=== PATIENT | female | born 1950 | race African-American/Black ===

== ENCOUNTER 2016-09-15 13:21 | Inpatient (IN) | payer MEDICARE, OTHER ==
[~2016-09-15] VITALS: Ht 167.6 cm; Wt 78.3 kg
[2016-09-15] MEDS ORDERED: NITROGLYCERIN 2% 1 GM OINT PKT TD STA (13:30)
[2016-09-15] MEDS ORDERED: ASPIRIN 81 MG TAB PO STA (13:30)
--- NOTE | 2016-09-15 13:49 | ERA ---
ER Documentation Chief Complaint Date/Time DATE: 09/15/16 TIME: 13:42 Chief Complaint HPI 65-year-old female history of coronary artery disease, pulmonary hypertension, mitral valve prolapse who presents emergency room with chest pain. She states that prior to arrival she was sitting in her car and started no pressure-like squeezing chest pain that was substernal and alleviated by her nitroglycerin. The patient also received aspirin and nitroglycerin prior to arrival via EMS. The patient now has 0 out of 10 pain. She denies any pleuritic pain travel or calf swelling. No mid back pain. ROS All systems reviewed and are negative except as per history of present illness. Medications Home Meds Reported Medications Tramadol Hcl* (Ultram*) 50 Mg Tablet, 50 MG PO Q6H Y for PAIN, TAB 09/15/16 Carbamide Peroxide* (Debrox*) 6.5% - 15 Ml Drops, 10 DROP BOTH EARS BID, BOTTLE 09/15/16 Atorvastatin* (Atorvastatin*) 40 Mg Tablet, 40 MG PO QHS, #30 TAB 09/15/16 Promethazine Hcl* (Phenergan*) 25 Mg Tablet, 25 MG PO Q6H Y for NAUSEA AND/OR VOMITING, TAB 09/15/16 Ibuprofen* (Ibuprofen*) 800 Mg Tablet, 800 MG PO Q4 Y for WHEEZING AND SOB, TAB 09/15/16 Mometasone Furoate* (Nasonex*) 50 Mcg/[place] - 17 Gm [place].pump, 2 SPRAY NASAL DAILY, #1 BOTTLE TO EACH NOSTRIL 09/15/16 Albuterol Sulfate* (Ventolin HFA*) 18 Gm Hfa.aer.ad, 2 PUFF INHALATION Q6H, #1 INHALER 09/15/16 Aclidinium [place] (Tudorza Pressair) 400 Mcg Aer.pow.ba, 400 MCG IH BID, EA 09/15/16 Albuterol Sulfate* (Albuterol Sulfate* Neb) 0.083%-3 Ml Neb, 2.5 MG NEB Q3H Y for WHEEZING AND SOB, #30 VIAL 09/15/16 Diphenhydramine Hcl* (Benadryl*) 50 Mg Cap, 50 MG PO Q8 Y for ITCHING, CAP 09/15/16 Esomeprazole Mag Trihydrate (Nexium) 40 Mg Capsule.dr, 40 MG PO DAILY, #30 CAP 09/15/16 Lubiprostone* (Amitiza*) 24 Mcg Capsule, 24 MCG PO BID, #60 CAP 09/15/16 Hydrocodone/Acetaminophen ([place] 10-325 Tablet) 1 Each Tablet, 1 EACH PO Q6 Y for SEVERE PAIN LEVEL 7-10, TAB 09/15/16 Aspirin* (Aspirin* EC) 81 Mg Tablet.dr, 81 MG PO DAILY, TAB 09/15/16 Gabapentin* (Neurontin*) 300 Mg Capsule, 300 MG PO BID, #60 CAP 09/15/16 Baclofen* (Baclofen*) 10 Mg Tablet, 10-20 MG PO BID, TAB 09/15/16 Spironolactone* (Aldactone*) 25 Mg Tablet, 25 MG PO DAILY, #30 TAB 09/15/16 Furosemide* (Furosemide*) 40 Mg Tablet, 40 MG PO DAILY, TAB 09/15/16 Isosorbide Mononitrate* (Isosorbide Mononitrate*) 60 Mg Tab.er.24h, 60 MG PO DAILY, TAB 09/15/16 Atenolol* (Atenolol*) 25 Mg Tablet, 25 MG PO BID, #60 TAB 09/15/16 Allergies Allergies: Coded Allergies: adalimumab (Verified Allergy, Severe, CHEST FLUID RETENTION, 09/15/16) PER PT "HUMIRA GIVES ME PNEUMONIA" azithromycin (Verified Allergy, Severe, HEART CONDITION, 09/15/16) methotrexate (Verified Allergy, Severe, LOW WBC, 09/15/16) PER PT "IT LOWER MY WHITE BLOOD CELL COUNT". rofecoxib (Verified Allergy, Severe, RASH, 09/15/16) aspirin (Verified Adverse Reaction, Unknown, STOMACH PAIN, 09/15/16) celecoxib (Verified Adverse Reaction, Unknown, STOMACH PAIN, 09/15/16) codeine (Verified Adverse Reaction, Unknown, STOMACH PAIN, 09/15/16) FmHx Family History: No diabetes Physical Exam Vitals Vital Signs Date Time Temp Pulse Resp B/P Pulse Ox O2 Delivery O2 Flow Rate FiO2 09/15/16 15:20 86 18 113/70 95 Room Air 09/15/16 14:25 95 17 115/101 97 Room Air 09/15/16 14:03 98.6 98 17 112/78 98 Physical Exam General: Well developed, well nourished, no acute distress Head: Normocephalic, atraumatic. Eyes: Pupils equally reactive, EOM intact ENT: Moist mucous membranes Neck: Supple, no lymphadenopathy Respiratory: Lungs clear bilaterally, no distress Cardiovascular: RRR, no murmurs, rubs, or gallops Abdominal: Soft, non-tender, non-distended, no peritoneal signs : Deferred MSK: No edema, no unilateral swelling, 5/5 strength Neurologic: Alert and oriented, moving all extremities, normal speech, no focal weakness, no cerebellar signs Skin: No rash Psych: Slightly anxious Result Diagram: 09/15/16 1415 09/15/16 1415 Results 24 hrs Laboratory Tests Test 09/15/16 14:15 White Blood Count 8.110^3/ul Red Blood Count 4.7510^6/ul Hemoglobin 13.1g/dl Hematocrit 41.3% Mean Corpuscular Volume 86.9fl Mean Corpuscular Hemoglobin 27.6pg Mean Corpuscular Hemoglobin Concent 31.7g/dl Red Cell Distribution Width 14.4% Platelet Count 11091^3/UL Mean Platelet Volume 9.1fl Neutrophils % 64.1% Lymphocytes % 25.7% Monocytes % 6.7% Eosinophils % 1.9% Basophils % 0.2% Nucleated Red Blood Cells % 0.0/100WBC Neutrophils # 5.210^3/ul Lymphocytes # 2.110^3/ul Monocytes # 0.510^3/ul Eosinophils # 0.210^3/ul Basophils # 0.010^3/ul Nucleated Red Blood Cells # 0.010^3/ul Prothrombin Time 12.6Sec Prothrombin Time Ratio 1.0 INR International Normalized Ratio 0.94 Activated Partial Thromboplast Time 31.3Sec Sodium Level 137mmol/L Potassium Level 2.7mmol/L Chloride Level 96mmol/L Carbon Dioxide Level 33mmol/L Anion Gap 11 Blood Urea Nitrogen 9mg/dl Creatinine 0.82mg/dl Glucose Level 95mg/dl Calcium Level 8.8mg/dl Troponin I < 0.012ng/ml B-Type Natriuretic Peptide 56PG/ML Current Medications Medications (Trade) Dose Ordered Sig/Julius Route PRN Reason Start Time Stop Time Status Last Admin Dose Admin Aspirin (Aspirin) 162 mg ONCE STAT PO 09/15/16 13:30 09/15/16 13:31 DC 09/15/16 14:24 Nitroglycerin (Nitroglycerin 2% Oint) 1 inch ONCE STAT TD 09/15/16 13:30 09/15/16 13:31 DC 09/15/16 14:24 Ondansetron HCl (Zofran Inj) 4 mg ER BRIDGE PRN IV NAUSEA AND/OR VOMITING 09/15/16 16:00 09/16/16 15:59 Acetaminophen (Tylenol Tab) 650 mg ER BRIDGE PRN PO MILD PAIN/FEVER 09/15/16 16:00 09/16/16 15:59 Procedures/MDM EKG, MONITORS, & DIAGNOSTIC IMAGING: EKG: I reviewed and interpreted a 12-lead EKG. Rhythm: Normal sinus rhythm Ectopy: None Intervals: No abnormalities ST segments: No elevations or depressions T waves: No contiguous inversions Repeat EKG: EKG: I reviewed and interpreted a 12-lead EKG. Rhythm: Normal sinus rhythm Ectopy: None Intervals: No abnormalities ST segments: No elevations or depressions T waves: No contiguous inversions Chest x-ray: I reviewed and interpreted a 1 view of the chest Mediastinum: No enlargement Cardiac silhouette: No cardiomegaly Airspace: Clear lung lau bilaterally without evidence of pneumothorax Bones: No evidence of fracture LAB INTERPRETATION: Negative troponin, hypokalemia MEDICAL DECISION MAKING: The patient's history, physical exam and clinical presentation is concerning for possible cardiogenic etiology and acute coronary syndrome. Based on the patient's clinical exam and history and risk factors, I have a much lower clinical concern for pulmonary embolism, acute aortic dissection, pneumothorax, pneumonia, cardiac tamponade HEART Score: 4 MACE Rate: 16.6% Shared Decision Making: We had a conversation regarding risk stratification, MACE rate, and the risks, benefits, alternatives of disposition planning options. Disposition planning: Given the patient's age, comorbidities and description of symptoms I strongly recommend hospitalization and rule out ACS. She states a potential lesion during an angiogram several years ago. No current stents. ER COURSE: Aspirin completed, nitro paste applied. Potassium repleted and patient remains chest pain-free. The patient will be admitted for further management. I kept the patient and/or family informed of laboratory and diagnostic imaging results throughout the emergency room course. DISPOSITION PLAN: Telemetry admission for management of chest pain and rule out of acute coronary syndrome, risk stratification, provocative testing is needed CONSULTATION: Accepting care team and consultations: I discussed the current laboratory data, diagnostic imaging and emergency care provided. Admitting team: Dr. Walker Admitting team indication: Insurance directed Departure Diagnosis: Primary Impression: Chest pain Qualified Code: R07.9 - Chest pain, unspecified type Additional Impression: Hypokalemia Condition: ALLEY Mcfarland MD Sep 15, 2016 13:49
--- NOTE | 2016-09-15 14:12 | RADRPT ---
PROCEDURE: XR Chest. CLINICAL INDICATION: Chest pain and shortness of breath. TECHNIQUE: Single frontal view. COMPARISON: None. FINDINGS: There is a right subclavian vein catheter with the tip in the lower superior vena cava. There is mi ld atelectasis at the lung bases. The lungs are otherwise clear. The heart size is normal. There is no pleural effusion. There is no pneumothorax. IMPRESSION: 1. Right subclavian vein catheter in satisfactory position. 2. Mild atelectasis at the lung bases. 3. Otherwise normal chest x-ray. RPTAT: QQ .Josafat Monteiro MD, Date Time Electronically viewed and signed by .Josafat Monteiro MD, on 09/15/2016 14:12 .R/
[2016-09-15 14:39] LABS: ADD SCAN DIFF NO
[2016-09-15] MEDS ORDERED: ATEN-51 PO (14:41)
[2016-09-15 14:42] LABS: BASOPHILS % 0.2 % (0.0-2.0); EOSINOPHILS # 0.2 10^3/ul (0.0-0.5); EOSINOPHILS % 1.9 % (0.0-7.0); HEMATOCRIT 41.3 % (37.0-47.0); HEMOGLOBIN 13.1 g/dl (12.0-16.0); LYMPHOCYTES # 2.1 10^3/ul (0.8-2.9); LYMPHOCYTES % 25.7 % (15.0-51.0); MEAN CORPUSCULAR HEMOGLOBIN 27.6 pg (29.0-33.0); MEAN CORPUSCULAR HGB CONC 31.7 g/dl (32.0-37.0); MEAN CORPUSCULAR VOLUME 86.9 fl (82.0-101.0); MEAN PLATELET VOLUME 9.1 fl (7.4-10.4); MONOCYTE # 0.5 10^3/ul (0.3-0.9); MONOCYTES % 6.7 % (0.0-11.0); NEUTROPHIL # 5.2 10^3/ul (1.6-7.5); NEUTROPHILS % 64.1 % (39.0-77.0); PLATELET COUNT 310 10^3/UL (140-415); RED BLOOD COUNT 4.75 10^6/ul (4.20-5.40); RED CELL DISTRIBUTION WIDTH 14.4 % (11.5-14.5); WHITE BLOOD COUNT 8.1 10^3/ul (4.8-10.8)
[2016-09-15] MEDS ORDERED: SPIR25TA PO (14:42)
[2016-09-15] MEDS ORDERED: FURO40TA4 PO (14:42)
[2016-09-15] MEDS ORDERED: ISOS60TA PO (14:42)
[2016-09-15] MEDS ORDERED: ASPI-664 PO (14:43)
[2016-09-15] MEDS ORDERED: BACL10TA PO (14:43)
[2016-09-15] MEDS ORDERED: GABA300C PO (14:43)
[2016-09-15] MEDS ORDERED: HYDR-902 PO (14:44)
[2016-09-15] MEDS ORDERED: LUBI24CA7 PO (14:46)
[2016-09-15] MEDS ORDERED: ESOM40CA PO (14:47)
[2016-09-15] MEDS ORDERED: ALBU2.5V3 NEB (14:48)
[2016-09-15] MEDS ORDERED: BEN50 PO (14:48)
[2016-09-15] MEDS ORDERED: NASO17 NASAL (14:49)
[2016-09-15] MEDS ORDERED: ACLI400A2 IH (14:49)
[2016-09-15] MEDS ORDERED: ALBU18HF INHALATION (14:49)
[2016-09-15] MEDS ORDERED: PROM25TA14 PO (14:50)
[2016-09-15] MEDS ORDERED: ATOR40TA68 PO (14:50)
[2016-09-15] MEDS ORDERED: IBUP800T25 PO (14:50)
[2016-09-15] MEDS ORDERED: CARB15DR48 BOTH EARS (14:51)
[2016-09-15] MEDS ORDERED: TRAM-40 PO (14:51)
[2016-09-15 14:57] LABS: INR 0.94; PROTIME 12.6 Sec (12.2-14.2)
[2016-09-15 14:58] LABS: PARTIAL THROMBOPLASTIN TIME 31.3 Sec (25.0-35.0)
[2016-09-15 15:06] LABS: ANION GAP 11 (8-16); BLOOD UREA NITROGEN 9 mg/dl (7-20); CALCIUM 8.8 mg/dl (8.4-10.2); CARBON DIOXIDE 33 mmol/L (21-31); CHLORIDE 96 mmol/L (97-110); CREATININE 0.82 mg/dl (0.44-1.00); GLUCOSE 95 mg/dl (70-220); SODIUM 137 mmol/L (135-144)
[2016-09-15 15:26] LABS: B-TYPE NATRIURETIC PEPTIDE 56 PG/ML (0-125)
[2016-09-15 15:28] LABS: TROPONIN-I < 0.012 ng/ml (0.00-0.12)
[2016-09-15 15:29] LABS: POTASSIUM 2.7 mmol/L (3.5-5.1)
[2016-09-15] MEDS ORDERED: POTASSIUM CHLORIDE (SR) 20 MEQ TAB PO STA (15:46)
[2016-09-15] MEDS ORDERED: ONDANSETRON 4 MG INJ IV PRN (16:00)
[2016-09-15] MEDS ORDERED: ACETAMINOPHEN 325 MG TAB PO PRN ×2 (16:00→18:00)
[2016-09-15] MEDS ORDERED: NACL 0.9% 3 ML SYG IV SCH (18:00)
[2016-09-15] MEDS: ALBUTEROL 18 GM INHALER INH SCH (18:00)
[2016-09-15] MEDS ORDERED: ALBUTEROL 0.083% (NEB) 2.5 MG/3 ML AMP NEB PRN (18:00)
[2016-09-15] MEDS ORDERED: NITROGLYCERIN (SL) 0.4 MG TAB SL PRN (18:00)
[2016-09-15] MEDS ORDERED: IBUPROFEN 800 MG TAB PO PRN (18:00)
[2016-09-15] MEDS ORDERED: HYDROCODONE/APAP (10/325) TAB PO ONE (18:00)
[2016-09-15] MEDS ORDERED: DOCUSATE SODIUM 100 MG CAP PO PRN (18:00)
[2016-09-15] MEDS ORDERED: PROMETHAZINE 25 MG TAB PO PRN (18:00)
[2016-09-15] MEDS ORDERED: NA PHOSPHATE/BIPHOS 133 ML ENEMA PR PRN (18:00)
[2016-09-15] MEDS ORDERED: MAGNESIUM HYDROXIDE 30ML CUP PO PRN (18:00)
[2016-09-15] MEDS ORDERED: morphine 2 MG INJ IV PRN (18:00)
[2016-09-15] MEDS ORDERED: LORAZEPAM 2 MG INJ IV PRN (18:00)
[2016-09-15] MEDS ORDERED: ALBUTEROL/IPRATROPIUM (NEB) 3 ML AMP HHN PRN (18:00)
[2016-09-15 18:33] VITALS: PULSE 92
[2016-09-15 19:57] VITALS: Ht 167.6 cm; Wt 78.3 kg
[2016-09-15 20:14] VITALS: BP 121/69; RESP 18
[2016-09-15 20:18] VITALS: PULSE 84
[2016-09-15 20:19] LABS: CREATINE KINASE 31 IU/L (23-200)
[2016-09-15 20:42] LABS: CK-MB < 0.22 ng/ml (0.0-2.4); TROPONIN-I < 0.012 ng/ml (0.00-0.12)
[2016-09-15] MEDS: GABAPENTIN 300 MG CAP PO SCH (20:52)
[2016-09-15] MEDS: ATENOLOL 25 MG TAB PO SCH (20:52)
[2016-09-15] MEDS: ATORVASTATIN 40 MG TAB PO SCH (20:52)
[2016-09-15] MEDS: HEPARIN 5,000 UNIT/0.5 ML VIAL SC SCH (20:55)
[2016-09-15] MEDS: LUBIPROSTONE 24 MCG CAP PO SCH (21:58)
[2016-09-15] MEDS: CARBAMIDE PEROXIDE 6.5% 15ML OTIC BOTH EARS SCH (21:59)
[2016-09-15] MEDS: traMADol 50 MG TAB PO PRN (22:02)
--- NOTE | 2016-09-15 23:03 | HP ---
Date/Time of Note Date/Time of Note DATE: 09/15/16 TIME: 23:02 Assessment/Plan VTE Prophylaxis VTE Prophylaxis Intervention: heparin Lines/Catheters IV Catheter Type (from [facility]): VINCE CATH Urinary Cath still in place: No Assessment/Plan Chief Complaint/Hosp Course This is a 65 year female being admitted to the telemetry floor for: #1 chest pain: Rule out ACS. Patient does have an extensive cardiac history as well as pulmonary history as well. The current time will trend troponins. Will check 2D echocardiogram. Will replete electrolytes especially potassium as it was 2.7 on admission. Consult cardiology. #2 CHF: The current time there are no signs of CHF exacerbation. Will order an echocardiogram. Consultation to cardiology is in place. #3 pulmonary hypertension: Currently not on any phosphodiesterase inhibitors. On home oxygen of approximately 2-3 L depending on home oxygen saturation. 2D echocardiogram ordered. Will consult pulmonary for any further recommendations #4 pulmonary fibrosis: Continue home inhalers. #4 COPD: Continue home inhalers. #5 hypokalemia: Likely secondary to diuretic use and/or poor p.o. intake. Kidney function right now appears within normal with creatinine of 0.8. Will hold Lasix at this time, continue spironolactone. Replete potassium. recheck BMP in the a.m. #6 rheumatoid arthritis: Continue home medications. #7 history of CVA: Continue home medications. #9 coronary artery disease: Continue home medications please see #1 for further information. #10 rheumatoid arthritis: Continue home medications. #11 DVT and GI prophylaxis: Heparin, Protonix. Further treatment strategy will be implemented as per the clinical course Problems: HPI/ROS Admit Date/Time Admit Date/Time Sep 15, 2016 at 15:43 Hx of Present Illness Chief complaint: Chest pain 65-year-old female history of coronary artery disease, pulmonary hypertension, mitral valve prolapse who presents emergency room with chest pain. She states that prior to arrival she was sitting in her car and started to have pressure- like squeezing chest pain that was substernal and alleviated by her nitroglycerin. The patient also received aspirin and nitroglycerin prior to arrival via EMS. The patient now has 0 out of 10 pain. She denies any pleuritic pain, no recent travel travel or calf swelling. No mid back pain. She does report that over the last few days she has been not having much of an appetite. She has been using her Lasix daily. Allergies: Adalimumab, aspirin, azithromycin, celecoxib, codeine, methotrexate, rofecoxib Medications: See MAR ROS Const: As per HPI Eyes : No pain discharge or redness or change in visual acuity ENT: No pain, sore throat, congestion, congestion, dysphagia or discharge Respiratory: As per HPI Cardiovascular: As per H GI : no change in appetite, abdominal pain, nausea, vomiting, diarrhea, constipation, or change in the color his stool Genitourinary: No dysuria, hematuria, flank pain , discharge or CVA tenderness Musculoskeletal: No joint pain, back pain, neck pain, restricted range of motion in neck or joints Skin: No rash, bruising or hives Neuro: No headache, dizziness, syncope, seizure, focal weakness Endocrine: No polyuria, polydipsia, temperature intolerance Psych: No hallucination, depression, anxiety or suicidal ideation PMH/Family/Social Past Medical History Rheumatoid arthritis, coronary artery disease, COPD, pulmonary fibrosis, mitral valve prolapse, congestive heart failure, CVA in 2004, herniated disc, prediabetes, pelvic tumor status post MAXIME Past Surgical History Cholecystectomy, total abdominal hysterectomy Family History Significant Family History: cancer (Lung cancer: Father) Social History Alcohol Use: none Smoking Status: Former smoker (2 packs per day 35 years, quit 15 years ago) Drug Use: none Exam/Review of Systems Vital Signs Vitals Vital Signs Date Time Temp Pulse Resp B/P Pulse Ox O2 Delivery O2 Flow Rate FiO2 09/15/16 20:18 84 09/15/16 20:14 98.1 18 121/69 93 09/15/16 20:00 Nasal Cannula 2.0 Exam Exam General: Patient is a pleasant and well-developed female lying in bed in no acute distress. HEENT: Atraumatic, normocephalic. The pupils are equal, round and reactive. Extraocular motor are intact, wearing nasal cannula Neck: Supple with full range of motion. No rigidity or meningismus Chest: Nontender Lungs: Clear to auscultation bilaterally no crackles rales or wheezing Heart: Normal S1-S2, Regular rhythm and rate. No overt murmur appreciated Abdomen: Soft , nontender, nondistended , bowel sounds are present. No guarding no rebound tenderness , No masses or organomegaly. No costovertebral temporal angle mass Extremities: Normal to inspection, no edema no cyanosis Neurologic: Normal mental status, speech normal, cranial nerves II through XII are intact, motor and sensory are intact, patient does state that she has some weakness at times on the right lower extremity secondary to her CVA however on exam her strength is 5 out of 5 in bilateral upper and lower extremities while lying down. Additional Comments EKG: Rhythm: Normal sinus rhythm Ectopy: None Intervals: No abnormalities ST segments: No elevations or depressions T waves: No contiguous inversions As per ED physician documented PROCEDURE: XR Chest. CLINICAL INDICATION: Chest pain and shortness of breath. TECHNIQUE: Single frontal view. COMPARISON: None. FINDINGS: There is a right subclavian vein catheter with the tip in the lower superior vena cava. There is mild atelectasis at the lung bases. The lungs are otherwise clear. The heart size is normal. There is no pleural effusion. There is no pneumothorax. IMPRESSION: 1. Right subclavian vein catheter in satisfactory position. 2. Mild atelectasis at the lung bases. 3. Otherwise normal chest x-ray. RPTAT: QQ .Josafat Monteiro MD, MD Date Time Electronically viewed and signed by .Josafat Monteiro MD, MD on 09/15/2016 14:12 Labs Result Diagram: 09/15/16 1415 09/15/16 1415 Medications Medications Current Medications Ondansetron HCl (Zofran Inj) 4 mg Q6H PRN IV NAUSEA AND/OR VOMITING; Start 09/15 at 18:00 Acetaminophen (Tylenol Tab) 650 mg Q6H PRN PO PAIN LEVEL 1-3 OR FEVER; Start at 18:00 Acetaminophen/ Hydrocodone Bitart ([place] (5/325)) 1 tab Q6H PRN PO MODERATE PAIN LEVEL 4-6; Start 09/15/16 at 18:00 Morphine Sulfate (morphine) 2 mg Q4H PRN IV SEVERE PAIN LEVEL 7-10; Start at 18:00 Docusate Sodium (Colace) 100 mg Q12H PRN PO CONSTIPATION; Start 09/15/16 at 18: 00 Magnesium Hydroxide (Milk Of Mag) 30 ml DAILY PRN PO CONSTIPATION; Start at 18:00 Sodium Biphosphate/ Sodium Phosphate (Fleet Enema) 133 ml DAILY PRN [place] CONSTIPATION; Start 09/15/16 at 18:00 Heparin Sodium (Porcine) (Heparin (5000 Units/0.5 ml)) 5,000 unit Q12 SC Last administered on 09/15/16 20:55; Admin Dose 5,000 UNIT; Start 09/15/16 at 21:00 Lorazepam (Ativan) 0.5 mg Q6H PRN IV ANXIETY; Start 09/15/16 at 18:00 Nitroglycerin (Nitroglycerin (Sl Tab) 0.4 Mg) 1 tab Q5M PRN SL ANGINA; Start at 18:00 Albuterol (Ventolin Hfa) 2 puff Q6 INH ; Start 09/15/16 at 18:00 Atenolol (Tenormin) 25 mg BID PO Last administered on 09/15/16 20:52; Admin Dose 25 MG; Start 09/15/16 at 21:00 Atorvastatin Calcium (Lipitor) 40 mg QHS PO Last administered on 09/15/16 20:52 ; Admin Dose 40 MG; Start 09/15/16 at 21:00 Carbamide Peroxide (Debrox Otic) 10 drop BID BOTH EARS Last administered on 09/15 21:59; Admin Dose 10 DROP; Start 09/15/16 at 21:00 Diphenhydramine HCl (Benadryl) 50 mg Q8 PRN PO ITCHING; Start 09/15/16 at 18:00 Furosemide (Lasix) 40 mg DAILY PO ; Start 09/16/16 at 09:00 Gabapentin (Neurontin) 300 mg BID PO Last administered on 09/15/16 20:52; Admin Dose 300 MG; Start 09/15/16 at 21:00 Ibuprofen (Motrin) 800 mg Q4 PRN PO WSOB; Start 09/15/16 at 18:00 Isosorbide Mononitrate (Imdur) 60 mg DAILY PO ; Start 09/16/16 at 09:00 Lubiprostone (Amitiza) 24 mcg BID PO Last administered on 09/15/16 21:58; Admin Dose 24 MCG; Start 09/15/16 at 21:00 Promethazine HCl (Phenergan) 25 mg Q6H PRN PO NAUSEA AND/OR VOMITING; Start 09/15/16 at 18:00 Spironolactone (Aldactone) 25 mg DAILY PO ; Start 09/16/16 at 09:00 Tramadol HCl (Ultram) 50 mg Q6H PRN PO PAIN Last administered on 09/15/16t 22:02 ; Admin Dose 50 MG; Start 09/15/16 at 18:00 Pantoprazole (Protonix Tab) 40 mg DAILY@06 PO ; Start 09/16/16 at 06:00 TREY EUGENE Sep 15, 2016 23:03
[2016-09-16] VITALS (13 sets, daily range): BP systolic 95–126; BP diastolic 53–66; PULSE 66–81; RESP 16–22
[2016-09-16] MEDS: ALBUTEROL 18 GM INHALER INH SCH ×5 (01:06→17:59)
[2016-09-16] MEDS ORDERED: POTASSIUM CHLORIDE (SR) 20 MEQ TAB PO STA (01:36)
[2016-09-16] MEDS: HYDROCODONE/APAP (5/325) TAB PO PRN ×4 (02:05→22:20)
[2016-09-16] MEDS: ONDANSETRON 4 MG INJ IV PRN ×4 (02:06→22:20)
[2016-09-16 02:08] LABS: CREATINE KINASE 30 IU/L (23-200)
[2016-09-16 02:19] LABS: CK-MB 0.33 ng/ml (0.0-2.4)
[2016-09-16 02:20] LABS: TROPONIN-I < 0.012 ng/ml (0.00-0.12)
[2016-09-16] MEDS: PANTOPRAZOLE (EC) 40 MG TAB PO SCH (05:34)
[2016-09-16 06:52] LABS: CHOL/HDL RATIO 3.5 RATIO
[2016-09-16 07:09] LABS: THYROID STIMULATING HORMONE 1.72 MIU/L (0.465-4.680)
[2016-09-16] MEDS ORDERED: PE/SHARK OIL/MO/PETROL 30 GM OINT PR ONE ×2 (09:00→10:00)
[2016-09-16] MEDS ORDERED: MOMETASONE FUROATE NASAL SCH (09:00)
[2016-09-16] MEDS ORDERED: FUROSEMIDE 40 MG TAB PO SCH (09:00)
[2016-09-16] MEDS: LUBIPROSTONE 24 MCG CAP PO SCH ×2 (09:12→20:11)
[2016-09-16] MEDS: CARBAMIDE PEROXIDE 6.5% 15ML OTIC BOTH EARS SCH ×2 (09:12→20:14)
[2016-09-16] MEDS: FLUTICASONE 0.05% 16 GM NAS SPRAY NASAL SCH (09:13)
[2016-09-16] MEDS: SPIRONOLACTONE 25 MG TAB PO SCH (09:14)
[2016-09-16] MEDS: GABAPENTIN 300 MG CAP PO SCH ×2 (09:15→20:11)
[2016-09-16] MEDS: ATENOLOL 25 MG TAB PO SCH ×2 (09:16→21:00)
[2016-09-16] MEDS: ISOSORBIDE MONONITRATE(SR)60 MG TAB PO SCH (09:16)
[2016-09-16] MEDS: HEPARIN 5,000 UNIT/0.5 ML VIAL SC SCH ×2 (09:24→20:13)
[2016-09-16] MEDS: [UNRECOGNIZED DRUG - REMARK] XX SCH ×2 (09:30→17:30)
[2016-09-16] MEDS: traMADol 50 MG TAB PO PRN ×2 (09:35→17:54)
[2016-09-16 10:06] LABS: ADD SCAN DIFF NO
[2016-09-16 10:15] LABS: BASOPHILS % 0.6 % (0.0-2.0); EOSINOPHILS # 0.2 10^3/ul (0.0-0.5); EOSINOPHILS % 4.4 % (0.0-7.0); HEMOGLOBIN 11.9 g/dl (12.0-16.0); MEAN CORPUSCULAR HEMOGLOBIN 28.1 pg (29.0-33.0); MEAN CORPUSCULAR HGB CONC 31.3 g/dl (32.0-37.0); MEAN CORPUSCULAR VOLUME 89.6 fl (82.0-101.0); MEAN PLATELET VOLUME 9.4 fl (7.4-10.4); MONOCYTE # 0.4 10^3/ul (0.3-0.9); MONOCYTES % 8.8 % (0.0-11.0); NEUTROPHIL # 2.3 10^3/ul (1.6-7.5); NEUTROPHILS % 45.6 % (39.0-77.0); PLATELET COUNT 281 10^3/UL (140-415); RED BLOOD COUNT 4.24 10^6/ul (4.20-5.40); RED CELL DISTRIBUTION WIDTH 14.6 % (11.5-14.5)
[2016-09-16 10:31] LABS: CALCIUM 8.8 mg/dl (8.4-10.2); CREATININE 0.81 mg/dl (0.44-1.00); POTASSIUM 4.2 mmol/L (3.5-5.1)
--- NOTE | 2016-09-16 11:12 | PN ---
Date/Time of Note Date/Time of Note DATE: 09/16/16 TIME: 11:09 Assessment/Plan VTE Prophylaxis VTE Prophylaxis Intervention: SCD's Lines/Catheters IV C[facility]ter Type [facility]from [facility] [place] Cath Urinary Cath still in place: No Assessment/Plan Chief Complaint/Hosp Course 1. Chest pain. To rule out acute coronary syndrome. Serial troponins negative so far. Pending 2D echocardiogram. Pending cardiology evaluation. No aspirin since the patient is allergic to aspirin. 2. History of congestive heart failure. No evidence of CHF exacerbation. Pending 2D echocardiogram. Pending cardiology evaluation. 3. Pulmonary hypertension. Continue supplemental oxygen. Pending 2D echocardiogram. 4. COPD. Continue continue inhaled bronchodilators. Continue supplemental oxygen. No evidence of any exacerbation. 5. Hypokalemia. Resolved. 6. Prediabetes. Hemoglobin A1c 6.2. Random blood glucose stable. 7. Dyslipidemia. Continue statins. Fasting lipid panel suboptimal. 8. Essential hypertension. Continue antihypertensives. 9. CAD. Continue statins. The patient is allergic to aspirin. 10. History of stroke. Continue statins. 11. History of rheumatoid arthritis. Monitor. 12. Fluids, electrolytes, and nutrition. Low-cholesterol diet. 13. DVT prophylaxis. Bilateral sequential compression devices. 14. Gastrointestinal prophylaxis. Proton pump inhibitors. 15. Plan. Continue current management. Await pulmonary and cardiology evaluation. Case discussed with Dr. Walker. Problems: Subjective 24 Hr Interval Summary Free Text/Dictation Complains of dyspnea with minimal exertion. Denies any chest pain. Exam/Review of Systems Vital Signs Vitals Vital Signs Date Time Temp Pulse Resp B/P Pulse Ox O2 Delivery O2 Flow Rate FiO2 09/16/16 08:05 79 09/16/16 07:49 98.3 20 109/58 92 09/16/16 01:00 Nasal Cannula 2.0 Intake and Output 09/15/16 09/15/16 09/16/16 15:00 23:00 07:00 Intake Total 840 ml Balance 840 ml Exam General: Adequately build 65 year-old female lying in bed in no apparent distress. HEENT: Normocephalic, atraumatic. Eyes: Anicteric sclerae, conjunctivae clear. ENT: Nasal septum midline, oral mucosa moist. Neck supple, no JVD noticed. Respiratory: Bilaterally diminished breath sounds. Minimal use of accessory muscles of respiration. Cardiovascular: S1, S2 heard. No murmurs or gallops. Abdomen: Soft, nontender, and nondistended. Bowel sounds positive in all 4 quadrants. Genitourinary: Deferred. Extremities: No cyanosis, no edema. Clubbing of fingers. Peripheral pulses palpable. Neurologic: Cranial nerves II through XII grossly intact. The patient is awake, alert, and oriented. Skin: Normal skin turgor. No skin rashes. Results Result Diagram: 09/16/16 0920 09/16/16 0944 Results 24 hrs Laboratory Tests Test 09/15/16 14:15 09/15/16 19:40 09/16/16 01:30 09/16/16 05:50 White Blood Count 8.1 Red Blood Count 4.75 Hemoglobin 13.1 Hematocrit 41.3 Mean Corpuscular Volume 86.9 Mean Corpuscular Hemoglobin 27.6 L Mean Corpuscular Hemoglobin Concent 31.7 L Red Cell Distribution Width 14.4 Platelet Count 310 Mean Platelet Volume 9.1 Neutrophils % 64.1 Lymphocytes % 25.7 Monocytes % 6.7 Eosinophils % 1.9 Basophils % 0.2 Nucleated Red Blood Cells % 0.0 Neutrophils # 5.2 Lymphocytes # 2.1 Monocytes # 0.5 Eosinophils # 0.2 Basophils # 0.0 Nucleated Red Blood Cells # 0.0 Prothrombin Time 12.6 Prothrombin Time Ratio 1.0 INR International Normalized Ratio 0.94 Activated Partial Thromboplast Time 31.3 Sodium Level 137 Potassium Level 2.7 *L Chloride Level 96 L Carbon Dioxide Level 33 H Anion Gap 11 Blood Urea Nitrogen 9 Creatinine 0.82 Glucose Level 95 Calcium Level 8.8 Troponin I < 0.012 < 0.012 < 0.012 B-Type Natriuretic Peptide 56 Creatine Kinase 31 30 Creatine Kinase Index 0.7 1.1 Creatinine Kinase MB (Mass) < 0.22 0.33 Free Thyroxine 1.23 Hemoglobin A1c 6.2 H Triglycerides Level 133 Cholesterol Level 171 LDL Cholesterol, Calculated 96 HDL Cholesterol 48 Cholesterol/HDL Ratio 3.5 Thyroid Stimulating Hormone (TSH) 1.720 Test 09/16/16 09:20 09/16/16 09:44 White Blood Count 5.0 # Red Blood Count 4.24 Hemoglobin 11.9 L Hematocrit 38.0 Mean Corpuscular Volume 89.6 Mean Corpuscular Hemoglobin 28.1 L Mean Corpuscular Hemoglobin Concent 31.3 L Red Cell Distribution Width 14.6 H Platelet Count 281 Mean Platelet Volume 9.4 Neutrophils % 45.6 Lymphocytes % 40.0 Monocytes % 8.8 Eosinophils % 4.4 Basophils % 0.6 Nucleated Red Blood Cells % 0.0 Neutrophils # 2.3 Lymphocytes # 2.0 Monocytes # 0.4 Eosinophils # 0.2 Basophils # 0.0 Nucleated Red Blood Cells # 0.0 Sodium Level 143 Potassium Level 4.2 Chloride Level 100 Carbon Dioxide Level 32 H Anion Gap 15 Blood Urea Nitrogen 12 Creatinine 0.81 Glucose Level 121 Calcium Level 8.8 Medications Medications Current Medications Ondansetron HCl (Zofran Inj) 4 mg Q6H PRN IV NAUSEA AND/OR VOMITING Last administered on 09/16/16 08:19; Admin Dose 4 MG; Start 09/15/16 at 18:00 Acetaminophen (Tylenol Tab) 650 mg Q6H PRN PO PAIN LEVEL 1-3 OR FEVER; Start at 18:00 Acetaminophen/ Hydrocodone Bitart ([place] (5/325)) 1 tab Q6H PRN PO MODERATE PAIN LEVEL 4-6 Last administered on 09/16/16 08:19; Admin Dose 1 TAB; Start 09/15 at 18:00 Morphine Sulfate (morphine) 2 mg Q4H PRN IV SEVERE PAIN LEVEL 7-10; Start at 18:00 Docusate Sodium (Colace) 100 mg Q12H PRN PO CONSTIPATION; Start 09/15/16 at 18: 00 Magnesium Hydroxide (Milk Of Mag) 30 ml DAILY PRN PO CONSTIPATION; Start at 18:00 Sodium Biphosphate/ Sodium Phosphate (Fleet Enema) 133 ml DAILY PRN [place] CONSTIPATION; Start 09/15/16 at 18:00 Heparin Sodium (Porcine) (Heparin (5000 Units/0.5 ml)) 5,000 unit Q12 SC Last administered on 09/16/16 09:24; Admin Dose 5,000 UNIT; Start 09/15/16 at 21:00 Lorazepam (Ativan) 0.5 mg Q6H PRN IV ANXIETY; Start 09/15/16 at 18:00 Nitroglycerin (Nitroglycerin (Sl Tab) 0.4 Mg) 1 tab Q5M PRN SL ANGINA; Start at 18:00 Albuterol (Ventolin Hfa) 2 puff Q6 INH Last administered on 09/16/16 05:35; Admin Dose 2 PUFF; Start 09/15/16 at 18:00 Atenolol (Tenormin) 25 mg BID PO Last administered on 09/16/16 09:16; Admin Dose 25 MG; Start 09/15/16 at 21:00 Atorvastatin Calcium (Lipitor) 40 mg QHS PO Last administered on 09/15/16 20:52 ; Admin Dose 40 MG; Start 09/15/16 at 21:00 Carbamide Peroxide (Debrox Otic) 10 drop BID BOTH EARS Last administered on 09/16 09:12; Admin Dose 10 DROP; Start 09/15/16 at 21:00 Diphenhydramine HCl (Benadryl) 50 mg Q8 PRN PO ITCHING; Start 09/15/16 at 18:00 Furosemide (Lasix) 40 mg DAILY PO ; Start 09/16/16 at 09:00; Status Future Hold Gabapentin (Neurontin) 300 mg BID PO Last administered on 09/16/16 09:15; Admin Dose 300 MG; Start 09/15/16 at 21:00 Ibuprofen (Motrin) 800 mg Q4 PRN PO WSOB; Start 09/15/16 at 18:00 Isosorbide Mononitrate (Imdur) 60 mg DAILY PO Last administered on 09/16/16 09: 16; Admin Dose 60 MG; Start 09/16/16 at 09:00 Lubiprostone (Amitiza) 24 mcg BID PO Last administered on 09/16/16 09:12; Admin Dose 24 MCG; Start 09/15/16 at 21:00 Promethazine HCl (Phenergan) 25 mg Q6H PRN PO NAUSEA AND/OR VOMITING; Start 09/15/16 at 18:00 Spironolactone (Aldactone) 25 mg DAILY PO Last administered on 09/16/16 09:14; Admin Dose 25 MG; Start 09/16/16 at 09:00 Tramadol HCl (Ultram) 50 mg Q6H PRN PO PAIN Last administered on 09/16/16 09:35 ; Admin Dose 50 MG; Start 09/15/16 at 18:00 Pantoprazole (Protonix Tab) 40 mg DAILY@06 PO Last administered on 09/16/16 05: 34; Admin Dose 40 MG; Start 09/16/16 at 06:00 Miscellaneous Information 400 mcg BID IH ; Start 09/16/16 at 09:00; Status UNV Fluticasone Propionate (Flonase 0.05% Nasal) 2 spray DAILY NASAL Last administered on 09/16/16 09:13; Admin Dose 2 SPRAY; Start 09/16/16 at 09:00 Miscellaneous Information (*Order Clarification Bulletin) Tad Castillo) 400 MCG: PLE... Q8H XX ; Start 09/16/16 at 09:30 JESSI VARGAS NP Sep 16, 2016 11:11
[2016-09-16] MEDS: DIPHENHYDRAMINE 50 MG CAP PO PRN ×2 (12:38→20:11)
--- NOTE | 2016-09-16 13:08 | RADRPT ---
Echocardiogram Report Patient Name: SHAHID CHIN Gender: Female Date: 1950 Study Date: 16-Sep-2016 Carousel Operator: Tho [facility] Location: 5545 Ref. Physician: KEIRA VASQUEZ Quality: Adequate Procedures: Transthoracic echocardiogram with complete 2D, M-Mode, and doppler examination. Indications: Chest Pain, Hx of MVP. STEMI. 2D/M Mode Doppler Measurement Value Normal Ranges Measurement Value Normal Ranges LVIDd 2D 4.1 3.5 - 5.6 cm AV Peak Sam 1.2 m/sec LVIDs 2D 2.8 2.1 - 4.1 cm AV Peak PG 6.0 mmHg FS 2D 33.1 % LVOT Peak Sam 0.8 m/sec LVPWd 2D 1.0 0.6 - 1.1 cm LVOT Peak PG 3.0 mmHg IVSd 2D 0.8 0.6 - 1.1 cm MV E Peak Sam 0.9 m/sec IVS/LVPW 2D 0.8 MV A Peak Sam 1.1 m/sec AoR Diam 2D 2.3 2.0 - 3.7 cm MV E/A 0.8 LA/Ao 2D 1 0 - 1 MV Decel Time 204 msec EDV 2D 71.0 cm3 MV E/A 0.8 ESV 2D 21.3 cm3 TR Peak Sam 2.7 m/sec LA Dimen 2D 3.2 2.3 - 4.0 cm TR Peak PG 30.0 mmHg RVSP 40.0 mmHg Findings Left Ventricle: Normal left ventricular systolic function. Normal left ventricular wall thickness. Ejection fraction is visually estimated at 60 %. Tissue Doppler/Mitral Doppler indices are consistent with impaired relaxation (Stage I diastolic dysfunction). Right Ventricle: Normal right ventricular size. Normal right ventricular systolic function. Left Atrium: The left atrium is normal in size. Right Atrium: The right atrium is normal in size. Mitral Valve: Mitral valve leaflets appear mildly thickened. Mild mitral annular calcification. Trace mitral regurgitation. Aortic Valve: Normal appearance of the aortic valve. No significant aortic stenosis or insufficiency. Tricuspid Valve: Normal appearance of the tricuspid valve. Estimated peak PA systolic pressure 40 mmHg. There is mild tricuspid regurgitation. Pulmonic Valve: Pulmonic valve not well visualized. There is trace pulmonic regurgitation. Pericardium: Normal pericardium with no significant pericardial effusion. Aorta: Normal aortic root. IVC: Normal size and normal respiratory collapse consistent with normal right atrial pressure. Conclusions 1.Normal left ventricular systolic function. Normal left ventricular wall thickness. Ejection fraction is visually estimated at 60 %. Tissue Doppler/Mitral Doppler indices are consistent with impaired relaxation (Stage I diastolic dysfunction). 2.Normal appearance of the aortic valve. No significant aortic stenosis or insufficiency. 3.Normal appearance of the tricuspid valve. Estimated peak PA systolic pressure 40 mmHg. There is mild tricuspid regurgitation. 4.Mitral valve leaflets appear mildly thickened. Mild mitral annular calcification. Trace mitral regurgitation. Electronically Signed By: Yordy Jean Baptiste 16-Sep-2016 13:07:36 -0700 Patient Name: SHAHID CHIN Study Date: 16-Sep-2016 [id number]
--- NOTE | 2016-09-16 14:25 | CONS ---
Date/Time of Note Date/Time of Note DATE: 09/16/16 TIME: 14:18 Assessment/Plan Assessment/Plan Additional Assessment/Plan A/P: 1.Chest pain: appears atypical R/O CAD 2. reported hx of CAD/ AR 3. reported history of CVA 4. reported hx of pulmonary fibrosis 5. COPD 6. HTN 7. dyslipidemia 8. reported hx of CHF, Mitral valve prolapse: not confirmed by echo though. ASA R/O AR LEXISCAN TOMORROW. Dr Rodas will f/u tomorrow. tele for now. Consultation Date/Type/Reason Admit Date/Time Sep 15, 2016 at 15:43 Date of Consultation: Sep 16, 2016 Reason for Consultation Chest pain Hx of Present Illness Thank you for this referral. This is a 65-year-old -[place] female with reported history of congestive heart failure mitral valve prolapse and coronary artery disease AR CVA who presented to emergency room with complaint of chest pain. Patient says he was driving through when she had chest pressure anteriorly. There was mild to moderate and lasted for a few minutes probably. Patient took nitroglycerin did not help came to emergency room. Patient currently chest pain-free. Family history patient father probably had an AR. Past medical history: Patient reported that she has had 2 heart attack. Per her report she has had 2 angiogram both of which did not show any major block artery that will require intervention. She also stated she has had a stroke about 10 years ago. She reports history of rheumatoid arthritis hypertension mitral valve prolapse congestive heart failure. Pulmonary fibrosis. Review of system as above only. Social History Alcohol Use: none Smoking Status: Former smoker (2 packs per day 35 years, quit 15 years ago) Drug Use: none Exam/Review of Systems Vital Signs Vitals Vital Signs Date Time Temp Pulse Resp B/P Pulse Ox O2 Delivery O2 Flow Rate FiO2 09/16/16 12:08 80 09/16/16 11:25 98.0 20 118/66 96 09/16/16 07:45 Nasal Cannula 2.0 Intake and Output 09/15/16 09/15/16 09/16/16 15:00 23:00 07:00 Intake Total 840 ml Balance 840 ml Exam General: no acute distress HEENT: NC/AT. pupils are equal. round. NECK: NO JVD. no stridor. CV: RRR. systolic murmur; no gallop or rubs. PULM: no wheezing or rhonchi. GI: SOFT, NT, ND, no rebound or guarding Extremity: trace B/L LE edema. no clubbing. neuro: awake and alert, OX3. Psych: anxious but pleasant rectal: deferred : normal ECH NSR nonspecific T wave abn ECHO reviewed. Results Result Diagram: 09/16/16 0920 09/16/16 0944 Results 24 hrs Laboratory Tests Test 09/15/16 19:40 09/16/16 01:30 09/16/16 05:50 09/16/16 09:20 Creatine Kinase 31 30 Creatine Kinase Index 0.7 1.1 Creatinine Kinase MB (Mass) < 0.22 0.33 Troponin I < 0.012 < 0.012 Free Thyroxine 1.23 Hemoglobin A1c 6.2 H Triglycerides Level 133 Cholesterol Level 171 LDL Cholesterol, Calculated 96 HDL Cholesterol 48 Cholesterol/HDL Ratio 3.5 Thyroid Stimulating Hormone (TSH) 1.720 White Blood Count 5.0 # Red Blood Count 4.24 Hemoglobin 11.9 L Hematocrit 38.0 Mean Corpuscular Volume 89.6 Mean Corpuscular Hemoglobin 28.1 L Mean Corpuscular Hemoglobin Concent 31.3 L Red Cell Distribution Width 14.6 H Platelet Count 281 Mean Platelet Volume 9.4 Neutrophils % 45.6 Lymphocytes % 40.0 Monocytes % 8.8 Eosinophils % 4.4 Basophils % 0.6 Nucleated Red Blood Cells % 0.0 Neutrophils # 2.3 Lymphocytes # 2.0 Monocytes # 0.4 Eosinophils # 0.2 Basophils # 0.0 Nucleated Red Blood Cells # 0.0 Test 09/16/16 09:44 Sodium Level 143 Potassium Level 4.2 Chloride Level 100 Carbon Dioxide Level 32 H Anion Gap 15 Blood Urea Nitrogen 12 Creatinine 0.81 Glucose Level 121 Calcium Level 8.8 Medications Medications Current Medications Ondansetron HCl (Zofran Inj) 4 mg Q6H PRN IV NAUSEA AND/OR VOMITING Last administered on 09/16/16t 08:19; Admin Dose 4 MG; Start 09/15/16 at 18:00 Acetaminophen (Tylenol Tab) 650 mg Q6H PRN PO PAIN LEVEL 1-3 OR FEVER; Start at 18:00 Acetaminophen/ Hydrocodone Bitart ([place] (5/325)) 1 tab Q6H PRN PO MODERATE PAIN LEVEL 4-6 Last administered on 09/16/16 08:19; Admin Dose 1 TAB; Start 09/15 at 18:00 Morphine Sulfate (morphine) 2 mg Q4H PRN IV SEVERE PAIN LEVEL 7-10; Start at 18:00 Docusate Sodium (Colace) 100 mg Q12H PRN PO CONSTIPATION; Start 09/15/16 at 18: 00 Magnesium Hydroxide (Milk Of Mag) 30 ml DAILY PRN PO CONSTIPATION; Start at 18:00 Sodium Biphosphate/ Sodium Phosphate (Fleet Enema) 133 ml DAILY PRN [place] CONSTIPATION; Start 09/15/16 at 18:00 Heparin Sodium (Porcine) (Heparin (5000 Units/0.5 ml)) 5,000 unit Q12 SC Last administered on 09/16/16 09:24; Admin Dose 5,000 UNIT; Start 09/15/16 at 21:00 Lorazepam (Ativan) 0.5 mg Q6H PRN IV ANXIETY; Start 09/15/16 at 18:00 Nitroglycerin (Nitroglycerin (Sl Tab) 0.4 Mg) 1 tab Q5M PRN SL ANGINA; Start at 18:00 Albuterol (Ventolin Hfa) 2 puff Q6 INH Last administered on 09/16/16 12:39; Admin Dose 2 PUFF; Start 09/15/16 at 18:00 Atenolol (Tenormin) 25 mg BID PO Last administered on 09/16/16 09:16; Admin Dose 25 MG; Start 09/15/16 at 21:00 Atorvastatin Calcium (Lipitor) 40 mg QHS PO Last administered on 09/15/16 20:52 ; Admin Dose 40 MG; Start 09/15/16 at 21:00 Carbamide Peroxide (Debrox Otic) 10 drop BID BOTH EARS Last administered on 09/16 09:12; Admin Dose 10 DROP; Start 09/15/16 at 21:00 Diphenhydramine HCl (Benadryl) 50 mg Q8 PRN PO ITCHING Last administered on 09/16 12:38; Admin Dose 50 MG; Start 09/15/16 at 18:00 Furosemide (Lasix) 40 mg DAILY PO ; Start 09/16/16 at 09:00; Status Future Hold Gabapentin (Neurontin) 300 mg BID PO Last administered on 09/16/16 09:15; Admin Dose 300 MG; Start 09/15/16 at 21:00 Ibuprofen (Motrin) 800 mg Q4 PRN PO WSOB; Start 09/15/16 at 18:00 Isosorbide Mononitrate (Imdur) 60 mg DAILY PO Last administered on 09/16/16 09: 16; Admin Dose 60 MG; Start 09/16/16 at 09:00 Lubiprostone (Amitiza) 24 mcg BID PO Last administered on 09/16/16 09:12; Admin Dose 24 MCG; Start 09/15/16 at 21:00 Promethazine HCl (Phenergan) 25 mg Q6H PRN PO NAUSEA AND/OR VOMITING; Start 09/15/16 at 18:00 Spironolactone (Aldactone) 25 mg DAILY PO Last administered on 09/16/16 09:14; Admin Dose 25 MG; Start 09/16/16 at 09:00 Tramadol HCl (Ultram) 50 mg Q6H PRN PO PAIN Last administered on 09/16/16 09:35 ; Admin Dose 50 MG; Start 09/15/16 at 18:00 Pantoprazole (Protonix Tab) 40 mg DAILY@06 PO Last administered on 09/16/16 05: 34; Admin Dose 40 MG; Start 09/16/16 at 06:00 Miscellaneous Information 400 mcg BID IH ; Start 09/16/16 at 09:00; Status UNV Fluticasone Propionate (Flonase 0.05% Nasal) 2 spray DAILY NASAL Last administered on 09/16/16 09:13; Admin Dose 2 SPRAY; Start 09/16/16 at 09:00 Miscellaneous Information (*Order Clarification Bulletin) Tudorza Pressair) 400 MCG: PLE... Q8H XX ; Start 09/16/16 at 09:30 MAHENDRA JACOME MD Sep 16, 2016 14:25
[2016-09-16] MEDS: ATORVASTATIN 40 MG TAB PO SCH (20:11)
[2016-09-16] MEDS: NYSTATIN SUSP 5 ML CUP PO PRN (23:13)
[2016-09-17] VITALS (12 sets, daily range): BP systolic 96–121; BP diastolic 52–78; PULSE 72–92; RESP 20–21
[2016-09-17] MEDS: [UNRECOGNIZED DRUG - REMARK] XX SCH (01:30)
[2016-09-17] MEDS: DIPHENHYDRAMINE 50 MG CAP PO PRN ×2 (04:11→22:58)
[2016-09-17] MEDS: ONDANSETRON 4 MG INJ IV PRN ×3 (05:17→18:48)
[2016-09-17] MEDS: PANTOPRAZOLE (EC) 40 MG TAB PO SCH (05:18)
[2016-09-17] MEDS: HYDROCODONE/APAP (5/325) TAB PO PRN ×3 (05:18→18:48)
[2016-09-17] MEDS: ALBUTEROL 18 GM INHALER INH SCH ×4 (06:45→17:30)
[2016-09-17] MEDS: NYSTATIN SUSP 5 ML CUP PO PRN ×2 (06:49→17:38)
[2016-09-17 07:37] LABS: ADD SCAN DIFF NO
[2016-09-17 07:41] LABS: BASOPHILS % 0.4 % (0.0-2.0); EOSINOPHILS # 0.2 10^3/ul (0.0-0.5); EOSINOPHILS % 4.5 % (0.0-7.0); HEMATOCRIT 34.2 % (37.0-47.0); HEMOGLOBIN 10.9 g/dl (12.0-16.0); LYMPHOCYTES # 2.1 10^3/ul (0.8-2.9); LYMPHOCYTES % 38.8 % (15.0-51.0); MEAN CORPUSCULAR HGB CONC 31.9 g/dl (32.0-37.0); MEAN PLATELET VOLUME 9.7 fl (7.4-10.4); MONOCYTE # 0.6 10^3/ul (0.3-0.9); NEUTROPHIL # 2.3 10^3/ul (1.6-7.5); NEUTROPHILS % 44.4 % (39.0-77.0); PLATELET COUNT 253 10^3/UL (140-415); RED BLOOD COUNT 3.76 10^6/ul (4.20-5.40); RED CELL DISTRIBUTION WIDTH 14.5 % (11.5-14.5); WHITE BLOOD COUNT 5.3 10^3/ul (4.8-10.8)
[2016-09-17 08:04] LABS: CALCIUM 8.9 mg/dl (8.4-10.2); CREATININE 0.89 mg/dl (0.44-1.00); MAGNESIUM 1.8 mg/dl (1.7-2.5); PHOSPHORUS 3.8 mg/dl (2.5-4.9); POTASSIUM 4.1 mmol/L (3.5-5.1)
[2016-09-17] MEDS: traMADol 50 MG TAB PO PRN ×3 (08:29→21:28)
[2016-09-17] MEDS: GABAPENTIN 300 MG CAP PO SCH ×2 (08:29→21:18)
[2016-09-17] MEDS: CARBAMIDE PEROXIDE 6.5% 15ML OTIC BOTH EARS SCH ×3 (09:00→21:18)
[2016-09-17] MEDS: FLUTICASONE 0.05% 16 GM NAS SPRAY NASAL SCH ×2 (09:00→13:05)
[2016-09-17] MEDS: HEPARIN 5,000 UNIT/0.5 ML VIAL SC SCH ×3 (09:00→21:26)
[2016-09-17] MEDS: TIOTROPIUM 18 MCG CAPSULE INHA DEV INH SCH ×2 (09:00→13:04)
[2016-09-17] MEDS: ATENOLOL 25 MG TAB PO SCH ×3 (09:00→21:20)
[2016-09-17] MEDS: SPIRONOLACTONE 25 MG TAB PO SCH ×2 (09:00→13:05)
[2016-09-17] MEDS: LUBIPROSTONE 24 MCG CAP PO SCH ×3 (09:00→21:18)
[2016-09-17] MEDS: ISOSORBIDE MONONITRATE(SR)60 MG TAB PO SCH ×2 (09:00→13:06)
[2016-09-17] MEDS ORDERED: REGADENOSON 0.4 MG/5 ML SYG ONE (09:58)
--- NOTE | 2016-09-17 12:54 | RADRPT ---
PROCEDURE: Nuclear medicine myocardial stress and rest scan. CLINICAL INDICATION: Chest pain. TECHNIQUE: The patient was stressed with 0.4 mg IV Lexiscan. 10.3 mCi technetium 99m Tetrofosmin (Myoview) was administered rest. 29.0 mCi technetium 99m Tetrofosmin (Myoview) was administered du ring stress. Images were obtained and reconstructed in the short axis, horizontal long axis, and ve rtical long axis. Gated images were obtained and ejection fraction was calculated. COMPARISON: No prior study is available for comparison. FINDINGS: The stress and rest images demonstrate normal uptake throughout. There is no fixed abnormality or r eversible abnormality. There is no evidence of transient ischemic dilatation. Wall motion is normal. There is normal wall thickening during systole. Ejection fraction at stress is 62%. IMPRESSION: 1. No evidence of stress induced myocardial ischemia. 2. Ejection fraction at stress is 62%. RPTAT: QQ .Josafat Monteiro MD, MD Date Time Electronically viewed and signed by .Josafat Monteiro MD, on 09/17/2016 12:54 .R/
--- NOTE | 2016-09-17 13:38 | PN ---
Date/Time of Note Date/Time of Note DATE: 09/17/16 TIME: 13:36 Assessment/Plan VTE Prophylaxis VTE Prophylaxis Intervention: SCD's Lines/Catheters IV Catheter Type (from [facility]): mary cath Urinary Cath still in place: No Assessment/Plan Chief Complaint/Hosp Course 1. Chest pain. Acute coronary syndrome ruled out. 2D echocardiogram showing preserved left ventricular ejection fraction. Nuclear medicine cardiac stress test negative for any reversible perfusion defects. 2. Pulmonary hypertension. Continue supplemental oxygen. Pending 2D echocardiogram. 3. COPD. Continue continue inhaled bronchodilators. Continue supplemental oxygen. No evidence of any exacerbation. 4. Hypokalemia. Resolved. 5. Prediabetes. Hemoglobin A1c 6.2. Random blood glucose stable. 6. Dyslipidemia. Continue statins. Fasting lipid panel suboptimal. 7. Essential hypertension. Continue antihypertensives. 8. Reported history of CAD. Continue statins. The patient is allergic to aspirin. 9. History of stroke. Continue statins. 10. History of rheumatoid arthritis. Monitor. 11. Fluids, electrolytes, and nutrition. Low-cholesterol diet. 12. DVT prophylaxis. Bilateral sequential compression devices. 13. Gastrointestinal prophylaxis. Proton pump inhibitors. 14. Plan. Continue current management. Await pulmonary evaluation. Case discussed with Dr. Walker. Problems: Subjective 24 Hr Interval Summary Free Text/Dictation Denies any chest pain. Exam/Review of Systems Vital Signs Vitals Vital Signs Date Time Temp Pulse Resp B/P Pulse Ox O2 Delivery O2 Flow Rate FiO2 09/17/16 12:22 82 09/17/16 12:07 97.7 20 121/78 93 09/17/16 08:30 Nasal Cannula 2.0 Intake and Output 09/16/16 09/16/16 09/17/16 15:00 23:00 07:00 Intake Total 750 ml 240 ml Output Total 700 ml Balance 750 ml -460 ml Exam General: Adequately build 65 year-old female lying in bed in no apparent distress. HEENT: Normocephalic, atraumatic. Eyes: Anicteric sclerae, conjunctivae clear. ENT: Nasal septum midline, oral mucosa moist. Neck supple, no JVD noticed. Respiratory: Bilaterally diminished breath sounds. Minimal use of accessory muscles of respiration. Cardiovascular: S1, S2 heard. No murmurs or gallops. Abdomen: Soft, nontender, and nondistended. Bowel sounds positive in all 4 quadrants. Genitourinary: Deferred. Extremities: No cyanosis, no edema. Clubbing of fingers. Peripheral pulses palpable. Neurologic: Cranial nerves II through XII grossly intact. The patient is awake, alert, and oriented. Skin: Normal skin turgor. No skin rashes. Results Result Diagram: 09/17/16 0641 09/17/16 0641 Results 24 hrs Laboratory Tests Test 09/17/16 06:41 White Blood Count 5.3 Red Blood Count 3.76 L Hemoglobin 10.9 L Hematocrit 34.2 L Mean Corpuscular Volume 91.0 Mean Corpuscular Hemoglobin 29.0 Mean Corpuscular Hemoglobin Concent 31.9 L Red Cell Distribution Width 14.5 Platelet Count 253 Mean Platelet Volume 9.7 Neutrophils % 44.4 Lymphocytes % 38.8 Monocytes % 11.0 Eosinophils % 4.5 Basophils % 0.4 Nucleated Red Blood Cells % 0.0 Neutrophils # 2.3 Lymphocytes # 2.1 Monocytes # 0.6 Eosinophils # 0.2 Basophils # 0.0 Nucleated Red Blood Cells # 0.0 Sodium Level 140 Potassium Level 4.1 Chloride Level 97 Carbon Dioxide Level 31 Anion Gap 16 Blood Urea Nitrogen 13 Creatinine 0.89 Glucose Level 97 Calcium Level 8.9 Phosphorus Level 3.8 Magnesium Level 1.8 Medications Medications Current Medications Ondansetron HCl (Zofran Inj) 4 mg Q6H PRN IV NAUSEA AND/OR VOMITING Last administered on 09/17/16 12:56; Admin Dose 4 MG; Start 09/15/16 at 18:00 Acetaminophen (Tylenol Tab) 650 mg Q6H PRN PO PAIN LEVEL 1-3 OR FEVER; Start at 18:00 Acetaminophen/ Hydrocodone Bitart ([place] (5/325)) 1 tab Q6H PRN PO MODERATE PAIN LEVEL 4-6 Last administered on 09/17/16 12:56; Admin Dose 1 TAB; Start 09/15 at 18:00 Morphine Sulfate (morphine) 2 mg Q4H PRN IV SEVERE PAIN LEVEL 7-10; Start at 18:00 Docusate Sodium (Colace) 100 mg Q12H PRN PO CONSTIPATION; Start 09/15/16 at 18: 00 Magnesium Hydroxide (Milk Of Mag) 30 ml DAILY PRN PO CONSTIPATION; Start at 18:00 Sodium Biphosphate/ Sodium Phosphate (Fleet Enema) 133 ml DAILY PRN [place] CONSTIPATION; Start 09/15/16 at 18:00 Heparin Sodium (Porcine) (Heparin (5000 Units/0.5 ml)) 5,000 unit Q12 SC Last administered on 09/17/16 13:12; Admin Dose 5,000 UNIT; Start 09/15/16 at 21:00 Lorazepam (Ativan) 0.5 mg Q6H PRN IV ANXIETY; Start 09/15/16 at 18:00 Nitroglycerin (Nitroglycerin (Sl Tab) 0.4 Mg) 1 tab Q5M PRN SL ANGINA; Start at 18:00 Albuterol (Ventolin Hfa) 2 puff Q6 INH Last administered on 09/17/16 12:55; Admin Dose 2 PUFF; Start 09/15/16 at 18:00 Atenolol (Tenormin) 25 mg BID PO Last administered on 09/17/16 13:04; Admin Dose 25 MG; Start 09/15/16 at 21:00 Atorvastatin Calcium (Lipitor) 40 mg QHS PO Last administered on 09/16/16 20:11 ; Admin Dose 40 MG; Start 09/15/16 at 21:00 Carbamide Peroxide (Debrox Otic) 10 drop BID BOTH EARS Last administered on 09/17 13:02; Admin Dose 10 DROP; Start 09/15/16 at 21:00 Diphenhydramine HCl (Benadryl) 50 mg Q8 PRN PO ITCHING Last administered on 09/17 04:11; Admin Dose 50 MG; Start 09/15/16 at 18:00 Furosemide (Lasix) 40 mg DAILY PO ; Start 09/16/16 at 09:00; Status Future Hold Gabapentin (Neurontin) 300 mg BID PO Last administered on 09/17/16 08:29; Admin Dose 300 MG; Start 09/15/16 at 21:00 Ibuprofen (Motrin) 800 mg Q4 PRN PO WSOB; Start 09/15/16 at 18:00 Isosorbide Mononitrate (Imdur) 60 mg DAILY PO Last administered on 09/17/16 13: 06; Admin Dose 60 MG; Start 09/16/16 at 09:00 Lubiprostone (Amitiza) 24 mcg BID PO Last administered on 09/17/16 13:03; Admin Dose 24 MCG; Start 09/15/16 at 21:00 Promethazine HCl (Phenergan) 25 mg Q6H PRN PO NAUSEA AND/OR VOMITING; Start 09/15/16 at 18:00 Spironolactone (Aldactone) 25 mg DAILY PO Last administered on 09/17/16 13:05; Admin Dose 25 MG; Start 09/16/16 at 09:00 Tramadol HCl (Ultram) 50 mg Q6H PRN PO PAIN Last administered on 09/17/16 08:29 ; Admin Dose 50 MG; Start 09/15/16 at 18:00 Pantoprazole (Protonix Tab) 40 mg DAILY@06 PO Last administered on 09/17/16 05: 18; Admin Dose 40 MG; Start 09/16/16 at 06:00 Tiotropium [place] (Spiriva) 1 inh DAILY INH Last administered on 09/17/16 13: 04; Admin Dose 1 INH; Start 09/17/16 at 09:00 Fluticasone Propionate (Flonase 0.05% Nasal) 2 spray DAILY NASAL Last administered on 09/17/16 13:05; Admin Dose 2 SPRAY; Start 09/16/16 at 09:00 Nystatin (Nystatin Susp) 5 ml Q6 PRN PO DRY MOUTH Last administered on 06:49; Admin Dose 5 ML; Start 09/16/16 at 23:00 JESSI VARGAS NP Sep 17, 2016 13:38
--- NOTE | 2016-09-17 14:21 | EN ---
Date/Time of Note Date/Time of Note DATE: 09/17/16 TIME: 14:19 Event Note Cardiology Cardiology Event Note Lexiscan cardiac nuclear perfusion report 09/17/2016 This is a 65-year-old female who presents with chest pain Baseline ECG sinus rhythm at 66 bpm, normal QRS, nonspecific STT wave abnormalities Baseline blood pressure 123/79 Lexiscan was administered as per protocol No symptos No significant STT wave abnormalities No arrhythmias Peak heart rate was 1 31 bpm, peak blood pressure was 123/79 Nonischemic ECG interpretation The nuclear portion will be interpreted by our radiology colleagues Erick Ibrahim DO Sep 17, 2016 14:21
--- NOTE | 2016-09-17 14:25 | CONS ---
Date/Time of Note Date/Time of Note DATE: 09/17/16 TIME: 14:23 Assessment/Plan Assessment/Plan Additional Assessment/Plan Chest pain, resolved Normal nuclear cardiac perfusion study 09/17/2016 Preserved ejection fraction Diastolic dysfunction Pulmonary disease -Patient with no further episodes of chest discomfort. Cardiac nuclear perfusion study was negative for any significant defects. Given atypical nature of symptoms and no further symptoms as well as negative nuclear perfusion study, no further inpatient cardiac workup needed at the current time. Consultation Date/Type/Reason Admit Date/Time Sep 15, 2016 at 15:43 Initial Consult Date 09/16/16 Type of Consultation: cv 24 HR Interval Summary Free Text/Dictation Denies any shortness of breath or further chest pain. Feeling better. Chest pain complaining of was sharp in nature Exam/Review of Systems Vital Signs Vitals Vital Signs Date Time Temp Pulse Resp B/P Pulse Ox O2 Delivery O2 Flow Rate FiO2 09/17/16 12:22 82 09/17/16 12:07 97.7 20 121/78 93 09/17/16 08:30 Nasal Cannula 2.0 Intake and Output 09/16/16 09/16/16 09/17/16 15:00 23:00 07:00 Intake Total 750 ml 240 ml Output Total 700 ml Balance 750 ml -460 ml Exam No apparent distress Constitutional: alert, oriented Head: normocephalic Neck: supple Respiratory: other (Coarse breath sounds bilaterally, no wheezing) Cardiovascular: other (S1-S2 heard), regular rate and rhythm Gastrointestinal: bowel sounds, non-tender, soft Extremities: edema Results Result Diagram: 09/17/16 0641 09/17/16 0641 Results 24 hrs Laboratory Tests Test 09/17/16 06:41 White Blood Count 5.3 Red Blood Count 3.76 L Hemoglobin 10.9 L Hematocrit 34.2 L Mean Corpuscular Volume 91.0 Mean Corpuscular Hemoglobin 29.0 Mean Corpuscular Hemoglobin Concent 31.9 L Red Cell Distribution Width 14.5 Platelet Count 253 Mean Platelet Volume 9.7 Neutrophils % 44.4 Lymphocytes % 38.8 Monocytes % 11.0 Eosinophils % 4.5 Basophils % 0.4 Nucleated Red Blood Cells % 0.0 Neutrophils # 2.3 Lymphocytes # 2.1 Monocytes # 0.6 Eosinophils # 0.2 Basophils # 0.0 Nucleated Red Blood Cells # 0.0 Sodium Level 140 Potassium Level 4.1 Chloride Level 97 Carbon Dioxide Level 31 Anion Gap 16 Blood Urea Nitrogen 13 Creatinine 0.89 Glucose Level 97 Calcium Level 8.9 Phosphorus Level 3.8 Magnesium Level 1.8 Medications Medications Current Medications Ondansetron HCl (Zofran Inj) 4 mg Q6H PRN IV NAUSEA AND/OR VOMITING Last administered on 09/17/16 12:56; Admin Dose 4 MG; Start 09/15/16 at 18:00 Acetaminophen (Tylenol Tab) 650 mg Q6H PRN PO PAIN LEVEL 1-3 OR FEVER; Start at 18:00 Acetaminophen/ Hydrocodone Bitart ([place] (5/325)) 1 tab Q6H PRN PO MODERATE PAIN LEVEL 4-6 Last administered on 09/17/16 12:56; Admin Dose 1 TAB; Start 09/15 at 18:00 Morphine Sulfate (morphine) 2 mg Q4H PRN IV SEVERE PAIN LEVEL 7-10; Start at 18:00 Docusate Sodium (Colace) 100 mg Q12H PRN PO CONSTIPATION; Start 09/15/16 at 18: 00 Magnesium Hydroxide (Milk Of Mag) 30 ml DAILY PRN PO CONSTIPATION; Start at 18:00 Sodium Biphosphate/ Sodium Phosphate (Fleet Enema) 133 ml DAILY PRN [place] CONSTIPATION; Start 09/15/16 at 18:00 Heparin Sodium (Porcine) (Heparin (5000 Units/0.5 ml)) 5,000 unit Q12 SC Last administered on 09/17/16 13:12; Admin Dose 5,000 UNIT; Start 09/15/16 at 21:00 Lorazepam (Ativan) 0.5 mg Q6H PRN IV ANXIETY; Start 09/15/16 at 18:00 Nitroglycerin (Nitroglycerin (Sl Tab) 0.4 Mg) 1 tab Q5M PRN SL ANGINA; Start at 18:00 Albuterol (Ventolin Hfa) 2 puff Q6 INH Last administered on 09/17/16 12:55; Admin Dose 2 PUFF; Start 09/15/16 at 18:00 Atenolol (Tenormin) 25 mg BID PO Last administered on 09/17/16 13:04; Admin Dose 25 MG; Start 09/15/16 at 21:00 Atorvastatin Calcium (Lipitor) 40 mg QHS PO Last administered on 09/16/16 20:11 ; Admin Dose 40 MG; Start 09/15/16 at 21:00 Carbamide Peroxide (Debrox Otic) 10 drop BID BOTH EARS Last administered on 09/17 13:02; Admin Dose 10 DROP; Start 09/15/16 at 21:00 Diphenhydramine HCl (Benadryl) 50 mg Q8 PRN PO ITCHING Last administered on 09/17 04:11; Admin Dose 50 MG; Start 09/15/16 at 18:00 Furosemide (Lasix) 40 mg DAILY PO ; Start 09/16/16 at 09:00; Status Future Hold Gabapentin (Neurontin) 300 mg BID PO Last administered on 09/17/16 08:29; Admin Dose 300 MG; Start 09/15/16 at 21:00 Ibuprofen (Motrin) 800 mg Q4 PRN PO WSOB; Start 09/15/16 at 18:00 Isosorbide Mononitrate (Imdur) 60 mg DAILY PO Last administered on 09/17/16 13: 06; Admin Dose 60 MG; Start 09/16/16 at 09:00 Lubiprostone (Amitiza) 24 mcg BID PO Last administered on 09/17/16 13:03; Admin Dose 24 MCG; Start 09/15/16 at 21:00 Promethazine HCl (Phenergan) 25 mg Q6H PRN PO NAUSEA AND/OR VOMITING; Start 09/15/16 at 18:00 Spironolactone (Aldactone) 25 mg DAILY PO Last administered on 09/17/16 13:05; Admin Dose 25 MG; Start 09/16/16 at 09:00 Tramadol HCl (Ultram) 50 mg Q6H PRN PO PAIN Last administered on 09/17/16 08:29 ; Admin Dose 50 MG; Start 09/15/16 at 18:00 Pantoprazole (Protonix Tab) 40 mg DAILY@06 PO Last administered on 09/17/16 05: 18; Admin Dose 40 MG; Start 09/16/16 at 06:00 Tiotropium [place] (Spiriva) 1 inh DAILY INH Last administered on 09/17/16 13: 04; Admin Dose 1 INH; Start 09/17/16 at 09:00 Fluticasone Propionate (Flonase 0.05% Nasal) 2 spray DAILY NASAL Last administered on 09/17/16 13:05; Admin Dose 2 SPRAY; Start 09/16/16 at 09:00 Nystatin (Nystatin Susp) 5 ml Q6 PRN PO DRY MOUTH Last administered on 06:49; Admin Dose 5 ML; Start 09/16/16 at 23:00 Erick Ibrahim DO Sep 17, 2016 14:25
[2016-09-17] MEDS ORDERED: LORAZEPAM 0.5 MG TAB PO PRN (15:30)
--- NOTE | 2016-09-17 15:34 | CONS ---
Date/Time of Note Date/Time of Note DATE: 09/17/16 TIME: 15:27 Assessment/Plan Assessment/Plan Additional Assessment/Plan Assessment 1. Chest pain rule out coronary artery disease. Patient underwent nuclear stress test today pending these results 2. History of pulmonary fibrosis patient confirmed from lung biopsy 3. History of COPD remote tobacco use. 4. Chronic hypoxemic respiratory failure secondary to above Plan 1. Await nuclear stress test results cardiac recommendations 2. Continue supplemental O2 3. Continue bronchodilators 4. Outpatient pulmonary function test and CT of the chest to evaluate lung parenchyma Disposition Stable for discharge once cleared by cardiology. Consultation Date/Type/Reason Admit Date/Time Sep 15, 2016 at 15:43 Date of Consultation: Sep 17, 2016 Type of Consultation: Pulmonary Reason for Consultation Shortness of breath Hx of Present Illness 65-year-old lady who presented to [facility] for evaluation of central chest pain. She describes her pain is central no radiation no nausea no vomiting no hemoptysis no hematemesis she did have mild associated shortness of breath but no diaphoresis. No prior history of coronary artery disease no history of stent placements no history of angina. She has a history of pulmonary fibrosis and COPD confirmed from lung biopsy performed at [facility], [place]. She was seen by pulmonary physician maintained on inhalers. Unclear whether she has a history of pulmonary hypertension however echocardiogram performed here shows mild to moderate pulmonary hypertension with mild tricuspid regurgitation. She has a preserved ejection fraction. She is on supplemental oxygen and has been so for the past 7 + years. She is an ex-smoker quit smoking 17 years ago has no history of inhalational injury. She has limited exertion secondary to her dyspnea. Negative other than that mentioned above Past Medical History Pulmonary hypertension COPD Chronic tobacco use Social History Alcohol Use: none Smoking Status: Former smoker (2 packs per day 35 years, quit 15 years ago) Drug Use: none Exam/Review of Systems Vital Signs Vitals Vital Signs Date Time Temp Pulse Resp B/P Pulse Ox O2 Delivery O2 Flow Rate FiO2 09/17/16 12:22 82 09/17/16 12:07 97.7 20 121/78 93 09/17/16 08:30 Nasal Cannula 2.0 Intake and Output 09/16/16 09/16/16 09/17/16 15:00 23:00 07:00 Intake Total 750 ml 240 ml Output Total 700 ml Balance 750 ml -460 ml Exam GENERAL: Elderly lady well-nourished well-developed comfortable at rest VITAL SIGNS: per chart NECK: Supple. No JVD or lymphadenopathy. CARDIAC EXAM: S1, S2. No added sounds or murmurs. CHEST: diminished air entry both lung bases few rales ABDOMEN: Soft, nontender. No guarding or rebound. EXTREMITIES: No cyanosis, clubbing or edema. NEUROLOGIC: Generalized weakness. No focal deficits. Results Result Diagram: 09/17/16 0641 09/17/16 0641 Results 24 hrs Laboratory Tests Test 09/17/16 06:41 White Blood Count 5.3 Red Blood Count 3.76 L Hemoglobin 10.9 L Hematocrit 34.2 L Mean Corpuscular Volume 91.0 Mean Corpuscular Hemoglobin 29.0 Mean Corpuscular Hemoglobin Concent 31.9 L Red Cell Distribution Width 14.5 Platelet Count 253 Mean Platelet Volume 9.7 Neutrophils % 44.4 Lymphocytes % 38.8 Monocytes % 11.0 Eosinophils % 4.5 Basophils % 0.4 Nucleated Red Blood Cells % 0.0 Neutrophils # 2.3 Lymphocytes # 2.1 Monocytes # 0.6 Eosinophils # 0.2 Basophils # 0.0 Nucleated Red Blood Cells # 0.0 Sodium Level 140 Potassium Level 4.1 Chloride Level 97 Carbon Dioxide Level 31 Anion Gap 16 Blood Urea Nitrogen 13 Creatinine 0.89 Glucose Level 97 Calcium Level 8.9 Phosphorus Level 3.8 Magnesium Level 1.8 Medications Medications Current Medications Ondansetron HCl (Zofran Inj) 4 mg Q6H PRN IV NAUSEA AND/OR VOMITING Last administered on 09/17/16 12:56; Admin Dose 4 MG; Start 09/15/16 at 18:00 Acetaminophen (Tylenol Tab) 650 mg Q6H PRN PO PAIN LEVEL 1-3 OR FEVER; Start at 18:00 Acetaminophen/ Hydrocodone Bitart ([place] (5/325)) 1 tab Q6H PRN PO MODERATE PAIN LEVEL 4-6 Last administered on 09/17/16 12:56; Admin Dose 1 TAB; Start 09/15 at 18:00 Morphine Sulfate (morphine) 2 mg Q4H PRN IV SEVERE PAIN LEVEL 7-10; Start at 18:00 Docusate Sodium (Colace) 100 mg Q12H PRN PO CONSTIPATION; Start 09/15/16 at 18: 00 Magnesium Hydroxide (Milk Of Mag) 30 ml DAILY PRN PO CONSTIPATION; Start at 18:00 Sodium Biphosphate/ Sodium Phosphate (Fleet Enema) 133 ml DAILY PRN [place] CONSTIPATION; Start 09/15/16 at 18:00 Heparin Sodium (Porcine) (Heparin (5000 Units/0.5 ml)) 5,000 unit Q12 SC Last administered on 09/17/16 13:12; Admin Dose 5,000 UNIT; Start 09/15/16 at 21:00 Nitroglycerin (Nitroglycerin (Sl Tab) 0.4 Mg) 1 tab Q5M PRN SL ANGINA; Start at 18:00 Albuterol (Ventolin Hfa) 2 puff Q6 INH Last administered on 09/17/16 12:55; Admin Dose 2 PUFF; Start 09/15/16 at 18:00 Atenolol (Tenormin) 25 mg BID PO Last administered on 09/17/16 13:04; Admin Dose 25 MG; Start 09/15/16 at 21:00 Atorvastatin Calcium (Lipitor) 40 mg QHS PO Last administered on 09/16/16 20:11 ; Admin Dose 40 MG; Start 09/15/16 at 21:00 Carbamide Peroxide (Debrox Otic) 10 drop BID BOTH EARS Last administered on 09/17 13:02; Admin Dose 10 DROP; Start 09/15/16 at 21:00 Diphenhydramine HCl (Benadryl) 50 mg Q8 PRN PO ITCHING Last administered on 09/17 04:11; Admin Dose 50 MG; Start 09/15/16 at 18:00 Furosemide (Lasix) 40 mg DAILY PO ; Start 09/16/16 at 09:00; Status Future Hold Gabapentin (Neurontin) 300 mg BID PO Last administered on 09/17/16 08:29; Admin Dose 300 MG; Start 09/15/16 at 21:00 Ibuprofen (Motrin) 800 mg Q4 PRN PO WSOB; Start 09/15/16 at 18:00 Isosorbide Mononitrate (Imdur) 60 mg DAILY PO Last administered on 09/17/16 13: 06; Admin Dose 60 MG; Start 09/16/16 at 09:00 Lubiprostone (Amitiza) 24 mcg BID PO Last administered on 09/17/16 13:03; Admin Dose 24 MCG; Start 09/15/16 at 21:00 Promethazine HCl (Phenergan) 25 mg Q6H PRN PO NAUSEA AND/OR VOMITING; Start 09/15/16 at 18:00 Spironolactone (Aldactone) 25 mg DAILY PO Last administered on 09/17/16 13:05; Admin Dose 25 MG; Start 09/16/16 at 09:00 Tramadol HCl (Ultram) 50 mg Q6H PRN PO PAIN Last administered on 09/17/16 08:29 ; Admin Dose 50 MG; Start 09/15/16 at 18:00 Pantoprazole (Protonix Tab) 40 mg DAILY@06 PO Last administered on 09/17/16 05: 18; Admin Dose 40 MG; Start 09/16/16 at 06:00 Tiotropium [place] (Spiriva) 1 inh DAILY INH Last administered on 09/17/16 13: 04; Admin Dose 1 INH; Start 09/17/16 at 09:00 Fluticasone Propionate (Flonase 0.05% Nasal) 2 spray DAILY NASAL Last administered on 09/17/16 13:05; Admin Dose 2 SPRAY; Start 09/16/16 at 09:00 Nystatin (Nystatin Susp) 5 ml Q6 PRN PO DRY MOUTH Last administered on 06:49; Admin Dose 5 ML; Start 09/16/16 at 23:00 Lorazepam (Ativan) 0.5 mg Q6H PRN PO ANXIETY; Start 09/17/16 at 15:30 CHELSEY CASILLAS MD, [facility] Sep 17, 2016 15:33
[2016-09-17] MEDS: ATORVASTATIN 40 MG TAB PO SCH (21:19)
[2016-09-18] VITALS (10 sets, daily range): BP systolic 94–130; BP diastolic 50–88; PULSE 69–87; RESP 14–21
[2016-09-18] MEDS: HYDROCODONE/APAP (5/325) TAB PO PRN ×3 (01:10→14:08)
[2016-09-18] MEDS: ALBUTEROL 18 GM INHALER INH SCH ×3 (01:10→12:00)
[2016-09-18] MEDS: ONDANSETRON 4 MG INJ IV PRN ×3 (01:10→14:11)
[2016-09-18] MEDS: NYSTATIN SUSP 5 ML CUP PO PRN (01:15)
[2016-09-18] MEDS: traMADol 50 MG TAB PO PRN ×2 (04:30→11:31)
[2016-09-18] MEDS: DIPHENHYDRAMINE 50 MG CAP PO PRN (06:47)
[2016-09-18] MEDS: PANTOPRAZOLE (EC) 40 MG TAB PO SCH (06:48)
[2016-09-18] MEDS: LUBIPROSTONE 24 MCG CAP PO SCH (09:15)
[2016-09-18] MEDS: GABAPENTIN 300 MG CAP PO SCH (09:15)
[2016-09-18] MEDS: SPIRONOLACTONE 25 MG TAB PO SCH (09:16)
[2016-09-18] MEDS: ISOSORBIDE MONONITRATE(SR)60 MG TAB PO SCH (09:16)
[2016-09-18] MEDS: ATENOLOL 25 MG TAB PO SCH (09:16)
[2016-09-18] MEDS: TIOTROPIUM 18 MCG CAPSULE INHA DEV INH SCH (09:18)
[2016-09-18] MEDS: FLUTICASONE 0.05% 16 GM NAS SPRAY NASAL SCH (09:19)
[2016-09-18 09:35] LABS: ADD SCAN DIFF NO
[2016-09-18] MEDS: HEPARIN 5,000 UNIT/0.5 ML VIAL SC SCH (09:35)
[2016-09-18] MEDS: CARBAMIDE PEROXIDE 6.5% 15ML OTIC BOTH EARS SCH (09:35)
[2016-09-18 09:58] LABS: CALCIUM 9.3 mg/dl (8.4-10.2); POTASSIUM 4.3 mmol/L (3.5-5.1)
[2016-09-18 10:45] LABS: BASOPHILS % 0.4 % (0.0-2.0); EOSINOPHILS # 0.2 10^3/ul (0.0-0.5); EOSINOPHILS % 3.1 % (0.0-7.0); HEMATOCRIT 35.5 % (37.0-47.0); HEMOGLOBIN 10.8 g/dl (12.0-16.0); LYMPHOCYTES # 2.4 10^3/ul (0.8-2.9); LYMPHOCYTES % 31.1 % (15.0-51.0); MEAN CORPUSCULAR HEMOGLOBIN 27.6 pg (29.0-33.0); MEAN CORPUSCULAR HGB CONC 30.4 g/dl (32.0-37.0); MEAN CORPUSCULAR VOLUME 90.6 fl (82.0-101.0); MEAN PLATELET VOLUME 9.8 fl (7.4-10.4); MONOCYTE # 0.7 10^3/ul (0.3-0.9); MONOCYTES % 8.5 % (0.0-11.0); NEUTROPHIL # 4.3 10^3/ul (1.6-7.5); NEUTROPHILS % 56.1 % (39.0-77.0); PLATELET COUNT 273 10^3/UL (140-415); RED BLOOD COUNT 3.92 10^6/ul (4.20-5.40); RED CELL DISTRIBUTION WIDTH 14.6 % (11.5-14.5); WHITE BLOOD COUNT 7.6 10^3/ul (4.8-10.8)
--- NOTE | 2016-09-18 12:16 | CONS ---
Date/Time of Note Date/Time of Note DATE: 09/18/16 TIME: 12:15 Assessment/Plan Assessment/Plan Additional Assessment/Plan Chest pain, resolved Normal nuclear cardiac perfusion study 09/17/2016 Preserved ejection fraction Diastolic dysfunction Pulmonary disease -Patient with no further episodes of chest discomfort. Cardiac nuclear perfusion study was negative for any significant defects. Given atypical nature of symptoms and no further symptoms as well as negative nuclear perfusion study, no further inpatient cardiac workup needed at the current time. Consultation Date/Type/Reason Admit Date/Time Sep 15, 2016 at 18:14 Initial Consult Date 09/16/16 Type of Consultation: cv 24 HR Interval Summary Free Text/Dictation Denies chest pain or shortness of breath currently. Exam/Review of Systems Vital Signs Vitals Vital Signs Date Time Temp Pulse Resp B/P Pulse Ox O2 Delivery O2 Flow Rate FiO2 09/18/16 12:12 98.4 71 14 130/88 93 09/18/16 08:30 Nasal Cannula 2.0 Intake and Output 09/17/16 09/17/16 09/18/16 15:00 23:00 07:00 Intake Total 1050 ml 850 ml Output Total 350 ml 1000 ml Balance 700 ml -150 ml Exam No apparent distress, no dyspnea with speaking Constitutional: alert, oriented Head: normocephalic Respiratory: other (Coarse breath sounds bilaterally, no wheezing) Cardiovascular: other (S1-S2 heard), regular rate and rhythm Gastrointestinal: bowel sounds, non-tender, soft Extremities: edema (Trace) Results Result Diagram: 09/18/16 0910 09/18/16 0910 Results 24 hrs Laboratory Tests Test 09/18/16 09:10 White Blood Count 7.6 # Red Blood Count 3.92 L Hemoglobin 10.8 L Hematocrit 35.5 L Mean Corpuscular Volume 90.6 Mean Corpuscular Hemoglobin 27.6 L Mean Corpuscular Hemoglobin Concent 30.4 L Red Cell Distribution Width 14.6 H Platelet Count 273 Mean Platelet Volume 9.8 Neutrophils % 56.1 Lymphocytes % 31.1 Monocytes % 8.5 Eosinophils % 3.1 Basophils % 0.4 Nucleated Red Blood Cells % 0.0 Neutrophils # 4.3 Lymphocytes # 2.4 Monocytes # 0.7 Eosinophils # 0.2 Basophils # 0.0 Nucleated Red Blood Cells # 0.0 Sodium Level 139 Potassium Level 4.3 Chloride Level 94 L Carbon Dioxide Level 34 H Anion Gap 15 Blood Urea Nitrogen 14 Creatinine 1.00 Glucose Level 104 Calcium Level 9.3 Medications Medications Current Medications Ondansetron HCl (Zofran Inj) 4 mg Q6H PRN IV NAUSEA AND/OR VOMITING Last administered on 09/18/16 06:49; Admin Dose 4 MG; Start 09/15/16 at 18:00 Acetaminophen (Tylenol Tab) 650 mg Q6H PRN PO PAIN LEVEL 1-3 OR FEVER; Start at 18:00 Acetaminophen/ Hydrocodone Bitart ([place] (5/325)) 1 tab Q6H PRN PO MODERATE PAIN LEVEL 4-6 Last administered on 09/18/16 06:47; Admin Dose 1 TAB; Start 09/15 at 18:00 Morphine Sulfate (morphine) 2 mg Q4H PRN IV SEVERE PAIN LEVEL 7-10; Start at 18:00 Docusate Sodium (Colace) 100 mg Q12H PRN PO CONSTIPATION; Start 09/15/16 at 18: 00 Magnesium Hydroxide (Milk Of Mag) 30 ml DAILY PRN PO CONSTIPATION Last administered on 09/17/16 15:36; Admin Dose 30 ML; Start 09/15/16 at 18:00 Sodium Biphosphate/ Sodium Phosphate (Fleet Enema) 133 ml DAILY PRN [place] CONSTIPATION Last administered on 09/17/16 21:21; Admin Dose 133 ML; Start at 18:00 Heparin Sodium (Porcine) (Heparin (5000 Units/0.5 ml)) 5,000 unit Q12 SC Last administered on 09/18/16 09:35; Admin Dose 5,000 UNIT; Start 09/15/16 at 21:00 Nitroglycerin (Nitroglycerin (Sl Tab) 0.4 Mg) 1 tab Q5M PRN SL ANGINA; Start at 18:00 Albuterol (Ventolin Hfa) 2 puff Q6 INH Last administered on 09/18/16 06:48; Admin Dose 2 PUFF; Start 09/15/16 at 18:00 Atenolol (Tenormin) 25 mg BID PO Last administered on 09/18/16 09:16; Admin Dose 25 MG; Start 09/15/16 at 21:00 Atorvastatin Calcium (Lipitor) 40 mg QHS PO Last administered on 09/17/16 21:19 ; Admin Dose 40 MG; Start 09/15/16 at 21:00 Carbamide Peroxide (Debrox Otic) 10 drop BID BOTH EARS Last administered on 09/18 09:35; Admin Dose 10 DROP; Start 09/15/16 at 21:00 Diphenhydramine HCl (Benadryl) 50 mg Q8 PRN PO ITCHING Last administered on 09/18 06:47; Admin Dose 50 MG; Start 09/15/16 at 18:00 Furosemide (Lasix) 40 mg DAILY PO ; Start 09/16/16 at 09:00; Status Future Hold Gabapentin (Neurontin) 300 mg BID PO Last administered on 09/18/16 09:15; Admin Dose 300 MG; Start 09/15/16 at 21:00 Ibuprofen (Motrin) 800 mg Q4 PRN PO WSOB; Start 09/15/16 at 18:00 Isosorbide Mononitrate (Imdur) 60 mg DAILY PO Last administered on 09/18/16 09: 16; Admin Dose 60 MG; Start 09/16/16 at 09:00 Lubiprostone (Amitiza) 24 mcg BID PO Last administered on 09/18/16 09:15; Admin Dose 24 MCG; Start 09/15/16 at 21:00 Promethazine HCl (Phenergan) 25 mg Q6H PRN PO NAUSEA AND/OR VOMITING; Start 09/15/16 at 18:00 Spironolactone (Aldactone) 25 mg DAILY PO Last administered on 09/18/16 09:16; Admin Dose 25 MG; Start 09/16/16 at 09:00 Tramadol HCl (Ultram) 50 mg Q6H PRN PO PAIN Last administered on 09/18/16 11:31 ; Admin Dose 50 MG; Start 09/15/16 at 18:00 Pantoprazole (Protonix Tab) 40 mg DAILY@06 PO Last administered on 09/18/16 06: 48; Admin Dose 40 MG; Start 09/16/16 at 06:00 Tiotropium [place] (Spiriva) 1 inh DAILY INH Last administered on 09/18/16 09: 18; Admin Dose 1 INH; Start 09/17/16 at 09:00 Fluticasone Propionate (Flonase 0.05% Nasal) 2 spray DAILY NASAL Last administered on 09/18/16 09:19; Admin Dose 2 SPRAY; Start 09/16/16 at 09:00 Nystatin (Nystatin Susp) 5 ml Q6 PRN PO DRY MOUTH Last administered on 01:15; Admin Dose 5 ML; Start 09/16/16 at 23:00 Lorazepam (Ativan) 0.5 mg Q6H PRN PO ANXIETY; Start 09/17/16 at 15:30 Erick Ibrahim DO Sep 18, 2016 12:16
--- NOTE | 2016-09-18 12:33 | CONS ---
Date/Time of Note Date/Time of Note DATE: 09/18/16 TIME: 12:31 Consult Date/Type/Reason Admit Date/Time Sep 15, 2016 at 18:14 Initial Consult Date 09/17/16 Type of Consultation: Pulmonary Subjective Patient comfortable this morning no new events denies any shortness of breath decreased chest pain. Objective Vital Signs Date Time Temp Pulse Resp B/P Pulse Ox O2 Delivery O2 Flow Rate FiO2 09/18/16 12:28 72 09/18/16 12:12 98.4 14 130/88 93 09/18/16 08:30 Nasal Cannula 2.0 Intake and Output 09/17/16 09/17/16 09/18/16 15:00 23:00 07:00 Intake Total 1050 ml 850 ml Output Total 350 ml 1000 ml Balance 700 ml -150 ml Exam GENERAL: VITAL SIGNS: per chart NECK: Supple. No JVD or lymphadenopathy. CARDIAC EXAM: S1, S2. No added sounds or murmurs. CHEST: clear bilaterally, No added sounds, rales or wheezes ABDOMEN: Soft, nontender. No guarding or rebound. EXTREMITIES: No cyanosis, clubbing or edema. NEUROLOGIC: Generalized weakness. No focal deficits. Results/Medications Result Diagram: 09/18/16 0910 09/18/16 0910 Results 24 hrs Laboratory Tests Test 09/18/16 09:10 White Blood Count 7.6 # Red Blood Count 3.92 L Hemoglobin 10.8 L Hematocrit 35.5 L Mean Corpuscular Volume 90.6 Mean Corpuscular Hemoglobin 27.6 L Mean Corpuscular Hemoglobin Concent 30.4 L Red Cell Distribution Width 14.6 H Platelet Count 273 Mean Platelet Volume 9.8 Neutrophils % 56.1 Lymphocytes % 31.1 Monocytes % 8.5 Eosinophils % 3.1 Basophils % 0.4 Nucleated Red Blood Cells % 0.0 Neutrophils # 4.3 Lymphocytes # 2.4 Monocytes # 0.7 Eosinophils # 0.2 Basophils # 0.0 Nucleated Red Blood Cells # 0.0 Sodium Level 139 Potassium Level 4.3 Chloride Level 94 L Carbon Dioxide Level 34 H Anion Gap 15 Blood Urea Nitrogen 14 Creatinine 1.00 Glucose Level 104 Calcium Level 9.3 Medications Current Medications Ondansetron HCl (Zofran Inj) 4 mg Q6H PRN IV NAUSEA AND/OR VOMITING Last administered on 09/18/16t 06:49; Admin Dose 4 MG; Start 09/15/16 at 18:00 Acetaminophen (Tylenol Tab) 650 mg Q6H PRN PO PAIN LEVEL 1-3 OR FEVER; Start at 18:00 Acetaminophen/ Hydrocodone Bitart ([place] (5/325)) 1 tab Q6H PRN PO MODERATE PAIN LEVEL 4-6 Last administered on 09/18/16 06:47; Admin Dose 1 TAB; Start 09/15 at 18:00 Morphine Sulfate (morphine) 2 mg Q4H PRN IV SEVERE PAIN LEVEL 7-10; Start at 18:00 Docusate Sodium (Colace) 100 mg Q12H PRN PO CONSTIPATION; Start 09/15/16 at 18: 00 Magnesium Hydroxide (Milk Of Mag) 30 ml DAILY PRN PO CONSTIPATION Last administered on 09/17/16 15:36; Admin Dose 30 ML; Start 09/15/16 at 18:00 Sodium Biphosphate/ Sodium Phosphate (Fleet Enema) 133 ml DAILY PRN [place] CONSTIPATION Last administered on 09/17/16 21:21; Admin Dose 133 ML; Start at 18:00 Heparin Sodium (Porcine) (Heparin (5000 Units/0.5 ml)) 5,000 unit Q12 SC Last administered on 09/18/16 09:35; Admin Dose 5,000 UNIT; Start 09/15/16 at 21:00 Nitroglycerin (Nitroglycerin (Sl Tab) 0.4 Mg) 1 tab Q5M PRN SL ANGINA; Start at 18:00 Albuterol (Ventolin Hfa) 2 puff Q6 INH Last administered on 09/18/16 06:48; Admin Dose 2 PUFF; Start 09/15/16 at 18:00 Atenolol (Tenormin) 25 mg BID PO Last administered on 09/18/16 09:16; Admin Dose 25 MG; Start 09/15/16 at 21:00 Atorvastatin Calcium (Lipitor) 40 mg QHS PO Last administered on 09/17/16 21:19 ; Admin Dose 40 MG; Start 09/15/16 at 21:00 Carbamide Peroxide (Debrox Otic) 10 drop BID BOTH EARS Last administered on 09/18 09:35; Admin Dose 10 DROP; Start 09/15/16 at 21:00 Diphenhydramine HCl (Benadryl) 50 mg Q8 PRN PO ITCHING Last administered on 09/18 06:47; Admin Dose 50 MG; Start 09/15/16 at 18:00 Furosemide (Lasix) 40 mg DAILY PO ; Start 09/16/16 at 09:00; Status Future Hold Gabapentin (Neurontin) 300 mg BID PO Last administered on 09/18/16 09:15; Admin Dose 300 MG; Start 09/15/16 at 21:00 Ibuprofen (Motrin) 800 mg Q4 PRN PO WSOB; Start 09/15/16 at 18:00 Isosorbide Mononitrate (Imdur) 60 mg DAILY PO Last administered on 09/18/16 09: 16; Admin Dose 60 MG; Start 09/16/16 at 09:00 Lubiprostone (Amitiza) 24 mcg BID PO Last administered on 09/18/16 09:15; Admin Dose 24 MCG; Start 09/15/16 at 21:00 Promethazine HCl (Phenergan) 25 mg Q6H PRN PO NAUSEA AND/OR VOMITING; Start 09/15/16 at 18:00 Spironolactone (Aldactone) 25 mg DAILY PO Last administered on 09/18/16 09:16; Admin Dose 25 MG; Start 09/16/16 at 09:00 Tramadol HCl (Ultram) 50 mg Q6H PRN PO PAIN Last administered on 09/18/16 11:31 ; Admin Dose 50 MG; Start 09/15/16 at 18:00 Pantoprazole (Protonix Tab) 40 mg DAILY@06 PO Last administered on 09/18/16 06: 48; Admin Dose 40 MG; Start 09/16/16 at 06:00 Tiotropium [place] (Spiriva) 1 inh DAILY INH Last administered on 09/18/16 09: 18; Admin Dose 1 INH; Start 09/17/16 at 09:00 Fluticasone Propionate (Flonase 0.05% Nasal) 2 spray DAILY NASAL Last administered on 09/18/16 09:19; Admin Dose 2 SPRAY; Start 09/16/16 at 09:00 Nystatin (Nystatin Susp) 5 ml Q6 PRN PO DRY MOUTH Last administered on 01:15; Admin Dose 5 ML; Start 09/16/16 at 23:00 Lorazepam (Ativan) 0.5 mg Q6H PRN PO ANXIETY; Start 09/17/16 at 15:30 Assessment/Plan Additional Assessment/Plan 1. Chest pain rule out coronary artery disease. Status post stress test 2. History of pulmonary fibrosis patient confirmed from lung biopsy 3. History of COPD remote tobacco use. 4. Chronic hypoxemic respiratory failure secondary to above Plan 1. Stress test results noted 2. Continue supplemental O2 3. Continue bronchodilators 4. Outpatient pulmonary function test and CT of the chest to evaluate lung parenchyma Follow-up with me as an outpatient. CHELSEY CASILLAS MD, [facility] Sep 18, 2016 12:32
--- NOTE | 2016-09-18 15:26 | PDOCDIS ---
Discharge Instructions CONDITION Patient Condition: Good HOME CARE INSTRUCTIONS: Diet Instructions: Reduced Calorie ACTIVITY: Activity Restrictions: No Restrictions FOLLOW UP/APPOINTMENTS Follow-up Plan F/U WITH YOUR PCP IN 1-[address] CASILLAS OF PULMONOLOGY BLAISE MALONE Sep 18, 2016 15:25
[2016-09-18] MEDS ORDERED: HEPARIN (100 UNITS/ML) 5 ML SYG CATHETER ONE (16:00)
--- NOTE | 2016-09-18 18:43 | DS ---
Date/Time of Note Date/Time of Note DATE: 09/18/16 TIME: 18:37 Discharge Summary Admission/Discharge Info Admit Date/Time Sep 15, 2016 at 18:14 Discharge Date/Time Sep 18, 2016 at 16:37 Discharge Diagnosis 1. Chest pain. Acute coronary syndrome ruled out. 2D echocardiogram showing preserved left ventricular ejection fraction. Nuclear medicine cardiac stress test negative for any reversible perfusion defects. 2. Pulmonary hypertension. Continue supplemental oxygen. Pending 2D echocardiogram. 3. COPD. Continue continue inhaled bronchodilators. Continue supplemental oxygen. No evidence of any exacerbation. 4. Hypokalemia. Resolved. 5. Prediabetes. Hemoglobin A1c 6.2. Random blood glucose stable. 6. Dyslipidemia. Continue statins. Fasting lipid panel suboptimal. 7. Essential hypertension. Continue antihypertensives. 8. Reported history of CAD. Continue statins. The patient is allergic to aspirin. 9. History of stroke. Continue statins. 10. History of rheumatoid arthritis. Monitor. Hospital Course Patient is a 65-year-old female with a history of coronary disease, stroke, pulmonary hypertension. Patient presents with chest pain, patient was evaluated by cardiology and a nuclear stress test was done which was negative. It is felt that patient's chest discomfort is from her underlying pulmonary fibrosis which was diagnosed via lung biopsy. Patient is felt to be stable for DC the plans for her to follow-up with pulmonology as an outpatient. 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 On the day of discharge patient's vitals, labs and physical exam are stable, patient has no further acute complaints and questions answered. Home Meds Reported Medications Tramadol Hcl* (Ultram*) 50 Mg Tablet, 50 MG PO Q6H Y for PAIN, TAB 09/15/16 Carbamide Peroxide* (Debrox*) 6.5% - 15 Ml Drops, 10 DROP BOTH EARS BID, BOTTLE 09/15/16 Atorvastatin* (Atorvastatin*) 40 Mg Tablet, 40 MG PO QHS, #30 TAB 09/15/16 Promethazine Hcl* (Phenergan*) 25 Mg Tablet, 25 MG PO Q6H Y for NAUSEA AND/OR VOMITING, TAB 09/15/16 Ibuprofen* (Ibuprofen*) 800 Mg Tablet, 800 MG PO Q4 Y for WHEEZING AND SOB, TAB 09/15/16 Mometasone Furoate* (Nasonex*) 50 Mcg/[place] - 17 Gm [place].pump, 2 SPRAY NASAL DAILY, #1 BOTTLE TO EACH NOSTRIL 09/15/16 Albuterol Sulfate* (Ventolin HFA*) 18 Gm Hfa.aer.ad, 2 PUFF INHALATION Q6H, #1 INHALER 09/15/16 Aclidinium [place] (Tudorza Pressair) 400 Mcg Aer.pow.ba, 400 MCG IH BID, EA 09/15/16 Albuterol Sulfate* (Albuterol Sulfate* Neb) 0.083%-3 Ml Neb, 2.5 MG NEB Q3H Y for WHEEZING AND SOB, #30 VIAL 09/15/16 Diphenhydramine Hcl* (Benadryl*) 50 Mg Cap, 50 MG PO Q8 Y for ITCHING, CAP 09/15/16 Esomeprazole Mag Trihydrate (Nexium) 40 Mg Capsule.dr, 40 MG PO DAILY, #30 CAP 09/15/16 Lubiprostone* (Amitiza*) 24 Mcg Capsule, 24 MCG PO BID, #60 CAP 09/15/16 Hydrocodone/Acetaminophen ([place] 10-325 Tablet) 1 Each Tablet, 1 EACH PO Q6 Y for SEVERE PAIN LEVEL 7-10, TAB 09/15/16 Aspirin* (Aspirin* EC) 81 Mg Tablet.dr, 81 MG PO DAILY, TAB 09/15/16 Gabapentin* (Neurontin*) 300 Mg Capsule, 300 MG PO BID, #60 CAP 09/15/16 Baclofen* (Baclofen*) 10 Mg Tablet, 10-20 MG PO BID, TAB 09/15/16 Spironolactone* (Aldactone*) 25 Mg Tablet, 25 MG PO DAILY, #30 TAB 09/15/16 Furosemide* (Furosemide*) 40 Mg Tablet, 40 MG PO DAILY, TAB 09/15/16 Isosorbide Mononitrate* (Isosorbide Mononitrate*) 60 Mg Tab.er.24h, 60 MG PO DAILY, TAB 09/15/16 Atenolol* (Atenolol*) 25 Mg Tablet, 25 MG PO BID, #60 TAB 09/15/16 Follow-up Plan Follow up PCP in 1-2 weeks as well as with pulmonary Primary Care Provider Lashawn Rios Time spent on discharge: > 30 minutes Pending Labs Laboratory Tests Test 09/18/16 09:10 White Blood Count 7.610^3/ul (4.8-10.8) Red Blood Count 3.9210^6/ul (4.20-5.40) Hemoglobin 10.8g/dl (12.0-16.0) Hematocrit 35.5% (37.0-47.0) Mean Corpuscular Volume 90.6fl (82.0-101.0) Mean Corpuscular Hemoglobin 27.6pg (29.0-33.0) Mean Corpuscular Hemoglobin Concent 30.4g/dl (32.0-37.0) Red Cell Distribution Width 14.6% (11.5-14.5) Platelet Count 10459^3/UL (140-415) Mean Platelet Volume 9.8fl (7.4-10.4) Neutrophils % 56.1% (39.0-77.0) Lymphocytes % 31.1% (15.0-51.0) Monocytes % 8.5% (0.0-11.0) Eosinophils % 3.1% (0.0-7.0) Basophils % 0.4% (0.0-2.0) Nucleated Red Blood Cells % 0.0/100WBC (0.0-0.0) Neutrophils # 4.310^3/ul (1.6-7.5) Lymphocytes # 2.410^3/ul (0.8-2.9) Monocytes # 0.710^3/ul (0.3-0.9) Eosinophils # 0.210^3/ul (0.0-0.5) Basophils # 0.010^3/ul (0.0-0.1) Nucleated Red Blood Cells # 0.010^3/ul (0.0-0.0) Sodium Level 139mmol/L (135-144) Potassium Level 4.3mmol/L (3.5-5.1) Chloride Level 94mmol/L (97-110) Carbon Dioxide Level 34mmol/L (21-31) Anion Gap 15 (8-16) Blood Urea Nitrogen 14mg/dl (7-20) Creatinine 1.00mg/dl (0.44-1.00) Glucose Level 104mg/dl (70-220) Calcium Level 9.3mg/dl (8.4-10.2) FAISAL,BORNA Sep 18, 2016 18:42
== END 2016-09-18 16:37 | disposition home health service (06) | DRG 197 ==
LOC: E/R 13:21 → MS4 15:43 → OBSVTOIN 18:14
PROVIDERS: ADMIT Internal Medicine; ATTEND Internal Medicine
DX: J84.10 Pulmonary fibrosis, unspecified (principal); J96.10 Chronic respiratory failure, unspecified whether with hypoxia or hypercapnia; I27.2 Other secondary pulmonary hypertension; I11.0 Hypertensive heart disease with heart failure; I50.30 Unspecified diastolic (congestive) heart failure; I25.10 Atherosclerotic heart disease of native coronary artery without angina pectoris; I34.1 Nonrheumatic mitral (valve) prolapse; E87.6 Hypokalemia; J44.9 Chronic obstructive pulmonary disease, unspecified; M06.9 Rheumatoid arthritis, unspecified; I25.2 Old myocardial infarction; E78.5 Hyperlipidemia, unspecified; R73.03 Prediabetes; Z79.82 Long term (current) use of aspirin; Z86.73 Personal history of transient ischemic attack (TIA), and cerebral infarction without residual deficits; Z87.891 Personal history of nicotine dependence
CPT/HCPCS: 36415; 71010; 78452; 80048; 80061; 82550; 82553; 83036; 83735; 83880; 84100; 84439; 84443; 84484; 85025; 85610; 85730; 93005; 93017; 93306; 94664; 96374; G0378; A9500; A9505; J1642; J1644; J2270; J2405; J2785

== ENCOUNTER 2016-10-30 04:03 | Inpatient (IN) | payer MEDICARE, OTHER ==
[~2016-10-30] VITALS: Ht 167.6 cm; Wt 74.7 kg
[2016-10-30] VITALS (9 sets, daily range): BP systolic 96–116; BP diastolic 54–71; PULSE 90–106; RESP 16–20; TEMP 100.8; Ht 167.6 cm; Wt 74.7 kg
[~2016-10-30 04:03] MED LIST: ACLI400A2 IH; ALBU18HF INHALATION; ALBU2.5V3 NEB; ASPI-664 PO; ATEN-51 PO; ATOR40TA68 PO; BACL10TA PO; BEN50 PO; CARB15DR50 BOTH EARS; ESOM40CA PO; FURO40TA4 PO; GABA300C PO; HYDR-902 PO; IBUP800T25 PO; ISOS60TA PO; LUBI24CA7 PO; NASO17 NASAL; PROM25TA14 PO; SPIR25TA PO; TRAM-40 PO
--- NOTE | 2016-10-30 04:05 | ERA ---
ER Documentation Chief Complaint Date/Time DATE: 10/30/16 TIME: 04:04 Chief Complaint Chest pain HPI The patient is a 65-year-old female, presenting with substernal chest pain that began about 3 AM that woke her up. She has similar symptoms previously, she denies chest pain with exertion or vomiting or diaphoresis or radiation. She denies fever, chills, neck pain, abdominal pain, vomiting, dysuria, diarrhea. She was discharged recently from another hospital. She does not smoke nor drink , use 2-3 L nasal cannula as needed She was treated by EMS with aspirin 162 mg p.o. and 2 nitroglycerin spray with good response Past medical history: Pulmonary fibrosis, COPD, CHF, mitral valve prolapse, CAD , pulmonary hypertension, history of CVA, dyslipidemia Past surgical history: Cholecystectomy, hysterectomy, Port-A-Cath ROS All systems reviewed and are negative except as per history of present illness. Medications Home Meds Reported Medications Tramadol Hcl* (Ultram*) 50 Mg Tablet, 50 MG PO Q6H Y for PAIN, TAB 09/15/16 Carbamide Peroxide* (Debrox*) 6.5% - 15 Ml Drops, 10 DROP BOTH EARS BID, BOTTLE 09/15/16 Atorvastatin* (Atorvastatin*) 40 Mg Tablet, 40 MG PO QHS, #30 TAB 09/15/16 Promethazine Hcl* (Phenergan*) 25 Mg Tablet, 25 MG PO Q6H Y for NAUSEA AND/OR VOMITING, TAB 09/15/16 Ibuprofen* (Ibuprofen*) 800 Mg Tablet, 800 MG PO Q4 Y for WHEEZING AND SOB, TAB 09/15/16 Mometasone Furoate* (Nasonex*) 50 Mcg/[place] - 17 Gm [place].pump, 2 SPRAY NASAL DAILY, #1 BOTTLE TO EACH NOSTRIL 09/15/16 Albuterol Sulfate* (Ventolin HFA*) 18 Gm Hfa.aer.ad, 2 PUFF INHALATION Q6H, #1 INHALER 09/15/16 Aclidinium [place] (Tudorza Pressair) 400 Mcg Aer.pow.ba, 400 MCG IH BID, EA 09/15/16 Albuterol Sulfate* (Albuterol Sulfate* Neb) 0.083%-3 Ml Neb, 2.5 MG NEB Q3H Y for WHEEZING AND SOB, #30 VIAL 7/3/17 Diphenhydramine Hcl* (Benadryl*) 50 Mg Cap, 50 MG PO Q8 Y for ITCHING, CAP 09/15/16 Esomeprazole Mag Trihydrate (Nexium) 40 Mg Capsule.dr, 40 MG PO DAILY, #30 CAP 09/15/16 Lubiprostone* (Amitiza*) 24 Mcg Capsule, 24 MCG PO BID, #60 CAP 09/15/16 Hydrocodone/Acetaminophen ([place] 10-325 Tablet) 1 Each Tablet, 1 EACH PO Q6 Y for SEVERE PAIN LEVEL 7-10, TAB 09/15/16 Aspirin* (Aspirin* EC) 81 Mg Tablet.dr, 81 MG PO DAILY, TAB 09/15/16 Gabapentin* (Neurontin*) 300 Mg Capsule, 300 MG PO BID, #60 CAP 09/15/16 Baclofen* (Baclofen*) 10 Mg Tablet, 10-20 MG PO BID, TAB 09/15/16 Spironolactone* (Aldactone*) 25 Mg Tablet, 25 MG PO DAILY, #30 TAB 09/15/16 Furosemide* (Furosemide*) 40 Mg Tablet, 40 MG PO DAILY, TAB 09/15/16 Isosorbide Mononitrate* (Isosorbide Mononitrate*) 60 Mg Tab.er.24h, 60 MG PO DAILY, TAB 09/15/16 Atenolol* (Atenolol*) 25 Mg Tablet, 25 MG PO BID, #60 TAB 09/15/16 Allergies Allergies: Coded Allergies: adalimumab (Unverified Allergy, Severe, CHEST FLUID RETENTION, 10/30/16) PER PT "HUMIRA GIVES ME PNEUMONIA" azithromycin (Unverified Allergy, Severe, HEART CONDITION, 10/30/16) methotrexate (Unverified Allergy, Severe, LOW WBC, 10/30/16) PER PT "IT LOWER MY WHITE BLOOD CELL COUNT". rofecoxib (Unverified Allergy, Severe, RASH, 10/30/16) aspirin (Verified Adverse Reaction, Unknown, STOMACH PAIN, 10/30/16) celecoxib (Verified Adverse Reaction, Unknown, STOMACH PAIN, 10/30/16) codeine (Verified Adverse Reaction, Unknown, STOMACH PAIN, 10/30/16) PMhx/Soc History of Surgery: Yes (GALLBLADDER,YSTERECTOMY,RT LUNG BIOPSY,APPEDIX,) Anesthesia Reaction: No Hx Neurological Disorder: No Hx Respiratory Disorders: Yes (PULM FIBROSIS,COPD) Hx Cardiac Disorders: Yes (CHF,MV PROLAPSE,ARRYTHMIA) Hx Psychiatric Problems: No Hx Miscellaneous Medical Probl: Yes (CAD, pulm HTN, pulm. fibrosis, CHF, CVA, MAXIME, ME) Hx Alcohol Use: No Hx Substance Use: No Hx Tobacco Use: No Physical Exam Vitals Vital Signs Date Time Temp Pulse Resp B/P Pulse Ox O2 Delivery O2 Flow Rate FiO2 10/30/16 04:11 100.8 120 18 113/69 96 10/30/16 04:03 121 18 113/69 96 Room Air 10/30/16 04:03 Nasal Cannula 3 Physical Exam Const: No acute distress. Head: Atraumatic. Eyes: Normal Conjunctiva. ENT: Normal External Ears, Nose and Mouth. Neck: Full range of motion. No meningismus. Resp: Clear to auscultation bilaterally. Cardio: Regular tachycardic Abd: Soft, non distended, normal bowel sounds, non tender. Skin: No petechiae or rashes. Back: No midline or flank tenderness. Ext: No cyanosis, or edema. Neur: Awake and alert. No focal deficit Psych: Normal Mood and Affect. Result Diagram: 10/30/16 0415 10/30/16 0415 Results 24 hrs Laboratory Tests Test 10/30/16 04:15 White Blood Count 7.810^3/ul Red Blood Count 4.2410^6/ul Hemoglobin 12.1g/dl Hematocrit 36.7% Mean Corpuscular Volume 86.6fl Mean Corpuscular Hemoglobin 28.5pg Mean Corpuscular Hemoglobin Concent 33.0g/dl Red Cell Distribution Width 15.2% Platelet Count 87895^3/UL Mean Platelet Volume 9.0fl Neutrophils % 68.8% Lymphocytes % 21.2% Monocytes % 6.8% Eosinophils % 2.3% Basophils % 0.3% Nucleated Red Blood Cells % 0.0/100WBC Neutrophils # (Manual) 5.410^3/ul Lymphocytes # 1.710^3/ul Monocytes # 0.510^3/ul Eosinophils # 0.210^3/ul Basophils # 0.010^3/ul Nucleated Red Blood Cells # 0.010^3/ul Prothrombin Time 13.0Sec Prothrombin Time Ratio 1.0 INR International Normalized Ratio 0.98 Activated Partial Thromboplast Time 27.5Sec D-Dimer 833.63ng/ml D-Dimer Comment Sodium Level 136mmol/L Potassium Level 3.9mmol/L Chloride Level 99mmol/L Carbon Dioxide Level 26mmol/L Anion Gap 15 Blood Urea Nitrogen 14mg/dl Creatinine 0.89mg/dl Glucose Level 118mg/dl Calcium Level 9.3mg/dl Troponin I < 0.012ng/ml Procedures/MDM EKG: Read by emergency physician Rate/Rhythm: Sinus tachycardia 120 beats/min QRS, ST, T-waves: No ST elevation, no T inversion, nonspecific ST abnormality Impression: Abnormal EKG Radiologist reading of portable chest x-ray reading is pending CT angiogram of the chest to rule out pulmonary embolism is pending MEDICAL MAKING DECISION: The patient is 65-year-old female, presenting with acute chest pain that is concerning for ACS. The differential diagnoses considered include but are not limited to acute coronary syndrome, acute myocardial infarction, pericarditis, pulmonary embolism , aortic dissection, pneumonia, pleural effusion, pneumothorax, GERD, chest wall pain. Departure Diagnosis: Primary Impression: Chest pain Condition: Stable Comments I discussed the findings with the patient. I discussed the patient with the on- call hospitalist Dr. Ramsey at 5:15 AM who was made aware of the lab, the treatment, the patient condition and the pending CT angiogram of the chest. The patient is admitted to telemetry KENYATTA DELCID MD Oct 30, 2016 04:05
[2016-10-30 04:42] LABS: BASOPHILS % 0.3 % (0.0-2.0); EOSINOPHILS # 0.2 10^3/ul (0.0-0.5); EOSINOPHILS % 2.3 % (0.0-7.0); HEMATOCRIT 36.7 % (37.0-47.0); HEMOGLOBIN 12.1 g/dl (12.0-16.0); LYMPHOCYTES # 1.7 10^3/ul (0.8-2.9); LYMPHOCYTES % 21.2 % (15.0-51.0); MEAN CORPUSCULAR HEMOGLOBIN 28.5 pg (29.0-33.0); MEAN CORPUSCULAR VOLUME 86.6 fl (82.0-101.0); MONOCYTE # 0.5 10^3/ul (0.3-0.9); MONOCYTES % 6.8 % (0.0-11.0); NEUTROPHILS % 68.8 % (39.0-77.0); PLATELET COUNT 273 10^3/UL (140-415); RED BLOOD COUNT 4.24 10^6/ul (4.20-5.40); RED CELL DISTRIBUTION WIDTH 15.2 % (11.5-14.5); WHITE BLOOD COUNT 7.8 10^3/ul (4.8-10.8)
[2016-10-30 05:03] LABS: INR 0.98; PARTIAL THROMBOPLASTIN TIME 27.5 Sec (25.0-35.0)
[2016-10-30 05:05] LABS: ANION GAP 15 (8-16); BLOOD UREA NITROGEN 14 mg/dl (7-20); CALCIUM 9.3 mg/dl (8.4-10.2); CARBON DIOXIDE 26 mmol/L (21-31); CHLORIDE 99 mmol/L (97-110); CREATININE 0.89 mg/dl (0.44-1.00); GLUCOSE 118 mg/dl (70-220); POTASSIUM 3.9 mmol/L (3.5-5.1); SODIUM 136 mmol/L (135-144)
[2016-10-30 05:06] LABS: D-DIMER 833.63 ng/ml (<460)
[2016-10-30 05:17] LABS: TROPONIN-I < 0.012 ng/ml (0.00-0.12)
[2016-10-30] MEDS ORDERED: IOHEXOL 100 ML ONE ×2 (05:22→16:39)
[2016-10-30] MEDS ORDERED: SOD CHLORIDE 0.9% 100 ML ONE ×2 (05:22→16:39)
[2016-10-30 05:23] LABS: CK-MB 0.44 ng/ml (0.0-2.4); CREATINE KINASE 126 IU/L (23-200); TROPONIN-I < 0.012 ng/ml (0.00-0.12)
[2016-10-30] MEDS ORDERED: LIDOCAINE 1% (MPF) 5 ML VIAL SC ONE (06:30)
--- NOTE | 2016-10-30 07:02 | HP ---
Date/Time of Note Date/Time of Note DATE: 10/30/16 TIME: 06:50 Assessment/Plan VTE Prophylaxis VTE Prophylaxis Intervention: heparin Lines/Catheters IV Catheter Type (from [facility]): Central Line Central line still needed: Yes Assessment/Plan Assessment/Plan 1. Chest pain. -Continue telemetry monitoring and rule out ACS given history of CAD -Patient was actually admitted here about 2 weeks ago for chest pain and at that time acute coronary syndrome was ruled out. 2D echocardiogram showing preserved left ventricular ejection fraction. Nuclear medicine cardiac stress test was negative for any reversible perfusion defects. 2. Sepsis as evidenced by fever and tachycardia, likely secondary to URI -will order chest x-ray, urinalysis with urine culture and blood culture 3. COPD and pulmonary fibrosis. Patient on 2 or 3 L of oxygen at home - continue inhaled bronchodilators and supplemental oxygen. Will provide as needed steroid. 4. History of CAD. Continue statin. Patient is allergic to aspirin. I will start her on Plavix, especially given history of CVA as well 5. Prediabetes. Recent A1c 6.2. Diet and exercise advised 6. Dyslipidemia. Continue statin 7. Hypertension: Blood pressure was at goal -Continue antihypertensives with adjustment as needed 8. History of CVA: Continue statin -Patient is allergic to aspirin. I will start her on Plavix especially given history of CAD as well HPI/ROS Admit Date/Time Admit Date/Time Hx of Present Illness This is a 65-year-old female with a history of COPD, pulmonary fibrosis, CHF, mitral valve prolapse, CAD, pulmonary hypertension, CVA, dyslipidemia who presented to the emergency department complaining of chest pain and dry cough. Chest pain started a few hours prior to arrival. It is substernal with no radiation. No associated nausea vomiting or diaphoresis. She stated that she was just discharged from an outside hospital 2 days ago. Patient however he cannot remember why she was admitted there to begin with, but stated that she was complaining of cough even at the time of discharge. Patient reports chronic shortness of breath. She is on 2 or 3 L of oxygen at home. Patient was actually admitted here less than 2 weeks ago for chest pain. At that time she was seen by cardiology and underwent a nuclear stress test which was negative for ischemia. A 2D echo showed When she presented to the ER this time, she was febrile with a temperature of 100.8, tachycardic with a heart rate of 121. Blood pressure is okay and CBC and CMP are within normal limits. PMH/Family/Social Past Medical History COPD, pulmonary fibrosis, CHF, mitral valve prolapse, CAD, pulmonary hypertension, CVA, dyslipidemia Past Surgical History Cholecystectomy, hysterectomy, Port-A-Cath Social History Alcohol Use: none Smoking Status: Never smoker Drug Use: none Exam/Review of Systems Vital Signs Vitals Vital Signs Date Time Temp Pulse Resp B/P Pulse Ox O2 Delivery O2 Flow Rate FiO2 10/30/16 05:56 100.8 108 18 112/74 100 Nasal Cannula 3.0 Exam Constitutional: alert, oriented, well developed Head: atraumatic, normocephalic Eyes: EOMI, PERRL Respiratory: clear to auscultation, normal air movement Cardiovascular: nl pulses, regular rate and rhythm Gastrointestinal: non-tender, soft Extremities: normal pulses Labs Result Diagram: 10/30/16 0415 10/30/16 0415 CLARE CARRERA MD Oct 30, 2016 07:01
[2016-10-30] MEDS ORDERED: NACL 0.9% 3 ML SYG IV SCH (07:30)
[2016-10-30] MEDS ORDERED: ACETAMINOPHEN 325 MG TAB PO PRN (07:30)
[2016-10-30] MEDS ORDERED: DIPHENHYDRAMINE 50 MG CAP PO PRN (07:30)
[2016-10-30] MEDS ORDERED: ALBUTEROL 0.083% (NEB) 2.5 MG/3 ML AMP NEB PRN (07:30)
[2016-10-30] MEDS: LEVOFLOXACIN 500MG/D5W (PMX) 100 ML IVPB SCH (08:44)
[2016-10-30] MEDS: ISOSORBIDE MONONITRATE(SR)60 MG TAB PO SCH (08:45)
[2016-10-30] MEDS: FUROSEMIDE 40 MG TAB PO SCH (08:45)
[2016-10-30] MEDS: SPIRONOLACTONE 25 MG TAB PO SCH (08:45)
[2016-10-30] MEDS: GABAPENTIN 300 MG CAP PO SCH ×2 (08:46→21:21)
[2016-10-30] MEDS: ATENOLOL 25 MG TAB PO SCH ×2 (08:47→21:00)
[2016-10-30] MEDS: CARBAMIDE PEROXIDE 6.5% 15ML OTIC BOTH EARS SCH ×2 (08:48→21:21)
[2016-10-30] MEDS: CLOPIDOGREL 75 MG TAB PO SCH (08:48)
[2016-10-30] MEDS: HYDROCODONE/APAP (10/325) TAB PO PRN ×2 (08:54→16:35)
[2016-10-30] MEDS: ONDANSETRON 4 MG INJ IV PRN (08:54)
[2016-10-30] MEDS: HEPARIN 5,000 UNIT/0.5 ML VIAL SC SCH ×2 (08:55→21:23)
[2016-10-30] MEDS ORDERED: PROVENTIL HFA 6.7GM INHALER INH SCH (09:00)
[2016-10-30] MEDS: ALBUTEROL HFA 8 GM INHALER INH SCH ×3 (09:00→20:00)
[2016-10-30] MEDS: ALBUTEROL/IPRATROPIUM (NEB) 3 ML AMP HHN PRN (09:09)
[2016-10-30] MEDS: LUBIPROSTONE 24 MCG CAP PO SCH ×2 (10:09→21:21)
[2016-10-30] MEDS: FLUTICASONE 0.05% 16 GM NAS SPRAY NASAL SCH (10:09)
[2016-10-30] MEDS: BACLOFEN 10 MG TAB PO SCH ×2 (10:10→21:21)
[2016-10-30 10:33] LABS: CREATINE KINASE 129 IU/L (23-200)
[2016-10-30 10:46] LABS: CK-MB 0.33 ng/ml (0.0-2.4)
[2016-10-30 10:48] LABS: TROPONIN-I < 0.012 ng/ml (0.00-0.12)
--- NOTE | 2016-10-30 10:58 | RADRPT ---
PROCEDURE: XR Chest. CLINICAL INDICATION: Chest pain. TECHNIQUE: AP Portable chest. COMPARISON: 09/15/2016 FINDINGS: The right port catheter is in satisfactory position. The cardiomediastinal silhouette is normal.The aortic arch is calcified. No focal consolidation, ple ural effusion or pneumothorax is seen. There is mild basilar atelectasis. The osseous structures ar e intact. IMPRESSION: No radiographic evidence of acute cardiopulmonary disease. Physician Jamee Date Time Electronically viewed and signed by Carmita Elias Physician on 10/30/2016 08:24 CS/
[2016-10-30 15:38] LABS: CREATINE KINASE 118 IU/L (23-200)
[2016-10-30 15:51] LABS: CK-MB 0.27 ng/ml (0.0-2.4)
[2016-10-30 16:02] LABS: TROPONIN-I < 0.012 ng/ml (0.00-0.12)
[2016-10-30] MEDS: PROMETHAZINE 25 MG TAB PO PRN (16:35)
[2016-10-30] MEDS ORDERED: IOHEXOL 350MG/ML 50 ML BTL ONE (16:39)
--- NOTE | 2016-10-30 18:19 | RADRPT ---
PROCEDURE: CTA Chest and pulmonary angiogram. CLINICAL INDICATION: Chest pain and shortness of breath. History of pulmonary fibrosis. TECHNIQUE: CT scan of the chest and CT pulmonary angiogram was performed on a multidetector high-r esolution CT scanner. High-resolution thin slice coronal and sagittal imaging was obtained from the axial source images. 3-D volumetric rendered post processing was performed as well. The patient w as examined following the uncomplicated intravenous administration of 85 cc of Omnipaque 350 IV cont rast. The images were reviewed on a PACS workstation. The total exam CTDI equals 2.82, 11.27, 11.38 mGy, and the total exam DLP equals 415.38 mGy-cm. One or more of the following dose reduction techniques were used: - Automated exposure control. - Adjustment of the mA and/or kV according to patient size. - Use of iterative reconstruction technique. COMPARISON: DR MIJARES 10/30/2016 FINDINGS: CT chest: Severe bullous emphysematous COPD changes are seen scattered throughout the lungs. Advanced scarrin g and chronic benign changes and pulmonary fibrosis is seen elsewhere throughout the lungs. Dense s ubsegmental atelectasis is seen within the lung bases. No focal pneumonia, effusion, pneumothorax, edema, or nodules are seen. The central tracheobronchial tree is clear. Bronchiectasis of the centr al airways is present with associated bronchial wall thickening typical of chronic bronchitis. The mediastinum is unremarkable without evidence for mass or lymphadenopathy. The vascular structur es of the mediastinum are normal in course and caliber. The heart size is normal without pericardia l thickening or effusion. The axillary, subpectoral, and supraclavicular regions are unremarkable. The surrounding chest wall is unremarkable. Right upper chest Port-A-Cath is identified in place wi th the tip in the superior vena cava, in good location. Imaging obtained through the upper abdomen i s equally unremarkable. The gallbladder is surgically absent. The adrenal glands are symmetrically n ormal. The osseous structures are unremarkable. CT pulmonary angiogram: No thrombus, clot, filling defect, or pulmonary web is identified. The pulmonary arteries are rosette l in caliber and morphology. No filling defect is present to suggest pulmonary embolism. There is no evidence for pulmonary arterial hypertension. IMPRESSION: 1. Negative CT pulmonary angiogram. No evidence for pulmonary embolism. 2. Significant smoking related COPD changes throughout the lungs. 3. Mild fibrosis and chronic scarring throughout the lungs as well. 4. Dense atelectasis within the lung bases bilaterally. 5. Scattered benign chronic senescent changes. RPTAT: HMJB .Hao Huerta MD, MD Date Time Electronically viewed and signed by .Hao Huerta MD, on 10/30/2016 18:19 .B/
[2016-10-30] MEDS: traMADol 50 MG TAB PO PRN (18:34)
[2016-10-30] MEDS: morphine 2 MG INJ IV PRN (20:31)
[2016-10-30] MEDS: NITROGLYCERIN (SL) 0.4 MG TAB SL PRN ×2 (20:45→21:01)
[2016-10-30] MEDS: ATORVASTATIN 40 MG TAB PO SCH (21:21)
[2016-10-31] VITALS (11 sets, daily range): BP systolic 98–117; BP diastolic 55–73; PULSE 77–87; RESP 16–20
[2016-10-31] MEDS: ALBUTEROL HFA 8 GM INHALER INH SCH ×4 (02:00→20:45)
[2016-10-31] MEDS: morphine 2 MG INJ IV PRN (02:45)
[2016-10-31] MEDS: PANTOPRAZOLE (EC) 40 MG TAB PO SCH (06:15)
[2016-10-31 06:58] LABS: BASOPHILS % 0.2 % (0.0-2.0); EOSINOPHILS # 0.3 10^3/ul (0.0-0.5); EOSINOPHILS % 5.1 % (0.0-7.0); HEMOGLOBIN 11.9 g/dl (12.0-16.0); LYMPHOCYTES # 1.7 10^3/ul (0.8-2.9); LYMPHOCYTES % 33.7 % (15.0-51.0); MEAN CORPUSCULAR HEMOGLOBIN 28.8 pg (29.0-33.0); MEAN CORPUSCULAR HGB CONC 33.1 g/dl (32.0-37.0); MEAN CORPUSCULAR VOLUME 87.2 fl (82.0-101.0); MEAN PLATELET VOLUME 9.4 fl (7.4-10.4); MONOCYTE # 0.6 10^3/ul (0.3-0.9); MONOCYTES % 11.4 % (0.0-11.0); NEUTROPHILS % 48.6 % (39.0-77.0); PLATELET COUNT 293 10^3/UL (140-415); RED BLOOD COUNT 4.13 10^6/ul (4.20-5.40); RED CELL DISTRIBUTION WIDTH 15.5 % (11.5-14.5); WHITE BLOOD COUNT 5.1 10^3/ul (4.8-10.8)
[2016-10-31 07:37] LABS: ALBUMIN 3.7 g/dl (3.3-4.9); ALBUMIN/GLOBULIN RATIO 1.19; BILIRUBIN,INDIRECT 0.2 mg/dl (0-1.1); BILIRUBIN,TOTAL 0.2 mg/dl (0.2-1.3); CALCIUM 8.9 mg/dl (8.4-10.2); CREATININE 0.98 mg/dl (0.44-1.00); POTASSIUM 4.4 mmol/L (3.5-5.1); TOTAL PROTEIN 6.8 g/dl (6.1-8.1)
[2016-10-31 07:42] LABS: CREATINE KINASE 74 IU/L (23-200)
[2016-10-31 07:49] LABS: CK-MB 0.26 ng/ml (0.0-2.4)
[2016-10-31 07:53] LABS: TROPONIN-I < 0.012 ng/ml (0.00-0.12)
[2016-10-31] MEDS: CARBAMIDE PEROXIDE 6.5% 15ML OTIC BOTH EARS SCH ×2 (08:24→20:35)
[2016-10-31] MEDS: LEVOFLOXACIN 500MG/D5W (PMX) 100 ML IVPB SCH (08:24)
[2016-10-31] MEDS: FLUTICASONE 0.05% 16 GM NAS SPRAY NASAL SCH (08:24)
[2016-10-31] MEDS: HEPARIN 5,000 UNIT/0.5 ML VIAL SC SCH ×2 (08:25→20:38)
[2016-10-31] MEDS: CLOPIDOGREL 75 MG TAB PO SCH (08:26)
[2016-10-31] MEDS: GABAPENTIN 300 MG CAP PO SCH ×2 (08:26→20:36)
[2016-10-31] MEDS: LUBIPROSTONE 24 MCG CAP PO SCH ×2 (08:26→20:36)
[2016-10-31] MEDS: traMADol 50 MG TAB PO PRN (08:26)
[2016-10-31] MEDS: BACLOFEN 10 MG TAB PO SCH ×2 (08:27→20:35)
[2016-10-31] MEDS: ISOSORBIDE MONONITRATE(SR)60 MG TAB PO SCH (08:27)
[2016-10-31] MEDS: FUROSEMIDE 40 MG TAB PO SCH (08:27)
[2016-10-31] MEDS: SPIRONOLACTONE 25 MG TAB PO SCH (08:27)
[2016-10-31] MEDS: ATENOLOL 25 MG TAB PO SCH ×2 (08:28→20:36)
[2016-10-31] MEDS: HYDROCODONE/APAP (10/325) TAB PO PRN ×2 (09:33→18:08)
[2016-10-31] MEDS: PROMETHAZINE 25 MG TAB PO PRN (09:33)
[2016-10-31] MEDS: ONDANSETRON 4 MG INJ IV PRN ×2 (10:23→18:07)
[2016-10-31] MEDS ORDERED: VANCOMYCIN IV PER PHARMACY XX SCH (10:30)
[2016-10-31] MEDS ORDERED: VANCOMYCIN 1.5 GM in SOD CHLORIDE 0.9% 250 ML IVPB SCH (11:30)
--- NOTE | 2016-10-31 12:36 | PN ---
Date/Time of Note Date/Time of Note DATE: 10/31/16 TIME: 12:30 Assessment/Plan VTE Prophylaxis VTE Prophylaxis Intervention: heparin Lines/Catheters IV [facility]from [facility] portacath Urinary Cath still in place: No Assessment/Plan Chief Complaint/Hosp Course Assessment/Plan: 65-year-old female with a history of COPD, pulmonary fibrosis , CHF, mitral valve prolapse, CAD, pulmonary hypertension, CVA, dyslipidemia who presented to the emergency department complaining of chest pain and dry cough. 1. Chest pain: has ruled out for acute coronary syndrome. CTA negative for pulmonary embolism.Patient was actually admitted here about 2 weeks ago for chest pain and at that time acute coronary syndrome was ruled out. 2D echocardiogram showing preserved left ventricular ejection fraction. Nuclear medicine cardiac stress test was negative for any reversible perfusion defects. -Monitor for now -Awaiting physical therapy eval 2. Sepsis: as evidenced by fever and tachycardia, likely secondary to URI versus bacteremia. One blood culture bottle is positive for gram-positive cocci. No fevers in the last 24 hours however. -Follow-up urinalysis with urine culture and blood culture final result, will also order another blood culture set -For now start vancomycin IV dosing per pharmacy until final cultures are back 3. COPD and pulmonary fibrosis. Patient on 2 or 3 L of oxygen at home. CTA did show signs of COPD in the lungs as well as mild pulmonary fibrosis - continue inhaled bronchodilators and supplemental oxygen. Will provide as needed steroid. 4. History of CAD. Continue statin. Patient is allergic to aspirin. -Started on Plavix this admission, continue especially given history of CVA as well 5. Prediabetes. Recent A1c 6.2. Diet and exercise advised -Sliding scale and 6. Dyslipidemia. Continue statin 7. Hypertension: Blood pressure was at goal -Continue antihypertensives with adjustment as needed 8. History of CVA: Continue statin - Again, now on Plavix especially given history of CAD as well Problems: Subjective 24 Hr Interval Summary Free Text/Dictation No fevers overnight. Patient has less shortness of breath symptoms today. Had CTA performed yesterday negative for pulmonary embolism. Exam/Review of Systems Vital Signs Vitals Vital Signs Date Time Temp Pulse Resp B/P Pulse Ox O2 Delivery O2 Flow Rate FiO2 10/31/16 11:34 97.8 82 18 111/60 95 10/31/16 08:50 Nasal Cannula 3.0 Intake and Output 10/30/16 10/30/16 10/31/16 15:00 23:00 07:00 Intake Total 800 ml 400 ml Output Total 600 ml Balance 200 ml 400 ml Exam Constitutional: alert, oriented, well developed Head: atraumatic, normocephalic Eyes: EOMI, PERRL Respiratory: clear to auscultation, normal air movement Cardiovascular: nl pulses, regular rate and rhythm Gastrointestinal: non-tender, soft Extremities: normal pulses Results Result Diagram: 10/31/16 0610 10/31/16 0610 Results 24 hrs Laboratory Tests Test 10/30/16 14:49 10/31/16 06:10 Creatine Kinase 118 74 Creatine Kinase Index 0.2 0.4 Creatinine Kinase MB (Mass) 0.27 0.26 Troponin I < 0.012 < 0.012 White Blood Count 5.1 # Red Blood Count 4.13 L Hemoglobin 11.9 L Hematocrit 36.0 L Mean Corpuscular Volume 87.2 Mean Corpuscular Hemoglobin 28.8 L Mean Corpuscular Hemoglobin Concent 33.1 Red Cell Distribution Width 15.5 H Platelet Count 293 Mean Platelet Volume 9.4 Neutrophils % 48.6 Lymphocytes % 33.7 Monocytes % 11.4 H Eosinophils % 5.1 Basophils % 0.2 Nucleated Red Blood Cells % 0.0 Neutrophils # (Manual) 2 Lymphocytes # 1.7 Monocytes # 0.6 Eosinophils # 0.3 Basophils # 0.0 Nucleated Red Blood Cells # 0.0 Sodium Level 140 Potassium Level 4.4 Chloride Level 96 L Carbon Dioxide Level 25 Anion Gap 23 #H Blood Urea Nitrogen 18 Creatinine 0.98 Glucose Level 104 Calcium Level 8.9 Total Bilirubin 0.2 Direct Bilirubin 0.00 Indirect Bilirubin 0.2 Aspartate Amino Transf (AST/SGOT) 29 Alanine Aminotransferase (ALT/SGPT) 44 Alkaline Phosphatase 94 Total Protein 6.8 Albumin 3.7 Globulin 3.10 Albumin/Globulin Ratio 1.19 Medications Medications Current Medications Ondansetron HCl (Zofran Inj) 4 mg Q6H PRN IV NAUSEA AND/OR VOMITING Last administered on 10/31/16 10:23; Admin Dose 4 MG; Start 10/30/16 at 07:30 Clopidogrel Bisulfate (plaVIX) 75 mg DAILY PO Last administered on 10/31/16 08 :26; Admin Dose 75 MG; Start 10/30/16 at 09:00 Nitroglycerin (Nitroglycerin (Sl Tab) 0.4 Mg) 1 tab Q5M PRN SL CHEST PAIN Last administered on 10/30/16 21:01; Admin Dose 1 TAB; Start 10/30/16 at 07:30 Acetaminophen (Tylenol Tab) 650 mg Q6H PRN PO PAIN LEVEL 1-3 OR FEVER; Start at 07:30 Morphine Sulfate (morphine) 2 mg Q4H PRN IV PAIN LEVEL 7-10 Last administered on 10/31/16 02:45; Admin Dose 2 MG; Start 10/30/16 at 07:30 Heparin Sodium (Porcine) (Heparin (5000 Units/0.5 ml)) 5,000 unit Q12 SC Last administered on 10/31/16 08:25; Admin Dose 5,000 UNIT; Start 10/30/16 at 09:00 Albuterol (Proventil 0.083% (Neb)) 2.5 mg Q3H PRN NEB WHEEZING AND SOB; Start 10/30/16 at 07:30 Atenolol (Tenormin) 25 mg BID PO Last administered on 10/31/16 08:28; Admin Dose 25 MG; Start 10/30/16 at 09:00 Atorvastatin Calcium (Lipitor) 40 mg QHS PO Last administered on 10/30/16 21: 21; Admin Dose 40 MG; Start 10/30/16 at 21:00 Baclofen (Lioresal) 10 mg BID PO Last administered on 10/31/16 08:27; Admin Dose 10 MG; Start 10/30/16 at 09:00 Carbamide Peroxide (Debrox Otic) 10 drop BID BOTH EARS Last administered on 21:21; Admin Dose 10 DROP; Start 10/30/16 at 09:00 Diphenhydramine HCl (Benadryl) 50 mg Q8 PRN PO ITCHING; Start 10/30/16 at 07:30 Furosemide (Lasix) 40 mg DAILY PO Last administered on 10/31/16 08:27; Admin Dose 40 MG; Start 10/30/16 at 09:00 Gabapentin (Neurontin) 300 mg BID PO Last administered on 10/31/16 08:26; Admin Dose 300 MG; Start 10/30/16 at 09:00 Acetaminophen/ Hydrocodone Bitart ([place] (10/325)) 1 tab Q6 PRN PO SEVERE PAIN LEVEL 7-10 Last administered on 10/31/16 09:33; Admin Dose 1 TAB; Start at 07:30 Isosorbide Mononitrate (Imdur) 60 mg DAILY PO Last administered on 10/31/16 08 :27; Admin Dose 60 MG; Start 10/30/16 at 09:00 Lubiprostone (Amitiza) 24 mcg BID PO Last administered on 10/31/16 08:26; Admin Dose 24 MCG; Start 10/30/16 at 09:00 Promethazine HCl (Phenergan) 25 mg Q6H PRN PO NAUSEA AND/OR VOMITING Last administered on 10/31/16 09:33; Admin Dose 25 MG; Start 10/30/16 at 07:30 Spironolactone (Aldactone) 25 mg DAILY PO Last administered on 10/31/16 08:27 ; Admin Dose 25 MG; Start 10/30/16 at 09:00 Tramadol HCl (Ultram) 50 mg Q6H PRN PO PAIN Last administered on 10/31/16 08: 26; Admin Dose 50 MG; Start 10/30/16 at 07:30 Pantoprazole (Protonix Tab) 40 mg DAILY@06 PO Last administered on 10/31/16 06 :15; Admin Dose 40 MG; Start 10/31/16 at 06:00 Fluticasone Propionate 2 spray 2 spray DAILY NASAL Last administered on 08:24; Admin Dose 2 SPRAY; Start 10/30/16 at 09:00 Levofloxacin/ Dextrose 100 ml @ 100 mls/hr DAILY IVPB Last administered on 08:24; Admin Dose 100 MLS/HR; Start 10/30/16 at 09:00 Vancomycin HCl/ Sodium Chloride (Vancocin/NS) 250 ml @ 83.333 mls/ hr NOW IVPB Last administered on 10/31/16 11:34; Admin Dose 83.333 MLS/HR; Start at 11:30; Stop 10/31/16 at 14:29 KEIRA VASQUEZ Oct 31, 2016 12:36
[2016-10-31] MEDS: ATORVASTATIN 40 MG TAB PO SCH (20:36)
[2016-10-31] MEDS: VANCOMYCIN 750 MG in SOD CHLORIDE 0.9% 150 ML IVPB SCH (22:57)
[2016-11-01] VITALS (13 sets, daily range): BP systolic 91–119; BP diastolic 54–67; PULSE 79–95; RESP 16–20
[2016-11-01] MEDS: HYDROCODONE/APAP (10/325) TAB PO PRN ×2 (02:15→11:33)
[2016-11-01] MEDS: ONDANSETRON 4 MG INJ IV PRN ×3 (02:15→21:01)
[2016-11-01] MEDS: ALBUTEROL HFA 8 GM INHALER INH SCH ×2 (02:16→08:00)
[2016-11-01] MEDS: PANTOPRAZOLE (EC) 40 MG TAB PO SCH (05:41)
[2016-11-01] MEDS: traMADol 50 MG TAB PO PRN (06:26)
[2016-11-01] MEDS: CARBAMIDE PEROXIDE 6.5% 15ML OTIC BOTH EARS SCH ×3 (09:00→21:00)
[2016-11-01] MEDS: SPIRONOLACTONE 25 MG TAB PO SCH (09:00)
[2016-11-01] MEDS: ISOSORBIDE MONONITRATE(SR)60 MG TAB PO SCH (09:00)
[2016-11-01] MEDS: FUROSEMIDE 40 MG TAB PO SCH (09:00)
[2016-11-01] MEDS: ATENOLOL 25 MG TAB PO SCH ×2 (09:00→21:01)
[2016-11-01] MEDS: LEVOFLOXACIN 500MG/D5W (PMX) 100 ML IVPB SCH (09:43)
[2016-11-01] MEDS: FLUTICASONE 0.05% 16 GM NAS SPRAY NASAL SCH (09:48)
[2016-11-01] MEDS: GABAPENTIN 300 MG CAP PO SCH ×2 (09:51→21:01)
[2016-11-01] MEDS: LUBIPROSTONE 24 MCG CAP PO SCH ×2 (09:51→21:00)
[2016-11-01] MEDS: CLOPIDOGREL 75 MG TAB PO SCH (09:51)
[2016-11-01] MEDS: BACLOFEN 10 MG TAB PO SCH ×2 (09:53→21:03)
[2016-11-01] MEDS: HEPARIN 5,000 UNIT/0.5 ML VIAL SC SCH ×2 (09:53→21:10)
--- NOTE | 2016-11-01 11:21 | PN ---
Date/Time of Note Date/Time of Note DATE: 11/01/16 TIME: 11:18 Assessment/Plan VTE Prophylaxis VTE Prophylaxis Intervention: heparin Lines/Catheters IV [facility]ter Type (from [email or web address] portacath Urinary Cath still in place: No Assessment/Plan Chief Complaint/Hosp Course Assessment/Plan: 65-year-old female with a history of COPD, pulmonary fibrosis , CHF, mitral valve prolapse, CAD, pulmonary hypertension, CVA, dyslipidemia who presented to the emergency department complaining of chest pain and dry cough. 1. Chest pain: has ruled out for acute coronary syndrome. CTA negative for pulmonary embolism.Patient was actually admitted here about 2 weeks ago for chest pain and at that time acute coronary syndrome was ruled out. 2D echocardiogram showing preserved left ventricular ejection fraction. Nuclear medicine cardiac stress test was negative for any reversible perfusion defects. -Monitor for now -Awaiting physical therapy eval (ordered 2 days ago) 2. Sepsis: as evidenced by fever and tachycardia on admission, likely secondary to URI versus bacteremia. One blood culture bottle is positive for gram-positive cocci. No fevers in the last 48 hours however. -Follow-up urinalysis with urine culture and blood culture final result, follow-up repeat blood culture set results -For now start vancomycin IV dosing per pharmacy until final cultures are back 3. COPD and pulmonary fibrosis. Patient on 2 or 3 L of oxygen at home. CTA did show signs of COPD in the lungs as well as mild pulmonary fibrosis - continue inhaled bronchodilators and supplemental oxygen. Will provide as needed steroid. 4. History of CAD. Continue statin. Patient is allergic to aspirin. -Started on Plavix this admission, continue especially given history of CVA as well 5. Prediabetes. Recent A1c 6.2. Diet and exercise advised -Sliding scale and 6. Dyslipidemia. Continue statin 7. Hypertension: Blood pressure was at goal -Continue antihypertensives with adjustment as needed 8. History of CVA: Continue statin - Again, now on Plavix especially given history of CAD as well Problems: Subjective 24 Hr Interval Summary Free Text/Dictation Patient still having occasional chest pressure and pain along with some cough. Less shortness of breath. Exam/Review of Systems Vital Signs Vitals Vital Signs Date Time Temp Pulse Resp B/P Pulse Ox O2 Delivery O2 Flow Rate FiO2 11/01/16 08:05 82 11/01/16 07:41 98.0 20 98/55 95 11/01/16 00:27 2.0 10/31/16 20:00 Nasal Cannula Intake and Output 10/31/16 10/31/16 11/01/16 15:00 23:00 07:00 Intake Total 350 ml 920 ml 750 ml Output Total 710 ml 700 ml Balance 350 ml 210 ml 50 ml Exam Constitutional: alert, oriented, well developed Head: atraumatic, normocephalic Eyes: EOMI, PERRL Respiratory: clear to auscultation, normal air movement Cardiovascular: nl pulses, regular rate and rhythm Gastrointestinal: non-tender, soft Extremities: normal pulses Results Result Diagram: 10/31/16 0610 10/31/16 0610 Medications Medications Current Medications Ondansetron HCl (Zofran Inj) 4 mg Q6H PRN IV NAUSEA AND/OR VOMITING Last administered on 11/01/16 02:15; Admin Dose 4 MG; Start 10/30/16 at 07:30 Clopidogrel Bisulfate (plaVIX) 75 mg DAILY PO Last administered on 11/01/16 09 :51; Admin Dose 75 MG; Start 10/30/16 at 09:00 Nitroglycerin (Nitroglycerin (Sl Tab) 0.4 Mg) 1 tab Q5M PRN SL CHEST PAIN Last administered on 10/30/16 21:01; Admin Dose 1 TAB; Start 10/30/16 at 07:30 Acetaminophen (Tylenol Tab) 650 mg Q6H PRN PO PAIN LEVEL 1-3 OR FEVER; Start at 07:30 Morphine Sulfate (morphine) 2 mg Q4H PRN IV PAIN LEVEL 7-10 Last administered on 10/31/16 02:45; Admin Dose 2 MG; Start 10/30/16 at 07:30 Heparin Sodium (Porcine) (Heparin (5000 Units/0.5 ml)) 5,000 unit Q12 SC Last administered on 11/01/16 09:53; Admin Dose 5,000 UNIT; Start 10/30/16 at 09:00 Albuterol (Proventil 0.083% (Neb)) 2.5 mg Q3H PRN NEB WHEEZING AND SOB; Start 10/30/16 at 07:30 Atenolol (Tenormin) 25 mg BID PO Last administered on 10/31/16 20:36; Admin Dose 25 MG; Start 10/30/16 at 09:00 Atorvastatin Calcium (Lipitor) 40 mg QHS PO Last administered on 10/31/16 20: 36; Admin Dose 40 MG; Start 10/30/16 at 21:00 Baclofen (Lioresal) 10 mg BID PO Last administered on 11/01/16 09:53; Admin Dose 10 MG; Start 10/30/16 at 09:00 Carbamide Peroxide (Debrox Otic) 10 drop BID BOTH EARS Last administered on 20:35; Admin Dose 10 DROP; Start 10/30/16 at 09:00 Diphenhydramine HCl (Benadryl) 50 mg Q8 PRN PO ITCHING; Start 10/30/16 at 07:30 Furosemide (Lasix) 40 mg DAILY PO Last administered on 10/31/16 08:27; Admin Dose 40 MG; Start 10/30/16 at 09:00 Gabapentin (Neurontin) 300 mg BID PO Last administered on 11/01/16 09:51; Admin Dose 300 MG; Start 10/30/16 at 09:00 Acetaminophen/ Hydrocodone Bitart ([place] (10/325)) 1 tab Q6 PRN PO SEVERE PAIN LEVEL 7-10 Last administered on 11/01/16 02:15; Admin Dose 1 TAB; Start at 07:30 Isosorbide Mononitrate (Imdur) 60 mg DAILY PO Last administered on 10/31/16 08 :27; Admin Dose 60 MG; Start 10/30/16 at 09:00 Lubiprostone (Amitiza) 24 mcg BID PO Last administered on 11/01/16 09:51; Admin Dose 24 MCG; Start 10/30/16 at 09:00 Promethazine HCl (Phenergan) 25 mg Q6H PRN PO NAUSEA AND/OR VOMITING Last administered on 10/31/16 09:33; Admin Dose 25 MG; Start 10/30/16 at 07:30 Spironolactone (Aldactone) 25 mg DAILY PO Last administered on 10/31/16 08:27 ; Admin Dose 25 MG; Start 10/30/16 at 09:00 Tramadol HCl (Ultram) 50 mg Q6H PRN PO PAIN Last administered on 11/01/16 06: 26; Admin Dose 50 MG; Start 10/30/16 at 07:30 Pantoprazole (Protonix Tab) 40 mg DAILY@06 PO Last administered on 11/01/16 05 :41; Admin Dose 40 MG; Start 10/31/16 at 06:00 Fluticasone Propionate 2 spray 2 spray DAILY NASAL Last administered on 09:48; Admin Dose 2 SPRAY; Start 10/30/16 at 09:00 Levofloxacin/ Dextrose 100 ml @ 100 mls/hr DAILY IVPB Last administered on 09:43; Admin Dose 100 MLS/HR; Start 10/30/16 at 09:00 Vancomycin HCl/ Sodium Chloride (Vancocin/NS) 150 ml @ 75 mls/hr Q12H IVPB Last administered on 10/31/16 22:57; Admin Dose 75 MLS/HR; Start 10/31/16 at 23 :00 Miscellaneous Information (*Rx Drug Level Order Reminder*) VANCOMYCIN TROUGH AT 2200 ONCE ONCE XX ; Start 11/01/16 at 22:00; Stop 11/01/16 at 22:01 KEIRA VASQUEZ Nov 01, 2016 11:21
[2016-11-01] MEDS ORDERED: GUAIFENESIN 20 MG/ML 5ML CUP PO PRN (11:30)
[2016-11-01] MEDS: VANCOMYCIN 750 MG in SOD CHLORIDE 0.9% 150 ML IVPB SCH ×2 (11:32→23:00)
[2016-11-01] MEDS: MAGNESIUM HYDROXIDE 30ML CUP PO PRN (13:58)
[2016-11-01] MEDS: ALBUTEROL 18 GM INHALER INH SCH ×2 (13:59→20:59)
[2016-11-01] MEDS: ATORVASTATIN 40 MG TAB PO SCH (21:01)
[2016-11-02] VITALS (12 sets, daily range): BP systolic 92–109; BP diastolic 53–62; PULSE 81–89; RESP 18–20
[2016-11-02] MEDS: ALBUTEROL 18 GM INHALER INH SCH ×4 (02:00→20:48)
[2016-11-02] MEDS: traMADol 50 MG TAB PO PRN ×2 (05:23→11:20)
[2016-11-02] MEDS: PANTOPRAZOLE (EC) 40 MG TAB PO SCH (05:23)
[2016-11-02 08:28] LABS: BASOPHILS % 0.5 % (0.0-2.0); EOSINOPHILS # 0.2 10^3/ul (0.0-0.5); HEMATOCRIT 35.3 % (37.0-47.0); HEMOGLOBIN 11.5 g/dl (12.0-16.0); LYMPHOCYTES # 1.3 10^3/ul (0.8-2.9); LYMPHOCYTES % 23.9 % (15.0-51.0); MEAN CORPUSCULAR HEMOGLOBIN 28.7 pg (29.0-33.0); MEAN CORPUSCULAR HGB CONC 32.6 g/dl (32.0-37.0); MEAN PLATELET VOLUME 9.2 fl (7.4-10.4); MONOCYTE # 0.4 10^3/ul (0.3-0.9); MONOCYTES % 7.1 % (0.0-11.0); PLATELET COUNT 307 10^3/UL (140-415); RED BLOOD COUNT 4.01 10^6/ul (4.20-5.40); RED CELL DISTRIBUTION WIDTH 14.7 % (11.5-14.5); WHITE BLOOD COUNT 5.5 10^3/ul (4.8-10.8)
[2016-11-02 08:47] LABS: CREATININE 0.94 mg/dl (0.44-1.00)
[2016-11-02] MEDS: ISOSORBIDE MONONITRATE(SR)60 MG TAB PO SCH (09:00)
[2016-11-02] MEDS: ATENOLOL 25 MG TAB PO SCH ×2 (09:00→20:50)
[2016-11-02] MEDS: CARBAMIDE PEROXIDE 6.5% 15ML OTIC BOTH EARS SCH ×2 (09:27→20:56)
[2016-11-02] MEDS: ONDANSETRON 4 MG INJ IV PRN ×3 (09:27→20:56)
[2016-11-02] MEDS: FLUTICASONE 0.05% 16 GM NAS SPRAY NASAL SCH (09:27)
[2016-11-02] MEDS: SPIRONOLACTONE 25 MG TAB PO SCH (09:28)
[2016-11-02] MEDS: CLOPIDOGREL 75 MG TAB PO SCH (09:28)
[2016-11-02] MEDS: GABAPENTIN 300 MG CAP PO SCH ×2 (09:28→20:50)
[2016-11-02] MEDS: HYDROCODONE/APAP (10/325) TAB PO PRN ×3 (09:28→20:55)
[2016-11-02] MEDS: LUBIPROSTONE 24 MCG CAP PO SCH ×2 (09:28→20:50)
[2016-11-02] MEDS: BACLOFEN 10 MG TAB PO SCH ×2 (09:28→20:50)
[2016-11-02] MEDS: HEPARIN 5,000 UNIT/0.5 ML VIAL SC SCH ×2 (09:46→20:53)
[2016-11-02] MEDS: LEVOFLOXACIN 500MG/D5W (PMX) 100 ML IVPB SCH (09:47)
[2016-11-02] MEDS: FUROSEMIDE 40 MG TAB PO SCH (09:48)
[2016-11-02] MEDS: VANCOMYCIN 750 MG in SOD CHLORIDE 0.9% 150 ML IVPB SCH (11:14)
[2016-11-02] MEDS ORDERED: GUAI-637 PO (11:48)
[2016-11-02] MEDS ORDERED: UDMOM PO (11:48)
--- NOTE | 2016-11-02 11:48 | PDOCDIS ---
Discharge Instructions CONDITION Patient Condition: Stable HOME CARE INSTRUCTIONS: Special Diet: cardiac diet ACTIVITY: Activity Restrictions: Slowly Increase Activity FOLLOW UP/APPOINTMENTS Follow-up Plan Please take your medications as prescribed. Please follow-up with your regular doctor in the clinic in the next 1 week. KEIRA VASQUEZ Nov 02, 2016 11:48
--- NOTE | 2016-11-02 11:57 | DS ---
Date/Time of Note Date/Time of Note DATE: 11/02/16 TIME: 11:51 Discharge Summary Admission/Discharge Info Admit Date/Time Oct 30, 2016 at 05:21 Discharge Date/Time Discharge Diagnosis 1. Chest pain: has ruled out for acute coronary syndrome. CTA negative for pulmonary embolism.Nuclear medicine cardiac stress test was negative for any reversible perfusion defects 2 weeks ago when the patient was admitted here 2. Sepsis: as evidenced by fever and tachycardia on admission, likely secondary to URI versus bacteremia-now resolved. One blood culture bottle is positive for gram-positive cocci. 3. COPD and pulmonary fibrosis. Patient on 2 or 3 L of oxygen at home 4. History of CAD. Continue statin and now Plavix 5. Prediabetes. Recent A1c 6.2. Diet and exercise advised 6. Dyslipidemia. Continue statin 7. Hypertension: Blood pressure was at goal -Continue antihypertensives with adjustment as needed 8. History of CVA Patient Condition: Stable Hospital Course 65-year-old female with a history of COPD, pulmonary fibrosis, CHF, mitral valve prolapse, CAD, pulmonary hypertension, CVA, dyslipidemia who presented to the emergency department complaining of chest pain and dry cough. Chest pain started a few hours prior to arrival. It is substernal with no radiation. No associated nausea vomiting or diaphoresis. She stated that she was just discharged from an outside hospital 2 days ago. Patient however he cannot remember why she was admitted there to begin with, but stated that she was complaining of cough even at the time of discharge. Patient reports chronic shortness of breath. She is on 2 or 3 L of oxygen at home. Patient was actually admitted here less than 2 weeks ago for chest pain. At that time she was seen by cardiology and underwent a nuclear stress test which was negative for ischemia. A 2D echo showed When she presented to the ER this time, she was febrile with a temperature of 100.8, tachycardic with a heart rate of 121. Blood pressure is okay and CBC and CMP are within normal limits. Patient was admitted, she had CTA that was performed that was negative for pulmonary embolism. Over the course of her hospital a chest pain symptoms improved, she ruled out for acute coronary syndrome. It was still present mildly by the time of discharge, but thought to be musculoskeletal in origin. Her repeat blood cultures were negative for gram- positive cocci, and her urine culture only showed 10,000-20,000 colony-forming units of bacteria. Not a true UTI. She had no fevers for the last 72 hours of her stay. She was awaiting physical therapy eval but once this is performed today she will be discharged home today improved condition. See below for full list of discharge medications. She will need 7 more days of p.o. antibiotics, and has been started on Plavix as a new medication as well given her prior stroke. Home Meds Active Scripts Magnesium Hydroxide* (Leon' MOM*) 30 Ml Susp, 30 ML PO Q6H Y for CONSTIPATION, #1 Prov:EMMIE VASQUEZP S. 11/02/16 Guaifenesin (Guaifenesin) 100 Mg/5 Ml Liquid, 200 MG PO Q4H Y for COUGH, #1 Prov:KEIRA VASQUEZ S. 11/02/16 Reported Medications Tramadol Hcl* (Ultram*) 50 Mg Tablet, 50 MG PO Q6H Y for PAIN, TAB 09/15/16 Carbamide Peroxide* (Debrox*) 6.5% - 15 Ml Drops, 10 DROP BOTH EARS BID, BOTTLE 09/15/16 Atorvastatin* (Atorvastatin*) 40 Mg Tablet, 40 MG PO QHS, #30 TAB 09/15/16 Promethazine Hcl* (Phenergan*) 25 Mg Tablet, 25 MG PO Q6H Y for NAUSEA AND/OR VOMITING, TAB 09/15/16 Ibuprofen* (Ibuprofen*) 800 Mg Tablet, 800 MG PO Q4 Y for WHEEZING AND SOB, TAB 09/15/16 Mometasone Furoate* (Nasonex*) 50 Mcg/[place] - 17 Gm [place].pump, 2 SPRAY NASAL DAILY, #1 BOTTLE TO EACH NOSTRIL 09/15/16 Albuterol Sulfate* (Ventolin HFA*) 18 Gm Hfa.aer.ad, 2 PUFF INHALATION Q6H, #1 INHALER 09/15/16 Aclidinium [place] (Tudorza Pressair) 400 Mcg Aer.pow.ba, 400 MCG IH BID, EA 09/15/16 Albuterol Sulfate* (Albuterol Sulfate* Neb) 0.083%-3 Ml Neb, 2.5 MG NEB Q3H Y for WHEEZING AND SOB, #30 VIAL 09/15/16 Diphenhydramine Hcl* (Benadryl*) 50 Mg Cap, 50 MG PO Q8 Y for ITCHING, CAP 09/15/16 Esomeprazole Mag Trihydrate (Nexium) 40 Mg Capsule.dr, 40 MG PO DAILY, #30 CAP 09/15/16 Lubiprostone* (Amitiza*) 24 Mcg Capsule, 24 MCG PO BID, #60 CAP 09/15/16 Hydrocodone/Acetaminophen ([place] 10-325 Tablet) 1 Each Tablet, 1 EACH PO Q6 Y for SEVERE PAIN LEVEL 7-10, TAB 09/15/16 Aspirin* (Aspirin* EC) 81 Mg Tablet.dr, 81 MG PO DAILY, TAB 09/15/16 Gabapentin* (Neurontin*) 300 Mg Capsule, 300 MG PO BID, #60 CAP 09/15/16 Baclofen* (Baclofen*) 10 Mg Tablet, 10-20 MG PO BID, TAB 09/15/16 Spironolactone* (Aldactone*) 25 Mg Tablet, 25 MG PO DAILY, #30 TAB 09/15/16 Furosemide* (Furosemide*) 40 Mg Tablet, 40 MG PO DAILY, TAB 09/15/16 Isosorbide Mononitrate* (Isosorbide Mononitrate*) 60 Mg Tab.er.24h, 60 MG PO DAILY, TAB 09/15/16 Atenolol* (Atenolol*) 25 Mg Tablet, 25 MG PO BID, #60 TAB 09/15/16 Primary Care Provider Lashawn Rios Time spent on discharge: > 30 minutes Pending Labs Laboratory Tests Test 11/01/16 22:30 11/02/16 07:28 Vancomycin Level Trough 24.1ug/ml (10.0-20.0) White Blood Count 5.510^3/ul (4.8-10.8) Red Blood Count 4.0110^6/ul (4.20-5.40) Hemoglobin 11.5g/dl (12.0-16.0) Hematocrit 35.3% (37.0-47.0) Mean Corpuscular Volume 88.0fl (82.0-101.0) Mean Corpuscular Hemoglobin 28.7pg (29.0-33.0) Mean Corpuscular Hemoglobin Concent 32.6g/dl (32.0-37.0) Red Cell Distribution Width 14.7% (11.5-14.5) Platelet Count 19248^3/UL (140-415) Mean Platelet Volume 9.2fl (7.4-10.4) Neutrophils % 64.0% (39.0-77.0) Lymphocytes % 23.9% (15.0-51.0) Monocytes % 7.1% (0.0-11.0) Eosinophils % 4.0% (0.0-7.0) Basophils % 0.5% (0.0-2.0) Nucleated Red Blood Cells % 0.0/100WBC (0.0-0.0) Neutrophils # (Manual) 310^3/ul (1.7-7.5) Lymphocytes # 1.310^3/ul (0.8-2.9) Monocytes # 0.410^3/ul (0.3-0.9) Eosinophils # 0.210^3/ul (0.0-0.5) Basophils # 0.010^3/ul (0.0-0.1) Nucleated Red Blood Cells # 0.010^3/ul (0.0-0.0) Blood Urea Nitrogen 13mg/dl (7-20) Creatinine 0.94mg/dl (0.44-1.00) KEIRA VASQUEZ Nov 02, 2016 11:57
[2016-11-02] MEDS ORDERED: LEVO750T25 PO (11:58)
[2016-11-02] MEDS ORDERED: CLOP75TA28 PO (11:58)
[2016-11-02] MEDS ORDERED: MINERAL OIL 133 ML ENEMA PR PRN (20:00)
[2016-11-02] MEDS: ATORVASTATIN 40 MG TAB PO SCH (20:49)
[2016-11-02] MEDS: ALBUTEROL/IPRATROPIUM (NEB) 3 ML AMP HHN PRN (22:50)
[2016-11-03] VITALS (10 sets, daily range): BP systolic 93–116; BP diastolic 59–68; PULSE 85–89; RESP 18–20
[2016-11-03] MEDS: ALBUTEROL 18 GM INHALER INH SCH ×3 (02:00→14:55)
[2016-11-03] MEDS: HYDROCODONE/APAP (10/325) TAB PO PRN ×2 (04:30→10:31)
[2016-11-03] MEDS: ONDANSETRON 4 MG INJ IV PRN ×2 (04:30→10:29)
[2016-11-03] MEDS: PANTOPRAZOLE (EC) 40 MG TAB PO SCH (05:20)
[2016-11-03 08:19] LABS: BASOPHILS % 0.6 % (0.0-2.0); EOSINOPHILS # 0.2 10^3/ul (0.0-0.5); EOSINOPHILS % 4.9 % (0.0-7.0); HEMATOCRIT 37.9 % (37.0-47.0); HEMOGLOBIN 12.2 g/dl (12.0-16.0); LYMPHOCYTES # 1.5 10^3/ul (0.8-2.9); LYMPHOCYTES % 30.5 % (15.0-51.0); MEAN CORPUSCULAR HEMOGLOBIN 28.2 pg (29.0-33.0); MEAN CORPUSCULAR HGB CONC 32.2 g/dl (32.0-37.0); MEAN CORPUSCULAR VOLUME 87.5 fl (82.0-101.0); MONOCYTE # 0.4 10^3/ul (0.3-0.9); NEUTROPHILS % 55.6 % (39.0-77.0); PLATELET COUNT 315 10^3/UL (140-415); RED BLOOD COUNT 4.33 10^6/ul (4.20-5.40); RED CELL DISTRIBUTION WIDTH 14.7 % (11.5-14.5); WHITE BLOOD COUNT 4.9 10^3/ul (4.8-10.8)
[2016-11-03] MEDS: LUBIPROSTONE 24 MCG CAP PO SCH (08:24)
[2016-11-03] MEDS: SPIRONOLACTONE 25 MG TAB PO SCH (08:24)
[2016-11-03] MEDS: ATENOLOL 25 MG TAB PO SCH (08:25)
[2016-11-03] MEDS: traMADol 50 MG TAB PO PRN (08:25)
[2016-11-03] MEDS: GABAPENTIN 300 MG CAP PO SCH (08:25)
[2016-11-03] MEDS: FUROSEMIDE 40 MG TAB PO SCH (08:25)
[2016-11-03] MEDS: CLOPIDOGREL 75 MG TAB PO SCH (08:25)
[2016-11-03] MEDS: FLUTICASONE 0.05% 16 GM NAS SPRAY NASAL SCH (08:25)
[2016-11-03] MEDS: ISOSORBIDE MONONITRATE(SR)60 MG TAB PO SCH (08:25)
[2016-11-03] MEDS: BACLOFEN 10 MG TAB PO SCH (08:25)
[2016-11-03] MEDS: CARBAMIDE PEROXIDE 6.5% 15ML OTIC BOTH EARS SCH (08:26)
[2016-11-03] MEDS: LEVOFLOXACIN 500MG/D5W (PMX) 100 ML IVPB SCH (08:32)
[2016-11-03] MEDS: HEPARIN 5,000 UNIT/0.5 ML VIAL SC SCH (08:35)
[2016-11-03] MEDS: MAGNESIUM HYDROXIDE 30ML CUP PO PRN (10:28)
[2016-11-03] MEDS: VANCOMYCIN 750 MG in SOD CHLORIDE 0.9% 150 ML IVPB SCH (10:38)
[2016-11-03] MEDS ORDERED: POLYETHYLENE GLYCOL 17 GM PACKET PO ONE (14:00)
--- NOTE | 2016-11-03 16:59 | DS ---
Date/Time of Note Date/Time of Note DATE: 11/03/16 TIME: 16:59 Discharge Summary Admission/Discharge Info Admit Date/Time Oct 30, 2016 at 05:21 Discharge Date/Time Discharge Diagnosis chest pain, chronic COPD Patient Condition: Stable Consults none Procedures 10.30 CTA chest IMPRESSION: 1. Negative CT pulmonary angiogram. No evidence for pulmonary embolism. 2. Significant smoking related COPD changes throughout the lungs. 3. Mild fibrosis and chronic scarring throughout the lungs as well. 4. Dense atelectasis within the lung bases bilaterally. 5. Scattered benign chronic senescent changes. Hx of Present Illness This is a 65-year-old female with a history of COPD, pulmonary fibrosis, CHF, mitral valve prolapse, CAD, pulmonary hypertension, CVA, dyslipidemia who presented to the emergency department complaining of chest pain and dry cough. Chest pain started a few hours prior to arrival. It is substernal with no radiation. No associated nausea vomiting or diaphoresis. She stated that she was just discharged from an outside hospital 2 days ago. Patient however he cannot remember why she was admitted there to begin with, but stated that she was complaining of cough even at the time of discharge. Patient reports chronic shortness of breath. She is on 2 or 3 L of oxygen at home. Patient was actually admitted here less than 2 weeks ago for chest pain. At that time she was seen by cardiology and underwent a nuclear stress test which was negative for ischemia. A 2D echo showed When she presented to the ER this time, she was febrile with a temperature of 100.8, tachycardic with a heart rate of 121. Blood pressure is okay and CBC and CMP are within normal limits. Hospital Course Re pt's chest pain, CTA negative for PE. Stress test 2 weeks ago nl. TTE unremarkable 2 weeks ago. No clear cardiac etio of patient's chest pain. Pt's admit blood culture grew out CONS, suspect contaminant. Pt did not required additional O2 beyond home needs. Pt seen by PT which advised SNF but pt refused thus PT arranged instead. Etio of pt's fevers never found as pt without dysuria prior to admission and blood cultures likely contaminant, CXR without pneumonia. Consider URI? which would most likely have been viral in origin. Changes from admit meds: plavix added for CVA hx Home Meds Active Scripts Clopidogrel Bisulfate (Clopidogrel) 75 Mg Tablet, 75 MG PO DAILY, #30 TAB Prov:EMMIE VASQUEZP S. 11/02/16 Magnesium Hydroxide* (Leon' MOM*) 30 Ml Susp, 30 ML PO Q6H Y for CONSTIPATION, #1 Prov:EMMIE VASQUEZP S. 11/02/16 Guaifenesin (Guaifenesin) 100 Mg/5 Ml Liquid, 200 MG PO Q4H Y for COUGH, #1 Prov:KEIRA VASQUEZ S. 11/02/16 Reported Medications Tramadol Hcl* (Ultram*) 50 Mg Tablet, 50 MG PO Q6H Y for PAIN, TAB 09/15/16 Carbamide Peroxide* (Debrox*) 6.5% - 15 Ml Drops, 10 DROP BOTH EARS BID, BOTTLE 09/15/16 Atorvastatin* (Atorvastatin*) 40 Mg Tablet, 40 MG PO QHS, #30 TAB 09/15/16 Promethazine Hcl* (Phenergan*) 25 Mg Tablet, 25 MG PO Q6H Y for NAUSEA AND/OR VOMITING, TAB 09/15/16 Ibuprofen* (Ibuprofen*) 800 Mg Tablet, 800 MG PO Q4 Y for WHEEZING AND SOB, TAB 09/15/16 Mometasone Furoate* (Nasonex*) 50 Mcg/[place] - 17 Gm [place].pump, 2 SPRAY NASAL DAILY, #1 BOTTLE TO EACH NOSTRIL 09/15/16 Albuterol Sulfate* (Ventolin HFA*) 18 Gm Hfa.aer.ad, 2 PUFF INHALATION Q6H, #1 INHALER 09/15/16 Aclidinium [place] (Tudorza Pressair) 400 Mcg Aer.pow.ba, 400 MCG IH BID, EA 09/15/16 Albuterol Sulfate* (Albuterol Sulfate* Neb) 0.083%-3 Ml Neb, 2.5 MG NEB Q3H Y for WHEEZING AND SOB, #30 VIAL 09/15/16 Diphenhydramine Hcl* (Benadryl*) 50 Mg Cap, 50 MG PO Q8 Y for ITCHING, CAP 09/15/16 Esomeprazole Mag Trihydrate (Nexium) 40 Mg Capsule.dr, 40 MG PO DAILY, #30 CAP 09/15/16 Lubiprostone* (Amitiza*) 24 Mcg Capsule, 24 MCG PO BID, #60 CAP 09/15/16 Hydrocodone/Acetaminophen ([place] 10-325 Tablet) 1 Each Tablet, 1 EACH PO Q6 Y for SEVERE PAIN LEVEL 7-10, TAB 09/15/16 Aspirin* (Aspirin* EC) 81 Mg Tablet.dr, 81 MG PO DAILY, TAB 09/15/16 Gabapentin* (Neurontin*) 300 Mg Capsule, 300 MG PO BID, #60 CAP 09/15/16 Baclofen* (Baclofen*) 10 Mg Tablet, 10-20 MG PO BID, TAB 09/15/16 Spironolactone* (Aldactone*) 25 Mg Tablet, 25 MG PO DAILY, #30 TAB 09/15/16 Furosemide* (Furosemide*) 40 Mg Tablet, 40 MG PO DAILY, TAB 09/15/16 Isosorbide Mononitrate* (Isosorbide Mononitrate*) 60 Mg Tab.er.24h, 60 MG PO DAILY, TAB 09/15/16 Atenolol* (Atenolol*) 25 Mg Tablet, 25 MG PO BID, #60 TAB 09/15/16 Primary Care Provider Lashanw Rios Pending Labs Laboratory Tests Test 11/03/16 07:27 White Blood Count 4.910^3/ul (4.8-10.8) Red Blood Count 4.3310^6/ul (4.20-5.40) Hemoglobin 12.2g/dl (12.0-16.0) Hematocrit 37.9% (37.0-47.0) Mean Corpuscular Volume 87.5fl (82.0-101.0) Mean Corpuscular Hemoglobin 28.2pg (29.0-33.0) Mean Corpuscular Hemoglobin Concent 32.2g/dl (32.0-37.0) Red Cell Distribution Width 14.7% (11.5-14.5) Platelet Count 44702^3/UL (140-415) Mean Platelet Volume 9.0fl (7.4-10.4) Neutrophils % 55.6% (39.0-77.0) Lymphocytes % 30.5% (15.0-51.0) Monocytes % 8.0% (0.0-11.0) Eosinophils % 4.9% (0.0-7.0) Basophils % 0.6% (0.0-2.0) Nucleated Red Blood Cells % 0.0/100WBC (0.0-0.0) Neutrophils # (Manual) 310^3/ul (1.7-7.5) Lymphocytes # 1.510^3/ul (0.8-2.9) Monocytes # 0.410^3/ul (0.3-0.9) Eosinophils # 0.210^3/ul (0.0-0.5) Basophils # 0.010^3/ul (0.0-0.1) Nucleated Red Blood Cells # 0.010^3/ul (0.0-0.0) CLEO YOUSSEF MD Nov 03, 2016 16:59 (0.0-0.1) Nucleated Red Blood Cells # 0.010^3/ul (0.0-0.0) CLEO YOUSSEF MD Nov 03, 2016 16:59
[2016-11-03] MEDS ORDERED: ACLIDINIUM BROMIDE 400 MCG IH SCH (21:00)
== END 2016-11-03 17:15 | disposition home health service (06) | DRG 872 ==
LOC: E/R 04:03 → MS4 05:21
PROVIDERS: ADMIT Internal Medicine; ATTEND Internal Medicine
DX: A41.9 Sepsis, unspecified organism (principal); J84.10 Pulmonary fibrosis, unspecified; Z99.81 Dependence on supplemental oxygen; J98.11 Atelectasis; J44.9 Chronic obstructive pulmonary disease, unspecified; J06.9 Acute upper respiratory infection, unspecified; I25.10 Atherosclerotic heart disease of native coronary artery without angina pectoris; I10 Essential (primary) hypertension; R73.03 Prediabetes; F17.200 Nicotine dependence, unspecified, uncomplicated; E78.5 Hyperlipidemia, unspecified; Z79.02 Long term (current) use of antithrombotics/antiplatelets; I25.2 Old myocardial infarction; Z79.82 Long term (current) use of aspirin; Z86.73 Personal history of transient ischemic attack (TIA), and cerebral infarction without residual deficits; Z86.79 Personal history of other diseases of the circulatory system
CPT/HCPCS: 36415; 71010; 71275; 80048; 80053; 80202; 82550; 82553; 82565; 84484; 84520; 85025; 85378; 85610; 85730; 87040; 87086; 93005; 94640; 94664; 97162; J1644; J1956; J2270; J2405; J3370; J7050; Q9967

== ENCOUNTER 2016-12-12 12:03 | Emergency (ER) | payer MEDICARE, OTHER ==
[~2016-12-12] VITALS: Ht 167.6 cm; Wt 73.0 kg
[~2016-12-12 12:03] MED LIST changes: +CLOP75TA28 PO; +GUAI-637 PO; +UDMOM PO
[2016-12-12 12:05] VITALS: Ht 167.6 cm; Wt 73.0 kg
--- NOTE | 2016-12-12 12:11 | ERA ---
ER Documentation Chief Complaint Date/Time DATE: 12/12/16 TIME: 12:11 Chief Complaint HPI 66-year-old woman complains of dizziness and anxiety after visiting her son who is admitted into the hospital. She was worried about his overall condition and medical records. She states she felt stressed out and dizzy which lasted for a few minutes. She denies loss of consciousness, no chest pain or shortness of breath, no vomiting, no headache or blurry vision, no slurred speech, no weakness in arms or legs. ROS All systems reviewed and are negative except as per history of present illness. Medications Home Meds Active Scripts Albuterol Sulfate* (Proair HFA*) 8.5 Gm Hfa.aer.ad, 2 PUFF INH Q6H Y for WHEEZING AND SOB, #1 INHALER Prov:MCKINLEY CAREY MD 12/12/16 Cephalexin* (Keflex*) 500 Mg Capsule, 500 MG PO QID for 5 Days, CAP Prov:MCKINLEY CAREY MD 12/12/16 Clopidogrel Bisulfate (Clopidogrel) 75 Mg Tablet, 75 MG PO DAILY, #30 TAB Prov:KEIRA VASQUEZ S. 11/02/16 Magnesium Hydroxide* (Leon' MOM*) 30 Ml Susp, 30 ML PO Q6H Y for CONSTIPATION, #1 Prov:KEIRA VASQUEZ S. 11/02/16 Guaifenesin (Guaifenesin) 100 Mg/5 Ml Liquid, 200 MG PO Q4H Y for COUGH, #1 Prov:KEIRA VASQUEZ S. 11/02/16 Reported Medications Tramadol Hcl* (Ultram*) 50 Mg Tablet, 50 MG PO Q6H Y for PAIN, TAB 09/15/16 Carbamide Peroxide* (Debrox*) 6.5% - 15 Ml Drops, 10 DROP BOTH EARS BID, BOTTLE 09/15/16 Atorvastatin* (Atorvastatin*) 40 Mg Tablet, 40 MG PO QHS, #30 TAB 09/15/16 Promethazine Hcl* (Phenergan*) 25 Mg Tablet, 25 MG PO Q6H Y for NAUSEA AND/OR VOMITING, TAB 09/15/16 Ibuprofen* (Ibuprofen*) 800 Mg Tablet, 800 MG PO Q4 Y for WHEEZING AND SOB, TAB 09/15/16 Mometasone Furoate* (Nasonex*) 50 Mcg/[place] - 17 Gm [place].pump, 2 SPRAY NASAL DAILY, #1 BOTTLE TO EACH NOSTRIL 09/15/16 Albuterol Sulfate* (Ventolin HFA*) 18 Gm Hfa.aer.ad, 2 PUFF INHALATION Q6H, #1 INHALER 09/15/16 Aclidinium [place] (Tudorza Pressair) 400 Mcg Aer.pow.ba, 400 MCG IH BID, EA 09/15/16 Albuterol Sulfate* (Albuterol Sulfate* Neb) 0.083%-3 Ml Neb, 2.5 MG NEB Q3H Y for WHEEZING AND SOB, #30 VIAL 09/15/16 Diphenhydramine Hcl* (Benadryl*) 50 Mg Cap, 50 MG PO Q8 Y for ITCHING, CAP 09/15/16 Esomeprazole Mag Trihydrate (Nexium) 40 Mg Capsule.dr, 40 MG PO DAILY, #30 CAP 09/15/16 Lubiprostone* (Amitiza*) 24 Mcg Capsule, 24 MCG PO BID, #60 CAP 09/15/16 Hydrocodone/Acetaminophen ([place] 10-325 Tablet) 1 Each Tablet, 1 EACH PO Q6 Y for SEVERE PAIN LEVEL 7-10, TAB 09/15/16 Aspirin* (Aspirin* EC) 81 Mg Tablet.dr, 81 MG PO DAILY, TAB 09/15/16 Gabapentin* (Neurontin*) 300 Mg Capsule, 300 MG PO BID, #60 CAP 09/15/16 Baclofen* (Baclofen*) 10 Mg Tablet, 10-20 MG PO BID, TAB 09/15/16 Spironolactone* (Aldactone*) 25 Mg Tablet, 25 MG PO DAILY, #30 TAB 09/15/16 Furosemide* (Furosemide*) 40 Mg Tablet, 40 MG PO DAILY, TAB 09/15/16 Isosorbide Mononitrate* (Isosorbide Mononitrate*) 60 Mg Tab.er.24h, 60 MG PO DAILY, TAB 09/15/16 Atenolol* (Atenolol*) 25 Mg Tablet, 25 MG PO BID, #60 TAB 09/15/16 Allergies Allergies: Coded Allergies: adalimumab (Verified Allergy, Severe, CHEST FLUID RETENTION, 10/30/16) PER PT "HUMIRA GIVES ME PNEUMONIA" azithromycin (Verified Allergy, Severe, HEART CONDITION, 10/30/16) methotrexate (Verified Allergy, Severe, LOW WBC, 10/30/16) PER PT "IT LOWER MY WHITE BLOOD CELL COUNT". rofecoxib (Verified Allergy, Severe, RASH, 10/30/16) aspirin (Verified Adverse Reaction, Unknown, STOMACH PAIN, 10/30/16) celecoxib (Verified Adverse Reaction, Unknown, STOMACH PAIN, 10/30/16) codeine (Verified Adverse Reaction, Unknown, STOMACH PAIN, 10/30/16) PMhx/Soc COPD, pulmonary fibrosis, CHF, mitral valve prolapse, CAD, pulmonary hypertension, CVA, dyslipidemia, central line placement to the right upper chest History of Surgery: Yes (gallbladder, hysterectomy, R breast lumpectomy, rt lung biopsy, appendix,) Anesthesia Reaction: No Hx Neurological Disorder: No Hx Respiratory Disorders: Yes (COPD, pulmonary fibrosis ) Hx Cardiac Disorders: Yes (Mitral valve prolapse, CHF, [place], CAD) Hx Psychiatric Problems: No Hx Miscellaneous Medical Probl: Yes (CVA, HTN, HLD, PUL HTN, COPD, pul fibrosis ) Hx Alcohol Use: No Hx Substance Use: No Hx Tobacco Use: Yes Physical Exam Vitals Vital Signs Date Time Temp Pulse Resp B/P Pulse Ox O2 Delivery O2 Flow Rate FiO2 12/12/16 15:26 98.1 78 18 138/69 96 Room Air 12/12/16 12:55 73 18 94 Nasal Cannula 6.0 12/12/16 12:05 98.1 73 18 94 Physical Exam GENERAL: Well-developed, well-nourished, dehydrated, afebrile HEENT: Dry mucous membranes, pink conjunctiva, no cervical spine tenderness or step-off deformities, no goiter, no jaundice or icterus, extraocular movements intact without pain. No submandibular induration, and no pharyngeal erythema NEURO: Alert and oriented 3, cranial nerves II through XII intact bilaterally, pupils equal round reactive to light, no focal deficits or facial asymmetry, sensation intact distally Strength 5/5 in upper and lower extremities bilaterally CARDIAC: Regular rate and rhythm, no murmurs rubs or gallops LUNGS: Clear bilaterally no wheezing crackles or stridor ABDOMEN: Soft nontender, no guarding, no rigidity, no rebound, no psoas sign no obturator sign. Normoactive bowel sounds SKIN: Warm and dry to touch, no abrasions, contusions, or hematomas, no lacerations, no ecchymosis, no target lesions, and without ulcers EXTREMITIES: No clubbing cyanosis or edema, calves are bilaterally symmetrical, no Homans sign, no popliteal cord sign. Distal pulses equal and bilateral PSYCH: Normal affect without agitation or irritability Result Diagram: 12/12/16 1225 12/12/16 1225 Results 24 hrs Laboratory Tests Test 12/12/16 12:25 12/12/16 14:45 White Blood Count 6.610^3/ul Red Blood Count 4.3510^6/ul Hemoglobin 12.3g/dl Hematocrit 38.5% Mean Corpuscular Volume 88.5fl Mean Corpuscular Hemoglobin 28.3pg Mean Corpuscular Hemoglobin Concent 31.9g/dl Red Cell Distribution Width 14.1% Platelet Count 49559^3/UL Mean Platelet Volume 9.2fl Neutrophils % 51.6% Lymphocytes % 37.4% Monocytes % 5.8% Eosinophils % 3.9% Basophils % 0.5% Nucleated Red Blood Cells % 0.0/100WBC Neutrophils # 3.410^3/ul Lymphocytes # 2.510^3/ul Monocytes # 0.410^3/ul Eosinophils # 0.310^3/ul Basophils # 0.010^3/ul Nucleated Red Blood Cells # 0.010^3/ul Sodium Level 137mmol/L Potassium Level 3.9mmol/L Chloride Level 101mmol/L Carbon Dioxide Level 28mmol/L Anion Gap 12 Blood Urea Nitrogen 16mg/dl Creatinine 1.15mg/dl Glucose Level 110mg/dl Calcium Level 9.8mg/dl Total Bilirubin 0.2mg/dl Direct Bilirubin 0.00mg/dl Indirect Bilirubin 0.2mg/dl Aspartate Amino Transf (AST/SGOT) 22IU/L Alanine Aminotransferase (ALT/SGPT) 29IU/L Alkaline Phosphatase 93IU/L Troponin I < 0.012ng/ml Total Protein 8.2g/dl Albumin 4.1g/dl Globulin 4.10g/dl Albumin/Globulin Ratio 1.00 Lipase 95U/L Urine Color YELLOW Urine Clarity CLEAR Urine pH 5.0 Urine Specific [place] 1.021 Urine Ketones NEGATIVEmg/dL Urine Nitrite NEGATIVEmg/dL Urine Bilirubin NEGATIVEmg/dL Urine Urobilinogen 1+mg/dL Urine Leukocyte Esterase 1+[place]/ul Urine Microscopic RBC 2/HPF Urine Microscopic WBC 1/HPF Urine Mucus FEW/HPF Urine Hemoglobin NEGATIVEmg/dL Urine Glucose NEGATIVEmg/dL Urine Total Protein NEGATIVEmg/dl Current Medications Medications (Trade) Dose Ordered Sig/Julius Route PRN Reason Start Time Stop Time Status Last Admin Dose Admin Sodium Chloride (NS) 1,000 ml @ 1,000 mls/hr Q1H STAT IV 12/12/16 12:14 12/12/16 13:13 DC 12/12/16 12:25 Ondansetron HCl (Zofran Inj) 4 mg ONCE STAT IV 12/12/16 12:14 12/12/16 12:16 DC 12/12/16 12:26 Albuterol (Proventil 0.5% (Neb)) 5 mg ONCE STAT INH 12/12/16 12:21 12/12/16 12:22 DC 12/12/16 12:54 Cephalexin (Keflex) 500 mg ONCE ONCE PO 12/12/16 16:00 12/12/16 16:00 DC 12/12/16 15:26 Procedures/MDM IV line was established patient was placed on b[place]er induction rhythm strip revealed a sinus rhythm at about 80 bpm with upright P and T waves. Patient was afebrile. EKG performed, read by me: 77 bpm, normal sinus rhythm, normal axis, no acute ST segment changes, narrow QRS complex, with good R-wave progression in precordial leads. One view chest x-ray performed, read by me revealed no acute infiltrates, no pneumothorax, no end of the diaphragm. Central line placed in the right subclavian vein. I administered 1 L normal saline intravenously, Zofran 4 mg IV, and albuterol 5 mg via nebulizer. Patient felt better. CBC and electrolytes were normal, liver function tests are normal, troponin was negative. Urine analysis was concerning for early urinary tract infection I administered cephalexin 500 mg p.o. 1 here in the ER. Differential diagnoses considered, included but not limited to acute coronary syndrome, pulmonary embolism, aortic dissection, abdominal aortic aneurysm, sepsis, stroke, meningitis, encephalitis, pneumonia, appendicitis, cholecystitis , bowel obstruction, pyelonephritis, nephrolithiasis, cystitis, as well as metabolic, hematologic, and electrolyte abnormalities. As well as abscess, cellulitis, fractures, and dislocations. Patient feels much better at this time, and vital signs are normal, symptoms have improved. I did give strict instructions to return to the ED if symptoms continue or worsen, patient will otherwise follow-up with primary care physician. Patient understood instructions and agreed to plan. Disclaimer: Inadvertent spelling and grammatical errors are likely due to EHR/ dictation software use and do not reflect on the overall quality of patient care. Also, please note that the electronic time recorded on this note does not necessarily reflect the actual time of the patient encounter. Departure Diagnosis: Primary Impression: Dizziness Additional Impression: UTI (urinary tract infection) Qualified Code: N30.00 - Acute cystitis without hematuria Condition: MCKINLEY Monge MD Dec 12, 2016 12:11
[2016-12-12] MEDS ORDERED: SOD CHLORIDE 0.9% 1,000 ML IV STA (12:14)
[2016-12-12] MEDS ORDERED: ONDANSETRON 4 MG INJ IV STA (12:14)
[2016-12-12] MEDS ORDERED: ALBUTEROL 0.5% (NEB) 2.5 MG/0.5 ML AMP INH STA (12:21)
[2016-12-12 12:41] LABS: BASOPHILS % 0.5 % (0.0-2.0); EOSINOPHILS # 0.3 10^3/ul (0.0-0.5); EOSINOPHILS % 3.9 % (0.0-7.0); HEMATOCRIT 38.5 % (37.0-47.0); HEMOGLOBIN 12.3 g/dl (12.0-16.0); LYMPHOCYTES # 2.5 10^3/ul (0.8-2.9); LYMPHOCYTES % 37.4 % (15.0-51.0); MEAN CORPUSCULAR HEMOGLOBIN 28.3 pg (29.0-33.0); MEAN CORPUSCULAR HGB CONC 31.9 g/dl (32.0-37.0); MEAN CORPUSCULAR VOLUME 88.5 fl (82.0-101.0); MEAN PLATELET VOLUME 9.2 fl (7.4-10.4); MONOCYTE # 0.4 10^3/ul (0.3-0.9); MONOCYTES % 5.8 % (0.0-11.0); NEUTROPHIL # 3.4 10^3/ul (1.6-7.5); NEUTROPHILS % 51.6 % (39.0-77.0); PLATELET COUNT 403 10^3/UL (140-415); RED BLOOD COUNT 4.35 10^6/ul (4.20-5.40); RED CELL DISTRIBUTION WIDTH 14.1 % (11.5-14.5); WHITE BLOOD COUNT 6.6 10^3/ul (4.8-10.8)
[2016-12-12 13:02] LABS: ALANINE AMINOTRANSFERASE 29 IU/L (13-69); ALBUMIN 4.1 g/dl (3.3-4.9); ALKALINE PHOSPHATASE 93 IU/L (42-121); ANION GAP 12 (8-16); ASPARTATE AMINO TRANSFERASE 22 IU/L (15-46); BILIRUBIN,INDIRECT 0.2 mg/dl (0-1.1); BILIRUBIN,TOTAL 0.2 mg/dl (0.2-1.3); BLOOD UREA NITROGEN 16 mg/dl (7-20); CALCIUM 9.8 mg/dl (8.4-10.2); CARBON DIOXIDE 28 mmol/L (21-31); CHLORIDE 101 mmol/L (97-110); CREATININE 1.15 mg/dl (0.44-1.00); GLUCOSE 110 mg/dl (70-220); POTASSIUM 3.9 mmol/L (3.5-5.1); SODIUM 137 mmol/L (135-144); TOTAL PROTEIN 8.2 g/dl (6.1-8.1)
--- NOTE | 2016-12-12 13:14 | RADRPT ---
PROCEDURE: XR Chest. CLINICAL INDICATION: Shortness of breath. TECHNIQUE: Single frontal view. COMPARISON: 10/30/2016. FINDINGS: There is a tunneled right subclavian vein implanted port central venous catheter with the tip in the lower superior vena cava. There is mild atelectasis at the lung bases. The lungs are otherwise valerie r. The heart size is normal. There is no pleural effusion. There is no pneumothorax. IMPRESSION: 1. Tunneled catheter tip in the lower superior vena cava. 2. Mild atelectasis at the lung bases. 3. Otherwise unremarkable study. RPTAT: QQ .Josafat Monteiro MD, MD Date Time Electronically viewed and signed by .Josafat Monteiro MD, MD on 12/12/2016 13:13 .R/
[2016-12-12 13:15] LABS: TROPONIN-I < 0.012 ng/ml (0.00-0.12)
[2016-12-12 14:54] LABS: ADD UMIC YES; UR ASCORBIC ACID 40 mg/dL (NEGATIVE); UR BILIRUBIN (Dip) NEGATIVE (NEGATIVE); UR BLOOD (Dip) NEGATIVE (NEGATIVE); UR CLARITY CLEAR (CLEAR); UR COLOR YELLOW (YELLOW); UR GLUCOSE (Dip) NEGATIVE (NEGATIVE); UR KETONES (Dip) NEGATIVE (NEGATIVE); UR LEUKOCYTE ESTERASE (Dip) 1+ Leu/ul (NEGATIVE); UR MUCUS FEW /HPF (NONE SEEN); UR NITRITE (Dip) NEGATIVE (NEGATIVE); UR RBC 2 /HPF (0-5); UR SPECIFIC GRAVITY (Dip) 1.021 (1.003-1.030); UR TOTAL PROTEIN (Dip) NEGATIVE (NEGATIVE); UR UROBILINOGEN (Dip) 1+ mg/dL (NEGATIVE)
[2016-12-12] MEDS ORDERED: ALBU8.5H3 INH (15:09)
[2016-12-12] MEDS ORDERED: CEPH-443 PO (15:09)
[2016-12-12 15:26] VITALS: BP 138/69; PULSE 78; RESP 18; TEMP 98.1
[2016-12-12] MEDS ORDERED: CEPHALEXIN 500 MG CAP PO ONE (16:00)
== END 2016-12-12 15:27 | disposition home or self-care (01) ==
LOC: E/R 12:03
DX: R42 Dizziness and giddiness (principal); N30.00 Acute cystitis without hematuria; J44.9 Chronic obstructive pulmonary disease, unspecified; I50.9 Heart failure, unspecified; I25.10 Atherosclerotic heart disease of native coronary artery without angina pectoris; Z79.01 Long term (current) use of anticoagulants; Z79.82 Long term (current) use of aspirin; Z87.891 Personal history of nicotine dependence
CPT/HCPCS: 36415; 71010; 80053; 81001; 83690; 84484; 85025; 93005; 94644; 96374; 99285; J2405; J7030